=== PATIENT | female | born 1940 | race Caucasian/White ===

== ENCOUNTER → 2016-11-04 | Outpatient (CLI) | payer MEDICARE ==
[~2016-11-04] MED LIST: AMLO10TA2 PO; ASPI-557 PO; ATEN100T PO; CALC-699 PO; HYOS0.3739 PO; LOSA100T44 PO; MULT-833 PO; PRIM50TA30 PO; TOLT2CAP8 PO
== END ==
LOC: WC.BC 13:11
DX: Z12.31 Encounter for screening mammogram for malignant neoplasm of breast (principal); N64.59 Other signs and symptoms in breast; N64.89 Other specified disorders of breast
CPT/HCPCS: 77063; G0202

== ENCOUNTER 2016-12-17 03:17 | Emergency (ER) | payer MEDICARE ==
[~2016-12-17] VITALS: Ht 162.6 cm; Wt 75.0 kg
--- NOTE | 2016-12-17 03:17 | NUR ---
ED ARRIVAL BED #1 Addendum: 12/17/16 at 0520 by EJASONR ARRIVED BY EMS
--- OUTSIDE RECORDS SUMMARY | 2016-12-17 03:21 | XMS REPORT | Continuity of Care Document ---
Author Author [facility] Organization [facility] Address Unknown Phone Unavailable Support Name Relationship Address Phone COURTNEY VALLE MD Caregiver [address] [place] [address] HEATHER CAMPO MD Caregiver [address] [place] [phone] BC SLAUGHTER MD Caregiver [address] [place] [address] MARIELLE AMAYA Next Of Kin [address] [place] [address] Insurance Providers Payer Name Policy Number Subscriber Name Relationship Medicareadvantra Ppo [id number] Karthik Amaya 20 Self Advance Directives Directive Response Recorded Date/Time Advanced Directives Type None 09/02/14 5:08am Ordered Resuscitation Status Full Code 09/02/14 3:28am Resuscitation Documents on File No 09/02/14 5:46am Problems Medical Problems Problem Onset Date Status Open fracture ankle, bimalleolar Unknown Active Open fracture ankle, bimalleolar Unknown Active History of CVA (cerebrovascular accident) Unknown Active Hypertension Unknown Active Open fracture ankle, bimalleolar Unknown Active Bimalleolar ankle fracture Unknown Active Medications Medication Dose Route Sig Days/Qty Instructions Order Date Discontinued Date Status Atenolol 50 Mg PO DAILY 08/22/09 Active Calcium Carbonate/Vitamin D3 TWICE A DAY 08/22/09 Active Multivitamins W-Minerals DAILY 08/22/09 Active Atenolol TWICE A DAY 09/02/14 Active Losartan/Hydrochlorothiazide 1 Tab PO DAILY 09/02/14 Active Amlodipine Besylate 10 Mg PO DAILY 09/02/14 Active Clopidogrel Bisulfate DA 09/02/14 09/03/14 Discontinued Primidone 2 Tab PO THREE TIMES A DAY 09/02/14 Active Hyoscyamine Sulfate 1 Tab PO DAILY 09/02/14 Active Hydrocodone/Acetaminophen 1-2 Tab PO Q4H PRN PAIN 60 Qty 09/03/14 Active Docusate Sodium 1 Cap PO TWICE A DAY 30 Qty 09/03/14 Active Aspirin 325 Mg PO TWICE A DAY 0 Qty 09/03/14 Active Social History Social History Problem Response Recorded Date/Time Chewing Tobacco Status No 09/02/2014 2:29am Hx Substance Use No 09/02/2014 2:29am Hx Alcohol Use Y 3-4 A DAY 09/02/2014 2:29am Has the pt used tobacco in the last 12 months No 09/02/2014 5:48am Tobacco Usage none 09/02/2014 9:52am Query Response Start Date Stop Date Smoking Status Former smoker Hospital Discharge Instructions No hospital discharge instructions. Plan of Care No plan of care. Functional Status Query Response Date Recorded Physical Hygiene Self September 03, 2014 2:03pm Disabilities Visual September 03, 2014 2:03pm Devices Used Glasses Cane September 03, 2014 2:03pm Dressing Self September 03, 2014 2:03pm Ambulation Self September 03, 2014 2:03pm Diet Self September 03, 2014 2:03pm Mental Status Alert September 03, 2014 2:03pm Disabilities Visual September 03, 2014 2:03pm Devices Used Glasses Cane September 03, 2014 2:03pm Physical Hygiene Self September 03, 2014 2:03pm Dressing Self September 03, 2014 2:03pm Ambulation Self September 03, 2014 2:03pm Diet Self September 03, 2014 2:03pm Allergies, Adverse Reactions, Alerts Allergen Type Severity Reaction Status Last Updated Lisinopril Allergy Severe uncontrolled coughing Active 09/02/14 Immunizations Name Given Type Hx Influenza Vaccination Y 2013 Historical Hx Pneumococcal Vaccination Y 2008 Historical Hx Influenza Vaccination Y 2013 Historical Hx Tetanus Toxoid Vaccination Y unknown Historical Vital Signs Acute Vital Signs Vital Response Date/Time Temperature (Fahrenheit) 99.0 deg F (96.8 - 99.1) Temperature (Calculated Celsius) 37.62243 degrees C (36.0 - 37.3) Temperature Source Oral Pulse Rate (adult) 74 bpm (60 - 100) Respiratory Rate 16 breaths/min (10 - 20) O2 Sat by Pulse Oximetry 94 % (90 - 100) Oxygen Delivery Method Room Air Blood Pressure 139/64 mm Hg Blood Pressure Source Automatic Cuff Height 5 ft 4 in Weight 172 lb Body Mass Index 29.0 kg/m^2 Results Test Source Date Result Interp. Ref. Range Comments Urine Culture Indicated September 02, 2014 4:30am Cult reflexed &setup - Has specimen been collected/obtained? Y Urine Bacteria September 02, 2014 4:30am None seen - Has specimen been collected/obtained? Y Urine Squamous Epithelial Cells September 02, 2014 4:30am None seen - Has specimen been collected/obtained? Y Urine RBC September 02, 2014 4:30am None seen /HPF - Has specimen been collected/obtained? Y Urine WBC September 02, 2014 4:30am 10-20 /HPF H - MICROSCOPIC DONE UNSPUN. <2ML Urine Blood September 02, 2014 4:30am Trace-intact H - Has specimen been collected/obtained? Y Urine Bilirubin September 02, 2014 4:30am Negative - Has specimen been collected/obtained? Y Urine Urobilinogen September 02, 2014 4:30am 0.2 EU/DL - Has specimen been collected/obtained? Y Urine Ketones September 02, 2014 4:30am Negative - Has specimen been collected/obtained? Y Urine Glucose (UA) September 02, 2014 4:30am Negative - Has specimen been collected/obtained? Y Urine Protein September 02, 2014 4:30am Negative - Has specimen been collected/obtained? Y Urine Nitrite September 02, 2014 4:30am Positive H - Has specimen been collected/obtained? Y Urine Leukocyte Esterase September 02, 2014 4:30am 3+ H - Has specimen been collected/obtained? Y Urine pH September 02, 2014 4:30am 7.0 - Has specimen been collected/ obtained? Y Urine Specific [place] September 02, 2014 4:30am 1.015 - Has specimen been collected/obtained? Y Urine Turbidity September 02, 2014 4:30am Clear - Has specimen been collected/obtained? Y Urine Color September 02, 2014 4:30am Yellow - Has specimen been collected/obtained? Y Urine Collection Type September 02, 2014 4:30am Cleancatch-midstream - Has specimen been collected/obtained? Y Alanine Aminotransferase (ALT/SGPT) September 02, 2014 2:38am 30 U/L N 9- 52 Albumin September 02, 2014 2:38am 4.6 G/DL N 3.5-5.0 Albumin/Globulin Ratio September 02, 2014 2:38am 1.4 RATIO N 1.1-2.2 Alcohol, Quantitative September 02, 2014 2:38am 138 MG/DL - Alkaline Phosphatase September 02, 2014 2:38am 94 U/L N 38-126 Anion Gap September 02, 2014 2:38am 16 MEQ/L H 5-15 Aspartate Amino Transf (AST/SGOT) September 02, 2014 2:38am 36 U/L N 14- 36 BUN/Creatinine Ratio September 02, 2014 2:38am 17 RATIO N 6-26 Basophils # (Auto) September 02, 2014 2:38am 0.0 T/MM3 N 0-0.2 Basophils (%) (Auto) September 02, 2014 2:38am 0.5 % N 0-2 Blood Urea Nitrogen September 02, 2014 2:38am 12.0 MG/DL N 7-17 Calcium Level September 02, 2014 2:38am 9.4 MG/DL N 8.4-10.2 Calculated Osmolality September 02, 2014 2:38am 270 MOSM/KG N 261-280 Carbon Dioxide Level September 02, 2014 2:38am 24 MEQ/L N 22-30 Chemistry Specimen Hemolysis September 02, 2014 2:38am < 15 0-25 0-25: No Hemolysis.26-70: Slight Hemolysis - can falsely elevate K and Urine Protein. 71-285: Moderate Hemolysis - can falsely elevate K, Troponin I, CA 19-9, PTH, CSF GLucose, and Urine Protein, and can falsely decrease Phenytoin. 286-999: Gross Hemolysis - can falsely elevate K, Troponin I, CA 19-9, PTH, CSF Glucose, and Urine Protine, and can falsely decrease Phenytoin. Recommend specimen recollection. Chloride Level September 02, 2014 2:38am 100 MEQ/L N 98-107 Creatinine September 02, 2014 2:38am 0.7 MG/DL N 0.7-1.2 EKG August 22, 2009 10:15pm Complete - Eosinophils # (Auto) September 02, 2014 2:38am 0.1 T/MM3 N 0-0.5 Eosinophils (%) (Auto) September 02, 2014 2:38am 1.5 % N 0-4 Globulin September 02, 2014 2:38am 3.3 G/DL N 2.4-3.6 Glomerular Filtration Rate Calc September 02, 2014 2:38am 82 - Glucose Level September 02, 2014 2:38am 124 MG/DL H 65-110 Hematocrit September 02, 2014 2:38am 40.5 % N 36-46 Hemoglobin September 02, 2014 2:38am 13.5 GM/DL N 12-16 Icterus Index September 02, 2014 2:38am < 2 0-7 Immature Granulocyte # (Auto) September 02, 2014 2:38am 0.02 T/MM3 N 0.00- 0.03 Immature Granulocyte % (Auto) September 02, 2014 2:38am 0.3 % N 0.0-0.5 Lymphocytes # (Auto) September 02, 2014 2:38am 1.2 T/MM3 N 1-4.8 Lymphocytes (%) (Auto) September 02, 2014 2:38am 20.2 % L 23-45 Mean Corpuscular Hemoglobin September 02, 2014 2:38am 32.2 UUG N 26-34 Mean Corpuscular Hemoglobin Concent September 02, 2014 2:38am 33.3 GM/DL N 31-37 Mean Corpuscular Volume September 02, 2014 2:38am 96.7 UM3 N 80-100 Mean Platelet Volume September 02, 2014 2:38am 9.2 UM3 L 9.4-12.4 Monocytes # (Auto) September 02, 2014 2:38am 0.4 T/MM3 N 0-0.8 Monocytes (%) (Auto) September 02, 2014 2:38am 6.2 % N 0-9.0 Neutrophils # (Auto) September 02, 2014 2:38am 4.4 T/MM3 N 1.8-7.7 Neutrophils (%) (Auto) September 02, 2014 2:38am 71.3 % H 33-66 Platelet Count September 02, 2014 2:38am 231 T/MM3 N 130-400 Potassium Level September 02, 2014 2:38am 3.7 MEQ/L N 3.6-5 RDW Standard Deviation September 02, 2014 2:38am 42.1 FL N 36.9-50.2 Red Blood Count September 02, 2014 2:38am 4.19 M/MM3 N 4.00-5.20 Sodium Level September 02, 2014 2:38am 140 MEQ/L N 134-144 Total Bilirubin September 02, 2014 2:38am 0.30 MG/DL N 0.20-1.30 Total Protein September 02, 2014 2:38am 7.9 G/DL N 6.3-8.2 Turbidity September 02, 2014 2:38am < 20 0-20 White Blood Count September 02, 2014 2:38am 6.2 T/MM3 N 4.5-11.0 Urine Culture Urine, Clean Catch-Midstream September 02, 2014 4:50am Mixed [place] Prob. Contaminants Name: KARTHIK AMAYA Unit #: [id number] : 1940 Sex: F Loc / Svc: SRG DOS: 09/02/14 Signed Report #: [id number] DIAGNOSTIC IMAGING REPORT TYPE OF EXAM: RF FLUOROSCOPY CHARGE </=1 HR Dictated By: KINZA BOX MD INDICATION: ITS.REASON: CLOSED REDUCTION RF ANKLE RIGHT 2 VIEW: Comparison: Ankle radiographs dated September 02, 2014 Findings: Two fluoroscopic spot images show closed reduction of the bimalleolar ankle fracture with improved alignment of the fracture fragments and splinting. Impression: Fluoroscopy as above. . Procedures Procedure Status Date Provider(s) Closed reduction of dislocation completed 09/02/14 BC SLAUGHTER MD
--- OUTSIDE RECORDS SUMMARY | 2016-12-17 03:21 | XMS REPORT | Continuity of Care Document ---
Author Author [facility] Organization [facility] Address Unknown Phone Unavailable Support Name Relationship Address Phone COURTNEY VALLE MD Caregiver [address] [place] [address] HEATHER CAMPO MD Caregiver [address] [phone] BC BETTS MD Caregiver [address] [place] [address] MARIELLE AMAYA Next Of Kin [address] [place] [address] Insurance Providers Payer Name Policy Number Subscriber Name Relationship Medicareadvantra Ppo [id number] Karthik Amaya 20 Self Advance Directives Directive Response Recorded Date/Time Advanced Directives Type None 09/02/14 5:08am Ordered Resuscitation Status Full Code 09/02/14 3:28am Resuscitation Documents on File No 09/02/14 5:46am Chief Complaint and Reason for Visit Chief Complaint BIMALLEOLAR FX R ANKLE Reason for Visit Open fracture ankle, bimalleolar Open fracture ankle, bimalleolar History of CVA (cerebrovascular accident) Hypertension Open fracture ankle, bimalleolar Bimalleolar ankle fracture Problems Medical Problems Problem Onset Date Status [...] Smoking Status Former smoker Hospital Discharge Instructions Instructions: Care Instructions: Reason for Hospitalization: right ankle bimalleolar ankle fracture I was in the hospital because (patient own words): "BECAUSE I FELL AND BROKE MY ANKLE" Discharge Diet: regluar Discharge Activity: non weight bearing right leg Follow Up Appointments: [address] Betts. call [phone] to arrange. FOLLOW UP APPOINTMENT IS ON Monday09-08-14 AT 10:15 AM, NEEDS TO CHECK IN AT THE OFFICE AT 9:45 AM. Wound/Incision Care: keep splint and dressing dry. Durable Medical Equipment: walker is already ordered Notify Physician If: fever greater than 101, chest pain, shortness of breath, calf pain Condition at time of discharge: Fair Bilirubin Level: 7.2 Congenital Heart Disease Screening Result: Pass Plan of Care Discharge Date 09/03/14 4:10pm Disposition 01 DISCHARGED HOME, SELF-CARE Instructions/Education Provided [facility] Ortho Fracture Instruction Fracture Reduction -- Closed Prescriptions See Medications Section Functional Status Query Response Date Recorded Physical [...] F (96.8 - 99.1) Temperature (Calculated Celsius) 37.42358 degrees C (36.0 - 37.3) Temperature Source [...] specimen been collected/ obtained? Y Urine Specific [place] September 02, 2014 4:30am 1.015 - Has [...] 2014 4:50am Mixed [place] Prob. Contaminants Name: KRATHIK AMAYA Unit #: [id number] : 1940 Sex: F [facility] [place] DOS: 09/02/14 Signed Report #: [id number] DIAGNOSTIC IMAGING REPORT TYPE OF EXAM: RF [...] Closed reduction of dislocation completed 09/02/14 BC BETTS MD Encounters Encounter Location Date/Time Admitted Inpatient [facility] 09/02/14 3:23am Recent Diagnosis Open fracture ankle, bimalleolar Open fracture ankle, bimalleolar History of CVA (cerebrovascular accident) Hypertension Open fracture ankle, bimalleolar Bimalleolar ankle fracture
--- OUTSIDE RECORDS SUMMARY | 2016-12-17 03:21 | XMS REPORT | Referral Summary ---
Author Author [facility] Organization [facility] Address Unknown Phone Unavailable Care Team Providers Care Credit Director Name Role Phone Gino Neri Primary Care Physician [phone] Encounter VC Date(s): 02/16/16 - 02/16/16 [facility], [address] [place] [address] Discharge Diagnosis: Hyperpigmented skin lesion. Discharge Disposition: 01-Home or Self Care Attending Physician: Mari Neri DO Admitting Physician: Mari Neri DO Vital Signs Most recent to 1 oldest [Reference Range]: Peripheral Pulse 68 bpm Rate [60-100 bpm] (02/16/16 2:32 PM) Respiratory Rate 18 br/min [14-20 br/min] (02/16/16 2:32 PM) Blood Pressure 122/76 mmHg [90-140/60-90 mmHg] (02/16/16 2:32 PM) SpO2 96 % (02/16/16 2:32 PM) Problem List Condition Effective Dates Status Health Status Informant Arthritis(Confirmed) Active Benign essential Active hypertension(Confirm ed) Chicken pox as Active child(Confirmed) Micro Embolus to Active Foot(Confirmed) Hypertension(Confirm Resolved ed) Irritable bowel Active syndrome(Confirmed) Osteoarthritis(Confi Active rmed) Osteopenia(Confirmed Active ) Overweight(Confirmed Active ) Peripheral vascular Active disease(Confirmed) Pneumonia(Confirmed) 1982 Active Pure Active hypercholesterolemia (Confirmed) Senile Active osteoporosis(Confirm ed) Skin Active condition(Confirmed) Stroke(Confirmed) Active TIA(Confirmed) Active Allergies, Adverse Reactions, Alerts Substance Reaction Severity Status lisinopril Active Medications amLODIPine 10 mg oral tablet 10 mg 1 tabs, Oral, Daily, # 90 tabs, 1 Refill(s), Pharmacy: [facility] [id number], 1 tabs Oral Daily Start Date: 09/18/15 Status: Ordered aspirin 81 mg, Oral, Daily, 0 Refill(s) Start Date: 07/27/15 Status: Ordered atenolol 50 mg oral tablet See Instructions, TAKE 1 TABLET BY MOUTH DAILY ALONG WITH 100MG TABLET TO TOTAL 250MG DAILY, # 30 tabs, 3 Refill(s), eRx: [facility] [id number], TAKE 1 TABLET BY MOUTH DAILY ALONG WITH 100MG TABLET TO TOTAL 250MG DAILY Start Date: 01/26/16 Status: Ordered Calcium 600+D 600 mg-200 intl units oral tablet tabs, Oral, BID, 0 Refill(s) Start Date: 04/30/14 Status: Ordered Detrol LA 2 mg oral capsule, extended release 2 mg 1 caps, Oral, Daily, # 30 caps, 2 Refill(s), Pharmacy: [facility] [id number], 1 caps Oral Daily Start Date: 12/22/15 Status: Ordered hyoscyamine 0.375 mg oral tablet, extended release See Instructions, 1 TABS ORAL Q12HR,INSTR, # 60 tabs, 5 Refill(s), Pharmacy: [facility] [id number], 1 TABS ORAL Q12HR,INSTR Start Date: 07/27/15 Status: Ordered losartan 100 mg oral tablet 100 mg 1 tabs, Oral, Daily, # 30 tabs, 5 Refill(s), Pharmacy: [facility] [id number], 1 tabs Oral Daily Start Date: 07/15/15 Status: Ordered Multivitamins oral tablet 1 tabs, Oral, Daily Start Date: 04/30/14 Status: Ordered naproxen 500 mg oral tablet See Instructions, 1 TABS ORAL BID, # 60 tabs, eRx: [facility] [id number], 1 TABS ORAL BID Start Date: 09/18/15 Status: Ordered primidone 50 mg oral tablet 2 tabs, Oral, TID Start Date: 04/30/14 Status: Ordered rOPINIRole 0.5 mg oral tablet 0.5 mg 1 tabs, Oral, BID, 0 Refill(s) Start Date: 02/16/16 Status: Ordered Results No data available for this section Immunizations Vaccine Date Refusal Reason tetanus/diphth/pertuss (Tdap) adult/adol1 09/02/14 tetanus/diphth/pertuss (Tdap) adult/adol 12/17/12 hepatitis B pediatric vaccine 11/26/07 hepatitis B pediatric vaccine 07/05/07 hepatitis B pediatric vaccine 05/25/07 influenza virus vaccine, inactivated 05/29/15 influenza virus vaccine, live 04/23/13 influenza virus vaccine, live 05/25/12 pneumococcal 13-valent conjugate vaccine 12/08/14 pneumococcal 23-polyvalent vaccine 05/25/07 tetanus-diphth toxoids (Td) adult/adol 05/08/02 zoster vaccine live 04/06/09 1Location History: given at [facility] Procedures Procedure Date Related Diagnosis Body Site Colonoscopic polypectomy1 11/23/15 Hysterectomy 1986 Adenoidectomy Carpal tunnel release - B/L Cataract extraction Dilation and curettage Tonsillectomy 1April 2015 colonoscopy tubular adenoma 1, sigmoid diverticulosis, repeat in 5 years Social History Social History Type Response Smoking Status Former smoker; Type: Cigarettes1 1Quit in 1990 Assessment and Plan Extracted from: Title: ACUTE skin lesion Author: Mari Neri DO Date: 02/16/16 Assessment/Plan Hyperpigmented skin lesion. Due to the atypical appearance of this lesion I would recommend the patient return to clinicat her convenience to have a completely excised. Ordered: Office Visit Level 3 Est [address]88
--- OUTSIDE RECORDS SUMMARY | 2016-12-17 03:21 | XMS REPORT | Referral Summary ---
Author Author [facility] Organization [facility] Address Unknown Phone Unavailable Care Team Providers [facility] Name Role Phone Gino Neri Primary Care Physician [phone] Encounter VC Date(s): 05/29/15 - 05/29/15 [facility] [address] [place] [address] Discharge Disposition: 01-Home or Self Care Attending Physician: Mari Neri DO Admitting Physician: Mari Neri DO Vital Signs No data available for this section Problem List Condition Effective Dates Status Health [...] Active Medications amLODIPine 10 mg oral tablet See Instructions, TAKE 1 TABLET BY MOUTH EVERY DAY., # 90 unknown unit, 2 Refill (s), eRx: [facility] [id number], TAKE 1 TABLET BY MOUTH EVERY DAY. Start Date: 07/07/14 Status: Ordered atenolol 100 mg oral tablet See Instructions, 1 TABS ORAL DAILY,INSTR:*LAST REFILL UNTIL SEEN*; YOU WILL NEED TO SET UP APPOINTMENT WITH A NEW DOC. OR DR. NERI, # 30 tabs, eRx: [facility] [id number], 1 TABS ORAL DAILY,INSTR:*LAST REFILL UNTIL SEEN*; YOU WILL NEED TO SET UP... Start Date: 05/21/15 Status: Ordered Calcium 600+D 600 mg-200 intl units oral tablet tabs, Oral, BID, 0 Refill(s) Start Date: 04/30/14 Status: Ordered clopidogrel 75 mg oral tablet See Instructions, TAKE 1 TABLET BY MOUTH EVERY DAY EXCEPT SUNDAYS NEEDED, # 30 tabs, 0 Refill(s), [place], [facility] [id number], * last refill utnil seen*; you will need to set up appointment with Dr. Neri, TAKE 1 TABLET BY MOUTH EVERY... Start Date: 05/06/15 Status: Ordered Colace 100 mg oral capsule 1 caps, Oral, BID, 0 Refill(s) Start Date: 09/05/14 Status: Ordered hyoscyamine 0.375 mg oral tablet, extended release 0.375 mg 1 tabs, Oral, q12hr, *last script until seen* you will need to make appointment with new doc. or Dr. Neri, # 60 tabs, 0 Refill(s), Pharmacy: [facility] [id number], 1 tabs Oral q12hr,Instr:*last script until seen*; you will need to make... Start Date: 04/03/15 Status: Ordered losartan 100 mg oral tablet 100 mg 1 tabs, Oral, Daily, *last refill until seen* you will need to set up appointment with a new doc. or Dr. Neri, # 60 tabs, 0 Refill(s), Pharmacy: [facility] [id number], 1 tabs Oral Daily,Instr:*last refill until seen*; you will need to set... Start Date: 04/15/15 Status: Ordered Multivitamins oral tablet 1 tabs, Oral, Daily Start Date: 04/30/14 Status: Ordered primidone 50 mg oral tablet 2 tabs, Oral, TID Start Date: 04/30/14 Status: Ordered Results No data available for [...] vaccine live 04/06/09 1Location History: given at [facility] Procedures Procedure Date Related Diagnosis Body Site Hysterectomy 1986 Adenoidectomy Carpal tunnel release - B/L Cataract extraction Dilation and curettage Tonsillectomy Social History Social History Type Response Smoking Status Former smoker; Type: Cigarettes1 1Quit in 1990 Assessment and Plan No data available for this section
--- OUTSIDE RECORDS SUMMARY | 2016-12-17 03:21 | XMS REPORT | Referral Summary ---
Author Author [facility] Organization [facility] Address Unknown Phone Unavailable Care Team Providers Care Helper/Driver Name Role Phone Gino Neri Primary Care Physician [phone] Encounter VC Date(s): 06/23/15 - 06/23/15 [facility] [address] [place] [id number] Discharge Diagnosis: Cerumen impaction Discharge Diagnosis: Hypertension Discharge Diagnosis: Irritable bowel syndrome Discharge Disposition: 01-Home or Self Care Attending Physician: Mari Neri DO Admitting Physician: Mari Neri DO Vital Signs Most recent to 1 oldest [Reference Range]: Peripheral Pulse 70 bpm Rate [60-100 bpm] (06/23/15 2:33 PM) Blood Pressure 142/80 mmHg [90-140/60-90 mmHg] *HI* (06/23/15 2:33 PM) SpO2 94 % (06/23/15 2:33 PM) Problem List Condition Effective Dates Status [...] MOUTH EVERY DAY., # 90 unknown unit, eRx: [facility] [id number], TAKE 1 TABLET BY MOUTH EVERY DAY. Start Date: 06/18/15 Status: Ordered atenolol 100 mg oral tablet See Instructions, 1 TABS ORAL BID,INSTR:PATIENT TAKES 250MG DAILY, # 60 tabs, eRx: [facility] [id number], 1 TABS ORAL BID,INSTR:PATIENT TAKES 250MG DAILY Start Date: 06/18/15 Status: Ordered atenolol 50 mg oral tablet 50 mg 1 tabs, Oral, Daily, # 30 tabs, 0 Refill(s) Start Date: 06/23/15 Status: Ordered Calcium 600+D 600 mg-200 intl units oral tablet tabs, Oral, BID, 0 Refill(s) Start Date: 04/30/14 Status: Ordered clopidogrel 75 mg oral tablet See Instructions, TAKE 1 TABLET BY MOUTH EVERY DAY EXCEPT SUNDAYS NEEDED, # 30 tabs, BROOKE, eRx: [facility] [id number], TAKE 1 TABLET BY MOUTH EVERY DAY EXCEPT SUNDAYS NEEDED Start Date: 06/18/15 Status: Ordered hyoscyamine 0.375 mg oral tablet, extended release See Instructions, 1 TABS ORAL Q12HR,INSTR:*LAST SCRIPT UNTIL SEEN*; YOU WILL NEED TO MAKE APPOINTMENT WITH NEW DOC. OR DR. NERI, # 60 tabs, eRx: [facility] [id number], 1 TABS ORAL Q12HR,INSTR:*LAST SCRIPT UNTIL SEEN*; YOU WILL NEED TO MAKE APPOIN... Start Date: 06/02/15 Status: Ordered losartan 100 mg oral tablet 100 mg 1 tabs, Oral, Daily, NEEDS TO SET UP APPOINTMENT, # 30 tabs, 0 Refill(s) , Pharmacy: [facility] [id number], 1 tabs Oral Daily,Instr:NEEDS TO SET UP APPOINTMENT Start Date: 06/15/15 Status: Ordered Multivitamins oral tablet 1 tabs, [...] pediatric vaccine 05/25/07 influenza virus vaccine, inactivated 10/23/15 influenza virus vaccine, live 04/23/13 influenza virus vaccine, live 05/25/12 pneumococcal 13-valent conjugate vaccine 12/08/14 pneumococcal 23-polyvalent vaccine 05/25/07 tetanus-diphth toxoids (Td) adult/adol 05/08/02 zoster vaccine live 04/06/09 1Location History: given [place] [facility] [place] Procedures Procedure Date Related Diagnosis Body Site Hysterectomy 1986 Adenoidectomy Carpal tunnel release - B/L Cataract extraction Dilation and curettage Tonsillectomy Social History Social History Type Response Smoking Status Former smoker; Type: Cigarettes1 1Quit in 1990 Assessment and Plan Extracted from: Title: Office Visit Note Author: Mari Neri DO Date: 06/23/15 Assessment/Plan Cerumen impaction Ear lavage today. Ordered: Office Visit Level 4 Est 82927 Hypertension Stable, labs as below. Return to clinic 6 months. Ordered: Comprehensive Metabolic Panel Office Visit Level 4 Est 79628 Irritable bowel syndrome Continue hyoscyamine, return to clinic 6 months. Patient is due for colonoscopy and this was recommended and form provided today. Ordered: Office Visit Level 4 Est 97283 Orders: Lipid Panel
--- OUTSIDE RECORDS SUMMARY | 2016-12-17 03:21 | XMS REPORT | Continuity of Care Document ---
Author Author [facility] Organization [facility] Address Unknown Phone Unavailable Allergies Medications Problems Procedures Results Encounters ACCT No. Visit Date/Time Discharge Status Pt. Type Provider Facility Loc./Unit Complaint [id number] 10/28/2013 13:01:00 10/28/2013 23 :59:59 CLS Outpatient
--- OUTSIDE RECORDS SUMMARY | 2016-12-17 03:21 | XMS REPORT | Referral Summary ---
Author Author [facility] Organization [facility] Address Unknown Phone Unavailable Care Team Providers Care Cold Rolling Machine Setter Name Role Phone Gino Neri Primary Care Physician [phone] Encounter VC Date(s): 12/22/15 - 12/22/15 [facility] [address] [place] [address] Discharge Diagnosis: OAB (overactive bladder) Discharge Diagnosis: Benign essential hypertension Discharge Diagnosis: Irritable bowel syndrome Discharge Disposition: 01-Home or Self Care Attending Physician: Mari Neri DO Admitting Physician: Mari Neri DO Vital Signs Most recent to 1 oldest [Reference Range]: Temperature Tympanic 37.0 degC [36.6-38.1 degC] (12/22/15 2:26 PM) Peripheral Pulse 78 bpm Rate [60-100 bpm] (12/22/15 2:26 PM) Respiratory Rate 17 br/min [14-20 br/min] (12/22/15 2:26 PM) Blood Pressure 148/80 mmHg [90-140/60-90 mmHg] *HI* (12/22/15 2:26 PM) SpO2 97 % (12/22/15 2:26 PM) Problem List Condition Effective Dates Status [...] Daily, # 90 tabs, 1 Refill(s), Pharmacy: [id number], 1 tabs Oral Daily Start Date: 09/18/15 Status: Ordered aspirin 81 mg, Oral, Daily, 0 Refill(s) Start Date: 07/27/15 Status: Ordered atenolol 100 mg oral tablet See Instructions, TAKE 1 TABLET BY MOUTH TWICE DAILY ALONG WITH 50MG TABLET TO TOTAL 250MG DAILY, # 60 tabs, 2 Refill(s), eRx: [facility] [id number], TAKE 1 TABLET BY MOUTH TWICE DAILY ALONG WITH 50MG TABLET TO TOTAL 250MG DAILY Start Date: 12/22/15 Status: Ordered atenolol 50 mg oral tablet See Instructions, TAKE 1 TABLET BY MOUTH DAILY ALONG WITH 100MG TABLET TO TOTAL 250MG DAILY, # 30 tabs, eRx: [facility] [id number], TAKE 1 TABLET BY MOUTH DAILY ALONG WITH 100MG TABLET TO TOTAL 250MG DAILY Start Date: 12/22/15 Status: Ordered Calcium 600+D 600 mg-200 intl units oral tablet tabs, Oral, BID, 0 Refill(s) Start Date: 04/30/14 Status: Ordered Detrol LA 2 mg oral capsule, extended release 2 mg 1 caps, Oral, Daily, # 30 caps, 2 Refill(s), Pharmacy: [facility] [id number], 1 caps Oral Daily Start Date: 12/22/15 Status: Ordered hyoscyamine 0.375 mg oral tablet, extended release See Instructions, 1 TABS ORAL Q12HR,INSTR, # 60 tabs, 5 Refill(s), Pharmacy: [facility] [id number], 1 TABS ORAL Q12HR,INSTR Start Date: 07/27/15 Status: Ordered losartan 100 mg oral tablet 100 mg 1 tabs, Oral, Daily, # 30 tabs, 5 Refill(s), Pharmacy: [facility] [id number], 1 tabs Oral Daily Start Date: 07/15/15 Status: Ordered Multivitamins oral tablet 1 tabs, Oral, Daily Start Date: 04/30/14 Status: Ordered naproxen 500 mg oral tablet See Instructions, 1 TABS ORAL BID, # 60 tabs, eRx: [facility] [id number], 1 TABS ORAL BID Start Date: 09/18/15 [...] vaccine live 04/06/09 1Location History: given at [facility] [place] [place] Procedures Procedure Date Related Diagnosis Body Site [...] Visit Note Author: Mari Neri DO Date: 12/22/15 Assessment/Plan Benign essential hypertension Continue current medication regimen. Return to clinic in 6 months. Recheck blood pressure today was 138/82. Ordered: Office Visit Level 4 Est 06954 Irritable bowel syndrome Continue hyoscyamine. Return to clinic 6 months. Ordered: Office Visit Level 4 Est 23642 OAB (overactive bladder) We will try Detrol again. We discussed multiple options and this is the one she would like to take. We also discussed Keagle exercises to see if this will help. If she is doing well on the Detrol she should return to clinic in 6 months. If she is not she should return to clinic sooner. Ordered: Office Visit Level 4 Est 27452 Orders: atenolol, See Instructions, TAKE 1 TABLET BY MOUTH DAILY ALONG WITH 100MG TABLET TO TOTAL 250MG DAILY, # 30 tabs, eRx: [facility] [id number], TAKE 1 TABLET BY MOUTH DAILY ALONG WITH 100MG TABLET TO TOTAL 250MG DAILY atenolol, See Instructions, TAKE 1 TABLET BY MOUTH TWICE DAILY ALONG WITH 50MG TABLET TO TOTAL 250MG DAILY, # 60 tabs, 2 Refill(s), eRx: [facility] [id number], TAKE 1 TABLET BY MOUTH TWICE DAILY ALONG WITH 50MG TABLET TO TOTAL 250MG DAILY tolterodine, 2 mg 1 caps, Oral, Daily, # 30 caps, 2 Refill(s), Pharmacy: [facility] [id number], 1 caps Oral Daily
--- OUTSIDE RECORDS SUMMARY | 2016-12-17 03:21 | XMS REPORT | Referral Summary ---
Author Author [facility] Organization [facility] Address Unknown Phone Unavailable Care Team Providers Care Therapeutic Consultant Name Role Phone Gino Neri Primary Care Physician [phone] Encounter VC Date(s): 09/07/16 - 09/07/16 [facility] [address] [place] [address] Discharge Diagnosis: Non-traumatic compression fracture of L2 lumbar vertebra Discharge Diagnosis: Benign essential hypertension Discharge Diagnosis: Osteopenia Discharge Disposition: 01-Home or Self Care Attending Physician: Mari Neri DO Admitting Physician: Mari Neri DO Vital Signs Most recent to 1 oldest [Reference Range]: Temperature Tympanic 36.6 degC [36.6-38.1 degC] (09/07/16 3:45 PM) Peripheral Pulse 79 bpm Rate [60-100 bpm] (09/07/16 3:45 PM) Blood Pressure 160/102 mmHg [90-140/60-90 mmHg] *HI* (09/07/16 3:45 PM) Problem List Condition Effective Dates Status Health Status Informant Arthritis(Confirmed) Active Benign essential Active hypertension(Confirm ed) Chicken pox as Active child(Confirmed) Non-traumatic Active compression fracture of L2 lumbar vertebra(Confirmed) Micro Embolus to Active Foot(Confirmed) Benign essential Active tremor(Confirmed) OAB (overactive Active bladder)(Confirmed) Hypertension(Confirm Resolved ed) Irritable bowel Active syndrome(Confirmed) Osteoarthritis(Confi Active rmed) Osteopenia(Confirmed Active ) Overweight(Confirmed Active ) Peripheral vascular Active disease(Confirmed) Pneumonia(Confirmed) 1982 Active Pure Active hypercholesterolemia (Confirmed) Senile Active osteoporosis(Confirm ed) Skin Active condition(Confirmed) Stroke(Confirmed) Active TIA(Confirmed) Active Allergies, Adverse Reactions, Alerts Substance Reaction Severity Status lisinopril Active Medications amLODIPine 10 mg oral tablet See Instructions, TAKE 1 TABLET BY MOUTH DAILY, # 90 tabs, [facility], TAKE 1 TABLET BY MOUTH DAILY Start Date: 06/14/16 Status: Ordered aspirin 81 mg, Oral, Daily, 0 Refill(s) Start Date: 07/27/15 Status: Ordered atenolol 50 mg oral tablet See Instructions, TAKE 1 TABLET BY MOUTH DAILY ALONG WITH 100MG TABLET TO TOTAL 250MG DAILY, # 90 tabs, [id number] Start Date: 08/31/16 Status: Ordered Calcium 600+D 600 mg-200 intl units oral tablet tabs, Oral, BID, 0 Refill(s) Start Date: 04/30/14 Status: Ordered cloNIDine 0.1 mg oral tablet 0.1 mg 1 tabs, Oral, BID, # 60 tabs, 0 Refill(s), Pharmacy: [facility], 1 tabs Oral BID Start Date: 09/07/16 Status: Ordered hydrALAZINE 10 mg oral tablet See Instructions, TAKE 1 TABLET BY MOUTH THREE TIMES DAILY, # 180 tabs, [id number] Start Date: 07/25/16 Status: Ordered hyoscyamine 0.375 mg oral tablet, extended release See Instructions, 1 TABS ORAL Q12HR,INSTR, # 60 tabs, 1 Refill(s), [facility], 1 TABS ORAL Q12HR,INSTR Start Date: 08/03/16 Status: Ordered losartan 100 mg oral tablet See Instructions, TAKE 1 TABLET BY MOUTH EVERY DAY, # 90 tabs, [id number] Start Date: 08/02/16 Status: Ordered Multivitamins oral tablet 1 tabs, Oral, Daily Start Date: 04/30/14 Status: Ordered naproxen 500 mg oral tablet See Instructions, 1 TABS ORAL BID, # 60 tabs, eRx: [facility] [id number], 1 TABS ORAL BID Start Date: 09/18/15 Status: Ordered primidone 50 mg oral tablet 2 tabs, Oral, TID Start Date: 04/30/14 Status: Ordered tolterodine 2 mg oral capsule, extended release See Instructions, TAKE 1 CAPSULE BY MOUTH DAILY, # 90 caps, 3 Refill(s), eRx: [facility] [id number], TAKE 1 CAPSULE BY MOUTH DAILY Start Date: 06/29/16 Status: Ordered tolterodine 2 mg oral capsule, extended release See Instructions, TAKE 1 CAPSULE BY MOUTH DAILY, # 30 caps, 3 Refill(s), Pharmacy: [facility] [id number], TAKE 1 CAPSULE BY MOUTH DAILY Start Date: 08/03/16 Status: Ordered Results No data available for this section Immunizations Given and Recorded Vaccine Date Status Refusal Reason tetanus/diphth/pertuss (Tdap) adult/adol1 09/02/14 Recorded tetanus/diphth/pertuss (Tdap) adult/adol 12/17/12 Recorded hepatitis B pediatric vaccine 11/26/07 Given hepatitis B pediatric vaccine 07/05/07 Given hepatitis B pediatric vaccine 05/25/07 Given influenza virus vaccine, inactivated 05/24/16 Given influenza virus vaccine, inactivated 05/29/15 Given influenza virus vaccine, live 04/23/13 Given influenza virus vaccine, live 05/25/12 Given pneumococcal 13-valent conjugate vaccine 12/08/14 Given pneumococcal 23-polyvalent vaccine 05/25/07 Recorded tetanus-diphth toxoids (Td) adult/adol 05/08/02 Given zoster vaccine live 04/06/09 Given 1Location History: [place] [facility] [place] Procedures Procedure Date Related Diagnosis Body Site Colonoscopic polypectomy1 11/23/15 Hysterectomy 1986 Adenoidectomy Carpal tunnel release - B/L Cataract extraction Dilation and curettage Tonsillectomy 1April 2015 colonoscopy tubular adenoma 1, sigmoid diverticulosis, repeat in 5 years Social History Social History Type Response Smoking Status Former smoker; Type: Cigarettes1 1Quit in 1990 Assessment and Plan Extracted from: Title: Ambulatory Patient Education Author: Mari Neri DO Date: 09/07/16 Preventive Medicine Managing Your High Blood Pressure Blood pressure is a measurement of how forceful your blood is pressing against the arias of the arteries. Arteries are muscular tubes within the circulatory system. Blood pressure does not stay the same. Blood pressure rises when you are active, excited, or nervous; and it lowers during sleep and relaxation. If the numbers measuring your blood pressure stay above normal most of the time, you are at risk for health problems. High blood pressure (hypertension) is a long-term (chronic) condition in which blood pressure is elevated. A blood pressure reading is recorded as two numbers, such as 120 over 80 (or 120 /80). The first, higher number is called the systolic pressure. It is a measure of the pressure in your arteries as the heart beats. The second, lower number is called the diastolic pressure. It is a measure of the pressure in your arteries as the heart relaxes between beats. Keeping your blood pressure in a normal range is important to your overall health and prevention of health problems, such as heart disease and stroke. When your blood pressure is uncontrolled, your heart has to work harder than normal. High blood pressure is a very common condition in adults because blood pressure tends to rise with age. Men and women are equally likely to have hypertension but at different times in life. Before age 45, men are more likely to have hypertension. After 65 years of age, women are more likely to have it. Hypertension is especially common in Americans. This condition often has no signs or symptoms. The cause of the condition is usually not known. Your caregiver can help you come up with a plan to keep your blood pressure in a normal, healthy range. BLOOD PRESSURE STAGES Blood pressure is classified into four stages: normal, prehypertension, stage 1 , and stage 2. Your blood pressure reading will be used to determine what type of treatment, if any, is necessary. Appropriate treatment options are tied to these four stages: Normal Systolic pressure (mm Hg): below 120. Diastolic pressure (mm Hg): below 80. Prehypertension Systolic pressure (mm Hg): 120 to 139. Diastolic pressure (mm Hg): 80 to 89. Stage1 Systolic pressure (mm Hg): 140 to 159. Diastolic pressure (mm Hg): 90 to 99. Stage2 Systolic pressure (mm Hg): 160 or above. Diastolic pressure (mm Hg): 100 or above. RISKS RELATED TO HIGH BLOOD PRESSURE Managing your blood pressure is an important responsibility. Uncontrolled high blood pressure can lead to: A heart attack. A stroke. A weakened blood vessel (aneurysm). Heart failure. Kidney damage. Eye damage. Metabolic syndrome. Memory and concentration problems. HOW TO MANAGE YOUR BLOOD PRESSURE Blood pressure can be managed effectively with lifestyle changes and medicines ( if needed). Your caregiver will help you come up with a plan to bring your blood pressure within a normal range. Your plan should include the following: Education Read all information provided by your caregivers about how to control blood pressure. Educate yourself on the latest guidelines and treatment recommendations. New research is always being done to further define the risks and treatments for high blood pressure. Lifestylechanges Control your weight. Avoid smoking. Stay physically active. Reduce the amount of salt in your diet. Reduce stress. Control any chronic conditions, such as high cholesterol or diabetes. Reduce your alcohol intake. Medicines Several medicines (antihypertensive medicines) are available, if needed, to bring blood pressure within a normal range. Communication Review all the medicines you take with your caregiver because there may be side effects or interactions. Talk with your caregiver about your diet, exercise habits, and other lifestyle factors that may be contributing to high blood pressure. See your caregiver regularly. Your caregiver can help you create and adjust your plan for managing high blood pressure. RECOMMENDATIONS FOR TREATMENT AND FOLLOW-UP The following recommendations are based on current guidelines for managing high blood pressure in non adults. Use these recommendations to identify the proper follow-up period or treatment option based on your blood pressure reading. You can discuss these options with your caregiver. Systolic pressure of 120 to 139 or diastolic pressure of 80 to 89: Follow up with your caregiver as directed. Systolic pressure of 140 to 160 or diastolic pressure of 90 to 100: Follow up with your caregiver within 2 months. Systolic pressure above 160 or diastolic pressure above 100: Follow up with your caregiver within 1 month. Systolic pressure above 180 or diastolic pressure above 110: Consider antihypertensive therapy; follow up with your caregiver within 1 week. Systolic pressure above 200 or diastolic pressure above 120: Begin antihypertensive therapy; follow up with your caregiver within 1 week. This information is not intended to replace advice given to you by your health care provider. Make sure you discuss any questions you have with your health care provider. Document Released: 04/17/2013 Document Reviewed: 04/17/2013 [employer] Patient Education 2016 [employer] No follow up information was provided. Extracted from: Title: Office Visit Note Author: Mari Neri DO Date: 09/07/16 Assessment/Plan Benign essential hypertension We will add clonidine and have patient return to clinic in 4 weeks. He is to continue blood pressure log. Ordered: Office Visit Level 4 Est 23607 Non-traumatic compression fracture of L2 lumbar vertebra Pain is improved with Motrin and chiropractic, we'll discontinue the hydrocodone. Ordered: Office Visit Level 4 Est 67359 Osteopenia Given patient's nontraumatic compression fractureand the fact that she is failed oral medicationI will recommend Prolia at this time. Ordered: Office Visit Level 4 Est 45985
--- OUTSIDE RECORDS SUMMARY | 2016-12-17 03:21 | XMS REPORT | Referral Summary ---
Author Author [facility] Organization [facility] Address Unknown Phone Unavailable Care Team Providers Care Asset Liability Analyst Name Role Phone Gino Neri Primary Care Physician [phone] Encounter VC Date(s): 03/03/16 - 03/03/16 [facility], Family [address] [place] [address]- Discharge Diagnosis: Benign essential hypertension Discharge Diagnosis: Arm skin lesion, left Discharge Disposition: 01-Home or Self Care Attending Physician: Mari Neri DO Vital Signs Most recent to 1 oldest [Reference Range]: Peripheral Pulse 68 bpm Rate [60-100 bpm] (03/03/16 3:24 PM) Blood Pressure 180/92 mmHg [90-140/60-90 mmHg] *HI* (03/03/16 3:24 PM) Problem List Condition Effective Dates Status [...] Daily, # 90 tabs, 1 Refill(s), Pharmacy: [id number], 1 tabs Oral Daily Start Date: 09/18/15 Status: Ordered aspirin 81 mg, Oral, Daily, 0 Refill(s) Start Date: 07/27/15 Status: Ordered atenolol 50 mg oral tablet See Instructions, TAKE 1 TABLET BY MOUTH DAILY ALONG WITH 100MG TABLET TO TOTAL 250MG DAILY, # 30 tabs, 3 Refill(s), [facility]: [id number], TAKE 1 TABLET BY MOUTH DAILY ALONG WITH 100MG TABLET TO TOTAL 250MG DAILY Start Date: 01/26/16 Status: Ordered Calcium 600+D 600 mg-200 intl units oral tablet tabs, Oral, BID, 0 Refill(s) Start Date: 04/30/14 Status: Ordered Detrol LA 2 mg oral capsule, extended release 2 mg 1 caps, Oral, Daily, # 30 caps, 2 Refill(s), Pharmacy: [facility] [id number], 1 caps Oral Daily Start Date: 12/22/15 Status: Ordered hyoscyamine 0.375 mg oral tablet, extended release See Instructions, 1 TABS ORAL Q12HR,INSTR, # 60 tabs, 5 Refill(s), Pharmacy: [facility] [id number], 1 TABS ORAL Q12HR,INSTR Start Date: 07/27/15 Status: Ordered losartan 100 mg oral tablet 100 mg 1 tabs, Oral, Daily, # 30 tabs, 5 Refill(s), [facility] [address], 1 tabs Oral Daily Start Date: 07/15/15 Status: Ordered Multivitamins oral tablet 1 tabs, Oral, Daily Start Date: 04/30/14 Status: Ordered naproxen 500 mg oral tablet See Instructions, 1 TABS ORAL BID, # 60 tabs, [id number], 1 TABS ORAL BID Start Date: 09/18/15 [...] vaccine live 04/06/09 1Location History: given at [facility] [place] Procedures Procedure Date Related Diagnosis Body Site Colonoscopic polypectomy1 11/23/15 Hysterectomy 1986 Adenoidectomy Carpal tunnel release - B/L Cataract extraction Dilation and curettage Tonsillectomy 1April 2015 colonoscopy tubular adenoma 1, sigmoid diverticulosis, repeat in 5 years Social History Social History Type Response Smoking Status Former smoker; Type: Cigarettes1 1Quit in 1990 Assessment and Plan Extracted from: Title: NO CHARGE visit Author: Mari Neri DO Date: 03/03/16 Assessment/Plan Arm skin lesion, left Resolved at this time so we will no charge this visit as no procedure is needed. Ordered: Office Visit No Charge Benign essential hypertension will have pt recheck BP at home and if still elevated will take an extra amlodipine. she will keep track of her bp for the next few days and call us if still elevated.
--- OUTSIDE RECORDS SUMMARY | 2016-12-17 03:21 | XMS REPORT | Referral Summary ---
Author Author [facility], [facility] Medicine Organization [facility] Address Unknown Phone Unavailable Care Team Providers Care Pbx Mechanic Name Role Phone Gino Neri Primary Care Physician [phone] Encounter [facility] Date(s): 07/27/15 - 07/27/15 [facility] [address] [place] [address] Discharge Diagnosis: Acute pain of left hip Discharge Diagnosis: Elevated serum GGT level Discharge Disposition: 01-Home or Self Care Attending Physician: Mari Neri DO Admitting Physician: Mari Neri DO Vital Signs Most recent to 1 oldest [Reference Range]: Temperature Tympanic 36.7 degC [36.6-38.1 degC] (07/27/15 10:19 AM) Peripheral Pulse 61 bpm Rate [60-100 bpm] (07/27/15 10:19 AM) Respiratory Rate 17 br/min [14-20 br/min] (07/27/15 10:19 AM) Blood Pressure 128/78 mmHg [90-140/60-90 mmHg] (07/27/15 10:19 AM) Problem List Condition Effective Dates Status Health [...] EVERY DAY., # 90 unknown unit, eRx: [facility] [id number], TAKE 1 TABLET BY MOUTH EVERY DAY. Start Date: 06/18/15 Status: Ordered aspirin 81 mg, Oral, Daily, 0 Refill(s) Start Date: 07/27/15 Status: Ordered atenolol 100 mg oral tablet See Instructions, 1 TABS ORAL BID,INSTR:PATIENT TAKES 250MG DAILY, # 60 tabs, 2 Refill(s), eRx: [facility] [id number], 1 TABS ORAL BID,INSTR:PATIENT TAKES 250MG DAILY Start Date: 07/15/15 Status: Ordered atenolol 50 mg oral tablet See Instructions, 1 TABS ORAL DAILY, # 30 tabs, eRx: [facility] [id number] , 1 TABS ORAL DAILY Start Date: 07/15/15 Status: Ordered Calcium 600+D 600 mg-200 intl units oral tablet tabs, Oral, BID, 0 Refill(s) Start Date: 04/30/14 Status: Ordered hyoscyamine 0.375 mg oral tablet, extended release See Instructions, 1 TABS ORAL Q12HR,INSTR, # 60 tabs, 5 Refill(s), Pharmacy: [facility] [id number], 1 TABS ORAL Q12HR,INSTR Start Date: 07/27/15 Status: Ordered losartan 100 mg oral tablet 100 mg 1 tabs, Oral, Daily, # 30 tabs, 5 Refill(s), Pharmacy: [facility] [id number], 1 tabs Oral Daily Start Date: 07/15/15 Status: Ordered Multivitamins oral tablet 1 tabs, Oral, Daily Start Date: 04/30/14 Status: Ordered naproxen 500 mg oral tablet 500 mg 1 tabs, Oral, BID, # 60 tabs, 0 Refill(s), Pharmacy: [facility] [id number], 1 tabs Oral BID Start Date: 07/27/15 Status: Ordered primidone 50 mg oral tablet [...] vaccine live 04/06/09 1Location History: given at [facility] Procedures Procedure Date Related Diagnosis Body Site Hysterectomy 1986 Adenoidectomy Carpal tunnel release - B/L Cataract extraction Dilation and curettage Tonsillectomy Social History Social History Type Response Smoking Status Former smoker; Type: Cigarettes1 1Quit in 1990 Assessment and Plan Extracted from: Title: Office Visit Note Author: Mari Neri DO Date: 07/27/15 Assessment/Plan Acute pain of left hip We'll give her naproxen but advised patient she can only take this for 2 weeks and then she must stop according to her heart history. We did discuss tramadol as needed she would call us for a prescription for this. Ordered: Office Visit Level 4 Est 18376 Elevated serum GGT level After thoroughly going over the differential diagnosis, patient elected to have ultrasound today instead of waiting for repeat lab work in 3 months. If ultrasound is normal we'll proceed with repeat lab work in 3 months. Ordered: Office Visit Level 4 Est 47355 US Abdomen Complete Orders: hyoscyamine, See Instructions, 1 TABS ORAL Q12HR,INSTR, # 60 tabs, 5 Refill(s), Pharmacy: [facility] [id number], 1 TABS ORAL Q12HR,INSTR naproxen, 500 mg 1 tabs, Oral, BID, # 60 tabs, 0 Refill(s), Pharmacy: [facility] [id number], 1 tabs Oral BID
--- OUTSIDE RECORDS SUMMARY | 2016-12-17 03:22 | XMS REPORT | Referral Summary ---
Author Author [facility] Organization [facility] Address Unknown Phone Unavailable Care Team Providers Care Communication Clerk Name Role Phone Gino Neri Primary Care Physician [phone] Encounter [facility] Date(s): 12/08/14 - 12/08/14 [facility] [address] [place] [address] Discharge Diagnosis: Need for vaccination with 13-polyvalent pneumococcal conjugate vaccine Discharge Diagnosis: Irritable bowel syndrome Discharge Diagnosis: Arthritis Discharge Diagnosis: Benign essential hypertension Discharge Disposition: 01-Home or Self Care Attending Physician: Dorothea Johnson MD Admitting Physician: Dorothea Johnson MD Vital Signs Most recent to 1 oldest [Reference Range]: Temperature Tympanic 36.9 degC [36.6-38.1 degC] (12/08/14 10:45 AM) Peripheral Pulse 60 bpm Rate [60-100 bpm] (12/08/14 10:45 AM) Respiratory Rate 16 br/min [14-20 br/min] (12/08/14 10:45 AM) Systolic Blood 152 mmHg Pressure [90-140 *HI* mmHg] (12/08/14 10:45 AM) Problem List Condition Effective Dates Status [...] 90 unknown unit, 2 Refill (s), eRx: [facility] [id number], TAKE 1 TABLET BY MOUTH EVERY DAY. Start Date: 07/07/14 Status: Ordered atenolol 100 mg oral tablet See Instructions, 1 TABS ORAL DAILY,INSTR:*LAST REFILL UNTIL SEEN*; YOU WILL NEED TO SET UP APPOINTMENT WITH A NEW DOC. OR DR. NERI, # 30 tabs, eRx: [facility] [id number], 1 TABS ORAL DAILY,INSTR:*LAST REFILL UNTIL SEEN*; YOU WILL NEED TO SET UP... Start Date: 05/21/15 Status: Ordered Calcium 600+D 600 mg-200 intl units oral tablet tabs, Oral, BID, 0 Refill(s) Start Date: 04/30/14 Status: Ordered clopidogrel 75 mg oral tablet See Instructions, TAKE 1 TABLET BY MOUTH EVERY DAY EXCEPT SUNDAYS NEEDED, # 30 tabs, 0 Refill(s), [place], Pharmacy: [facility], * last refill utnil seen*; you will [...] OR DR. NERI, # 60 tabs, eRx: [facility] [id number], 1 TABS ORAL Q12HR,INSTR:*LAST SCRIPT UNTIL SEEN*; YOU WILL NEED TO MAKE APPOIN... Start Date: 06/02/15 Status: Ordered losartan 100 mg oral tablet 100 mg 1 tabs, Oral, Daily, *last refill until seen* you will need to set up appointment with a new doc. or Dr. Neri, # 60 tabs, 0 Refill(s), Pharmacy: [facility] [id number], 1 tabs Oral Daily,Instr:*last refill until seen*; [...] vaccine live 04/06/09 1Location History: given at [facility] Procedures Procedure Date Related Diagnosis Body Site Hysterectomy 1986 Adenoidectomy Carpal tunnel release - B/L Cataract extraction Dilation and curettage Tonsillectomy Social History Social History Type Response Smoking Status Former smoker; Type: Cigarettes1 1Quit in 1990 Assessment and Plan Extracted from: Title: Ambulatory Patient Education Author: Dorothea Johnson MD Date: 12/09/14 Family Medicine Arthritis, Nonspecific Arthritis is inflammation of a joint. This usually means pain, redness, warmth or swelling are present. One or more joints may be involved. There are a number of types of arthritis. Your caregiver may not be able to tell what type of arthritis you have right away. CAUSES The most common cause of arthritis is the wear and tear on the joint ( osteoarthritis ). This causes damage to the cartilage, which can break down over time. The knees, hips, back and neck are most often affected by this type of arthritis. Other types of arthritis and common causes of joint pain include: Sprains and other injuries near the joint. Sometimes minor sprains and injuries cause pain and swelling that develop hours later. Rheumatoid arthritis. This affects hands, feet and knees. It usually affects both sides of your body at the same time. It is often associated with chronic ailments, fever, weight loss and general weakness. Crystal arthritis. Gout and pseudo gout can cause occasional acute severe pain, redness and swelling in the foot, ankle, or knee. Infectious arthritis. Bacteria can get into a joint through a break in overlying skin. This can cause infection of the joint. Bacteria and viruses can also spread through the blood and affect your joints. Drug, infectious and allergy reactions. Sometimes joints can become mildly painful and slightly swollen with these types of illnesses. SYMPTOMS Pain is the main symptom. Your joint or joints can also be red, swollen and warm or hot to the touch. You may have a fever with certain types of arthritis, or even feel overall ill. The joint with arthritis will hurt with movement. Stiffness is present with some types of arthritis. DIAGNOSIS Your caregiver will suspect arthritis based on your description of your symptoms and on your exam. Testing may be needed to find the type of arthritis: Blood and sometimes urine tests. X-ray tests and sometimes CT or MRI scans. Removal of fluid from the joint (arthrocentesis ) is done to check for bacteria, crystals or other causes. Your caregiver (or a specialist) will numb the area over the joint with a local anesthetic, and use a needle to remove joint fluid for examination. This procedure is only minimally uncomfortable. Even with these tests, your caregiver may not be able to tell what kind of arthritis you have. Consultation with a specialist (bottle line worker ) may be helpful. TREATMENT Your caregiver will discuss with you treatment specific to your type of arthritis. If the specific type cannot be determined, then the following general recommendations may apply. Treatment of severe joint pain includes: Rest. Elevation. Anti-inflammatory medication (for example, ibuprofen) may be prescribed. Avoiding activities that cause increased pain. Only take bjzu-itb-ttsosnu or prescription medicines for pain and discomfort as recommended by your caregiver. Cold packs over an inflamed joint may be used for 10 to 15 minutes every hour. Hot packs sometimes feel better, but do not use overnight. Do not use hot packs if you are diabetic without your caregiver's permission. A cortisone shot into arthritic joints may help reduce pain and swelling. Any acute arthritis that gets worse over the next 1 to 2 days needs to be looked at to be sure there is no joint infection. Long-term arthritis treatment involves modifying activities and lifestyle to reduce joint stress jarring. This can include weight loss. Also, exercise is needed to nourish the joint cartilage and remove waste. This helps keep the muscles around the joint strong. HOME CARE INSTRUCTIONS Do not take aspirin to relieve pain if gout is suspected. This elevates uric acid levels. Only take qzmp-nir-aarhjff or prescription medicines for pain, discomfort or fever as directed by your caregiver. Rest the joint as much as possible. If your joint is swollen, keep it elevated. Use crutches if the painful joint is in your leg. Drinking plenty of fluids may help for certain types of arthritis. Follow your caregiver's dietary instructions. Try low-impact exercise such as: Swimming. Water aerobics. Biking. Walking. Morning stiffness is often relieved by a warm shower. Put your joints through regular oyzgo-zh-penaay. SEEK MEDICAL CARE IF: You do not feel better in 24 hours or are getting worse. You have side effects to medications, or are not getting better with treatment. SEEK IMMEDIATE MEDICAL CARE IF: You have a fever. You develop severe joint pain, swelling or redness. Many joints are involved and become painful and swollen. There is severe back pain and/or leg weakness. You have loss of bowel or bladder control. Document Released: 08/31/2005 Document Revised: 10/15/2012 Document Reviewed: [facility] Patient Information 2014 [employer]. No follow up information was provided. Extracted from: Title: Office Visit Note Author: Dorothea Johnson MD Date: 12/09/14 Assessment/Plan Arthritis Benign essential hypertension Irritable bowel syndrome Need for vaccination with 13-polyvalent pneumococcal conjugate vaccine
--- OUTSIDE RECORDS SUMMARY | 2016-12-17 03:22 | XMS REPORT | Referral Summary ---
Author Author [facility] Organization [facility] Address Unknown Phone Unavailable Care Team Providers Care Hansard Reporter Name Role Phone Gino Neri Primary Care Physician [phone] Encounter [facility] Date(s): 05/29/15 - 05/29/15 [facility], [address] [place] [address] Discharge Disposition: 01-Home or Self Care Attending [...] Daily, # 90 tabs, 1 Refill(s), Pharmacy: [facility] [id number], 1 tabs Oral Daily Start Date: 09/18/15 Status: Ordered aspirin 81 mg, Oral, Daily, 0 Refill(s) Start Date: 07/27/15 Status: Ordered atenolol 100 mg oral tablet See Instructions, 1 TABS ORAL BID,INSTR:PATIENT TAKES 250MG DAILY, # 60 tabs, 1 Refill(s), eRx: [facility] [id number], 1 TABS ORAL BID,INSTR:PATIENT TAKES 250MG DAILY Start Date: 10/19/15 Status: Ordered Calcium 600+D 600 mg-200 intl units oral tablet tabs, Oral, BID, 0 Refill(s) Start Date: 04/30/14 Status: Ordered hyoscyamine 0.375 mg oral tablet, extended release See Instructions, 1 TABS ORAL Q12HR,INSTR, # 60 tabs, 5 Refill(s), Pharmacy: [facility] [id number], 1 TABS ORAL Q12HR,INSTR Start Date: 07/27/15 Status: Ordered losartan 100 mg oral tablet 100 mg 1 tabs, Oral, Daily, # 30 tabs, 5 Refill(s), Pharmacy: [facility] [id number], 1 tabs Oral Daily Start Date: 07/15/15 Status: Ordered Multivitamins oral tablet 1 tabs, Oral, Daily Start Date: 04/30/14 Status: Ordered naproxen 500 mg oral tablet See Instructions, 1 TABS ORAL BID, # 60 tabs, eRx: [facility] [address], 1 TABS ORAL BID Start Date: 09/18/15 [...] vaccine live 04/06/09 1Location History: given at [facility] [place] Procedures Procedure Date Related Diagnosis Body Site Colonoscopic polypectomy1 11/23/15 Colonoscopy2 03/24/05 Hysterectomy 1987 Adenoidectomy Carpal tunnel release - B/L Cataract extraction Dilation and curettage Tonsillectomy 1April 2015 colonoscopy tubular adenoma 1, sigmoid diverticulosis, repeat in 5 years 2rectal polyp-hyperplastic polyp- no adenomatous or malignant neoplasm Social History Social History Type Response Smoking Status Former smoker; Type: Cigarettes1 1Quit in 1990 Assessment and Plan No data available for this section
--- OUTSIDE RECORDS SUMMARY | 2016-12-17 03:22 | XMS REPORT | Continuity of Care Document ---
Author Author Dorothea Johnson MD Organization [facility] Address [address] [place] [address] Hallie Hammonds [place] [address] Phone Care Team Providers Care Film Developer Name Role Phone Dorothea Johnson PP Unavailable Payers Payer name Insurance type Covered constitution party ID Authorization(s) Unknown Problems Condition Effective Dates (start - stop) Clinical Status Hypertension, Benign - *Chronic Irritable Colon - *Chronic Abnormal involuntary movements - *Chronic Irritable Colon - *Chronic IBS (irritable bowel syndrome) - *Chronic PURE HYPERCHOLESTEROLEM - 311 - DEPRESSIVE DISORDER NEC - BENIGN HYPERTENSION - CRBL 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 - Generalized muscular abdominal pain - *Acute Unspecified disorder of skin and subcutaneous tiss - *Acute Hypertension, Benign - *Chronic Other and unspecified hyperlipidemia - *Chronic Irritable Colon - *Chronic NEED FOR PROPHYLACTIC VACCINATION WITH COMBINED [id number] ( DTP) (DTAP) VACCINE - Need for unspecified prophylactic measure - *Chronic Depression - *Chronic Influenza Vaccine - Irritable Colon - *Chronic Hypertension, Benign - *Chronic Tremor - *Chronic Hypertension, benign - *Chronic Depression - *Chronic Irritable bowel syndrome - *Chronic Skin lesion - *Acute Depression - *Chronic Family History Family Member Diagnosis Age At Onset Status Father (Unknown) Diabetes Yes Father (Unknown) heart disease Yes Son (Unknown) CVA (Stroke) Yes Father () CVA (Stroke) Yes Social History Social History Element Description Quantity alcohol hard liquor 3 drinks Allergies, Adverse Reactions, Alerts Substance Reaction Severity Status LISINOPRIL Unknown Medications Medication Instructions Dosage Effective Dates (start - stop) Status primidone 50 mg tablet TAKES 1 TAB. 5 X'S QD - Active multivitamin tablet take 1 Tablet by Oral route every day 0 - Active Keppra 500 mg tablet TAKES 1/2 TABLET QD - Active Plavix 75 mg tablet TAKES 1 QD EXCEPT ON Sundays - Active Calcium 600 + D(3) 600 mg calcium-200 unit capsule take 1 by Oral route 2 times every 0 - Active hyoscyamine ER 0.125 mg & 0.25 mg (0.375 mg) tablet,extended release TAKES 1 QD - Active hyoscyamine sulfate 0.125 mg tablet take 1 tablet (0.125MG) by oral route every 4 hours as needed 0.125 MG - No Longer Active Calcio Alberto 500 mg tablet take 1 Tablet by Oral route every day 0 - No Longer Active atenolol 100 mg tablet TAKE ONE TAB BY MOUTH BID - Active amlodipine 10 mg tablet Take 1 tablet by mouth every day. - Active atenolol 50 mg tablet TAKE ONE TABLET MIDDAY BY MOUTH. - Active losartan 100 mg tablet Take 1 tablet by mouth every day. - Active Immunizations Vaccine Date Status Comments Tdap (Boostrix r) completed Fluzone HD 0.5 completed Flu (split) (3 yrs or older) completed Td (adult) completed - Completed reason: source unspecified pneumo (2 yrs or older) (PPV23) completed - Completed reason: source unspecified Zoster completed - Completed reason: source unspecified hep B (ped/adol, 3 dose) completed - Completed reason: source unspecified hep B (ped/adol, 3 dose) completed - Completed reason: source unspecified hep B (ped/adol, 3 dose) completed - Completed reason: source unspecified Results Test Name Date and Time Measure Units Reference Range Abnormal Flag Comments Unknown Vital Signs Date / Time: Height Weight Pulse Rate Blood Pressure Temperature /13:10:00 64.25 in 161.60 lbs 64 /min 128/72 mm[Hg] 98.2 F Procedures Procedure Date Unknown Encounters Encounter Location Date Patient Visit [facility] Patient Visit [facility] Patient Visit [facility] Patient Visit [facility] Patient Visit [facility] Patient Visit [facility] Patient Visit [facility] Patient Visit Conversion Patient Visit [facility] Patient Visit [facility] Patient Visit [facility] Patient Visit [facility] Patient Visit [facility] Patient Visit [facility] Patient Visit [facility] Advance Directives Directive Effective Date Unknown
--- OUTSIDE RECORDS SUMMARY | 2016-12-17 03:22 | XMS REPORT | Referral Summary ---
Author Author [facility] Organization [facility] Address Unknown Phone Unavailable Care Team Providers Care Factory Expert Name Role Phone Gino Neri Primary Care Physician [phone] Encounter Date(s): 05/24/16 - 05/24/16 [facility], Family [address] [place] [id number] Discharge Disposition: 01-Home or Self Care Attending Physician: Damian Winslow MD Admitting Physician: Damian Winslow MD Vital Signs No data available for this [...] Daily, # 90 tabs, 1 Refill(s), Pharmacy: [facility] [id number], 1 tabs Oral Daily Start Date: 09/18/15 Status: Ordered amLODIPine 10 mg oral tablet See Instructions, TAKE 1 TABLET BY MOUTH DAILY, # 90 tabs, eRx: [facility] [id number], TAKE 1 TABLET BY MOUTH DAILY Start Date: 03/14/16 Status: Ordered aspirin 81 mg, Oral, Daily, 0 Refill(s) Start Date: 07/27/15 Status: Ordered atenolol 50 mg oral tablet See Instructions, TAKE 1 TABLET BY MOUTH DAILY ALONG WITH 100MG TABLET TO TOTAL 250MG DAILY, # 30 tabs, eRx: [facility] [id number], TAKE 1 TABLET BY MOUTH DAILY ALONG WITH 100MG TABLET TO TOTAL 250MG DAILY Start Date: 05/24/16 Status: Ordered Calcium 600+D 600 mg-200 intl units oral tablet tabs, Oral, BID, 0 Refill(s) Start Date: 04/30/14 Status: Ordered hyoscyamine 0.375 mg oral tablet, extended release See Instructions, 1 TABS ORAL Q12HR,INSTR, # 60 tabs, 5 Refill(s), Pharmacy: [facility] [id number], 1 TABS ORAL Q12HR,INSTR Start Date: 07/27/15 Status: Ordered losartan 100 mg oral tablet See Instructions, TAKE 1 TABLET BY MOUTH EVERY DAY, # 30 tabs, 3 Refill(s), eRx : [facility] [id number], TAKE 1 TABLET BY MOUTH EVERY DAY Start Date: 04/05/16 Status: Ordered Multivitamins oral tablet 1 tabs, Oral, Daily Start Date: 04/30/14 Status: Ordered naproxen 500 mg oral tablet See Instructions, 1 TABS ORAL BID, # 60 tabs, eRx: [facility] [id number], 1 TABS ORAL BID Start Date: 09/18/15 Status: Ordered primidone 50 mg oral tablet 2 tabs, Oral, TID Start Date: 04/30/14 Status: Ordered rOPINIRole 0.5 mg oral tablet 0.5 mg 1 tabs, Oral, BID, 0 Refill(s) Start Date: 02/16/16 Status: Ordered tolterodine 2 mg oral capsule, extended release See Instructions, TAKE 1 CAPSULE BY MOUTH DAILY, # 30 caps, 3 Refill(s), eRx: [facility] [id number], TAKE 1 CAPSULE BY MOUTH DAILY Start Date: 03/29/16 Status: Ordered Results No data available for this section Immunizations Vaccine Date Refusal Reason tetanus/diphth/pertuss (Tdap) adult/adol1 09/02/14 tetanus/diphth/pertuss (Tdap) adult/adol 12/17/12 hepatitis B pediatric vaccine 11/26/07 hepatitis B pediatric vaccine 07/05/07 hepatitis B pediatric vaccine 05/25/07 influenza virus vaccine, inactivated 05/24/16 influenza virus vaccine, inactivated 05/29/15 influenza virus vaccine, live 04/23/13 influenza virus vaccine, live 05/25/12 pneumococcal 13-valent conjugate vaccine 12/08/14 pneumococcal 23-polyvalent vaccine 05/25/07 tetanus-diphth toxoids (Td) adult/adol 05/08/02 zoster vaccine live 04/06/09 1Location History: given at [facility] [place] Procedures Procedure Date Related Diagnosis Body Site [...]
--- OUTSIDE RECORDS SUMMARY | 2016-12-17 03:22 | XMS REPORT | Referral Summary ---
Author Author [facility] Organization [facility] Address Unknown Phone Unavailable Care Team Providers Care Rubber Stamp Maker Name Role Phone Gino Neri Primary Care Physician [phone] Encounter VC Date(s): 12/08/14 - 12/08/14 [facility] [address] [place] [id number] Discharge Diagnosis: Need for vaccination with [...] 90 unknown unit, 2 Refill (s), eRx: [facility] [id number], TAKE 1 TABLET BY MOUTH EVERY DAY. Start Date: 07/07/14 Status: Ordered amLODIPine 10 mg oral tablet See Instructions, TAKE 1 TABLET BY MOUTH EVERY DAY., # 90 unknown unit, eRx: [facility] [id number], TAKE 1 TABLET BY MOUTH EVERY DAY. Start Date: 06/18/15 Status: Ordered atenolol 100 mg oral tablet See Instructions, 1 TABS ORAL BID,INSTR:PATIENT TAKES 250MG DAILY, # 60 tabs, eRx: [facility] [id number], 1 TABS ORAL BID,INSTR:PATIENT TAKES 250MG DAILY Start Date: 06/18/15 Status: Ordered Calcium 600+D 600 mg-200 intl units oral tablet tabs, Oral, BID, 0 Refill(s) Start Date: 04/30/14 Status: Ordered clopidogrel 75 mg oral tablet See Instructions, TAKE 1 TABLET BY MOUTH EVERY DAY EXCEPT SUNDAYS NEEDED, # 30 tabs, [place], eRx: [facility] [id number], TAKE 1 TABLET BY MOUTH EVERY DAY EXCEPT SUNDAYS NEEDED Start Date: 06/18/15 Status: Ordered Colace 100 mg oral capsule 1 caps, Oral, BID, 0 Refill(s) Start Date: 09/05/14 Status: Ordered hyoscyamine 0.375 mg oral tablet, extended release See Instructions, 1 TABS ORAL Q12HR,INSTR:*LAST SCRIPT UNTIL SEEN*; YOU WILL NEED TO MAKE APPOINTMENT WITH NEW DOC. OR DR. NERI, # 60 tabs, eRx: [facility] [id number], 1 TABS ORAL Q12HR,INSTR:*LAST SCRIPT UNTIL SEEN*; YOU WILL NEED TO MAKE APPOIN... Start Date: 06/02/15 Status: Ordered losartan 100 mg oral tablet 100 mg 1 tabs, Oral, Daily, NEEDS TO SET UP APPOINTMENT, # 30 tabs, 0 Refill(s) , Pharmacy: [facility] [id number], 1 tabs Oral Daily,Instr:NEEDS TO SET UP [...] vaccine live 04/06/09 1Location History: given at [facility] [place] Procedures Procedure Date Related [...] arthritis you have. Consultation with a specialist (synthetic staple extruder ) may be helpful. TREATMENT Your caregiver will discuss with you treatment specific to your type of arthritis. If the specific type cannot be determined, then the following general recommendations may apply. Treatment of severe joint pain includes: Rest. Elevation. Anti-inflammatory medication (for example, ibuprofen) may be prescribed. Avoiding activities that cause increased pain. Only take dfuy-giu-siztphu or prescription medicines for pain and discomfort [...] This elevates uric acid levels. Only take gipk-itt-qcdyxej or prescription medicines for pain, discomfort or [...] warm shower. Put your joints through regular hxstv-jw-uhkdpa. SEEK MEDICAL CARE IF: You do not [...] Released: 08/31/2005 Document Revised: 10/15/2012 Document Reviewed: [facility] Patient Information [address] [employer] [facility]. No follow up information was provided. Extracted from: Title: Office Visit Note Author: Dorothea Johnson MD Date: 12/09/14 Assessment/Plan Arthritis Benign essential hypertension Irritable bowel syndrome Need for vaccination with 13-polyvalent pneumococcal conjugate vaccine
--- OUTSIDE RECORDS SUMMARY | 2016-12-17 03:22 | XMS REPORT | Continuity of Care Document ---
Author Author [facility] Organization [facility] Address Unknown Phone Unavailable Support Name Relationship Address Phone VICKY CANCINO DO Caregiver Unknown Unavailable VENKAT PEREZ MD Caregiver Unknown Unavailable MARIELLE AMAYA Next Of Kin [address] [phone] Insurance Providers Guarantor Karthik Amaya Address [address] [address] Email [email or web address] Payer Medicareadvantra o Policy Number [id number] Subscriber's Name Karthik Amaya Relationship 18 Self Group Number [id number] Advance Directives Directive Response Recorded Date/Time Ordered Resuscitation Status Full Code, unverified 01/18/16 1:27pm Resuscitation Documents on File Yes 01/20/16 12:30pm DPOA for Healthcare Only Yes 01/20/16 12:30pm Problems Active Problems Medical Problem Onset Date Status Ankle pain, right Unknown Acute Ankle pain, right Unknown Acute Bimalleolar ankle fracture Unknown Acute Contusion of face Unknown Acute Fall on same level Unknown Acute History of CVA (cerebrovascular accident) Unknown Chronic Hypertension Unknown Chronic Open fracture ankle, bimalleolar Unknown Acute Open fracture ankle, bimalleolar Unknown Acute Open fracture ankle, bimalleolar Unknown Acute Medications Current Home Medications Medication Dose Units Route Directions Days Qty Instructions Start Date Amlodipine Besylate 10 Mg Tablet 10 Mg Oral Daily 09/02/14 Aspirin (Aspir 81) 81 Mg Tablet. 1 Tab Oral Daily 11/20/15 Atenolol 100 Mg Tablet 100 Mg Oral Twice A Day 09/02/14 Calcium Carbonate/Vitamin D3 (Calcium 600 + D Tablet) 1 Tab Tablet 1 Tab Oral Twice A Day 08/22/09 Hyoscyamine Sulfate 0.375 Mg Tab.er.12h 1 Tab Oral Daily 09/02/14 Losartan Potassium 100 Mg Tablet 100 Mg Oral Daily 09/25/14 Multivitamins W-Minerals (Multiple Vitamin) 1 Tab Tablet 1 Tab Oral Daily 08/22/09 Primidone 50 Mg Tablet 100 Tab Oral Three Times A Day 09/02/14 Tolterodine Tartrate (Tolterodine Tartrate Er) 2 Mg Cap.er.24h 1 Cap Oral Daily 90 01/18/16 Past Home Medications Medication Directions Ordered Status Acetaminophen (Tylenol) 325 Mg Tablet, 650 Mg Oral Every 4 Hours as needed for Pain 09/24/14 Discontinued Aspirin 325 Mg Tablet, 325 Mg Oral Twice A Day 09/03/14 Discontinued Clopidogrel Bisulfate (Plavix) 75 Mg Tablet, Da 09/02/14 Discontinued Hydrocodone/Acetaminophen (Hydrocodon-Acetaminoph 7.5-325) 1 Tab Tablet, 1-2 Tab Oral Every 4 Hours as needed for Pain 09/03/14 Discontinued Social History Social History Problem Response Recorded Date/Time Onset Date Status Chewing Tobacco Status No 01/18/2016 4:04pm Not Applicable Not Applicable Hx Substance Use No 01/18/2016 4:04pm Not Applicable Not Applicable Hx Alcohol Use Y 3-4 A DAY-SCOTCH 01/18/2016 4:04pm Not Applicable Not Applicable Has the pt used tobacco in the last 12 months No 01/18/2016 4:04pm Not Applicable Not Applicable Tobacco Usage none 09/02/2014 9:52am Not Applicable Not Applicable Query Response Start Date Stop Date Smoking Status Former smoker Hospital Discharge Instructions No hospital discharge instructions. Plan of Care Discharge Date 01/20/16 3:15pm Prescriptions See Medication Section Functional Status Query Response Date Recorded Ability to complete ADL's impeded by Change in Behavior January 20, 2016 12:30pm Allergies, Adverse Reactions, Alerts Allergen Type Severity Reaction Status Last Updated Lisinopril Allergy Severe uncontrolled coughing Active 06/29/15 Immunizations Query Response on File Recorded Date/Time Hx Influenza Vaccination Y MAY 2015 01/18/16 4:04pm Hx Pneumococcal Vaccination Y 200801/18/16 4:04pm Hx Influenza Vaccination Y MAY 2015 01/18/16 4:04pm Hx Tetanus Toxoid Vaccination Y unknown 09/02/14 2:23am Vital Signs Acute Vital Signs Vital Response Date/Time Temperature (Fahrenheit) 98.0 deg F (96.8 - 99.1) 01/20/2016 2:30pm Temperature (Calculated Celsius) 36.77806 degrees C (36.0 - 37.3) 01/20/2016 2:30pm Temperature Source Temporal 01/20/2016 2:30pm Pulse Rate (adult) 67 bpm (60 - 100) 01/20/2016 3:00pm Respiratory Rate 16 breaths/min (10 - 20) 01/20/2016 3:00pm O2 Sat by Pulse Oximetry 97 % (90 - 100) 01/20/2016 3:00pm Oxygen Delivery Method Room Air 01/20/2016 3:00pm Blood Pressure 187/79 mm Hg 01/20/2016 3:00pm Blood Pressure Source Automatic Cuff 01/20/2016 3:00pm Height (Feet) 5 feet 01/20/2016 11:40am Height (Inches) 4.00 inches 01/20/2016 11:40am Weight (Kilograms) 73.900 kg 01/20/2016 11:40am Body Mass Index (BMI) 28.0 01/20/2016 11:40am Results No known relevant diagnostic tests, laboratory data and/or discharge summary. Procedures Procedure Status Date Provider(s) COLONOSCOPY AND BIOPSY Completed 11/23/15 MEERA ALLEN MD, FACS, CWS COLONOSCOPY W/LESION REMOVAL Completed 11/23/15 MEERA ALLEN MD, FACS, CWS TISSUE EXAM BY PATHOLOGIST Completed 11/23/15 [id number]"RINGERS LACTATE INFUSION, UP TO 1000 CC" Completed 11/23/15 Cataract extraction, right Completed 01/20/16 VENKAT PEREZ MD Encounters Encounter Location Arrival/Admit Date Discharge/Depart Date Attending Provider Departed [facility] 01/20/16 11:18am 01/20/16 3 :15pm VENKAT PEREZ MD Departed [facility] 11/23/15 6:16am 11/23/15 9: 59am MEERA ALLEN FACS, MD
--- OUTSIDE RECORDS SUMMARY | 2016-12-17 03:22 | XMS REPORT | Referral Summary ---
Author Author [facility] Organization [facility] Address Unknown Phone Unavailable Care Team Providers Care Steel Pourer Name Role Phone Gino Neri Primary Care Physician [phone] Encounter VC Date(s): 12/08/14 - 12/08/14 [facility] [address] [place] [address] Discharge Diagnosis: Need for vaccination with [...] 90 unknown unit, 2 Refill (s), eRx: [facility] [id number], TAKE 1 TABLET BY MOUTH EVERY DAY. Start Date: 07/07/14 Status: Ordered atenolol 100 mg oral tablet See Instructions, 1 TABS ORAL DAILY,INSTR:*LAST REFILL UNTIL SEEN*; YOU WILL NEED TO SET UP APPOINTMENT WITH A NEW DOC. OR DR. NERI, # 30 tabs, eRx: [facility] [id number], 1 TABS ORAL DAILY,INSTR:*LAST REFILL UNTIL SEEN*; YOU WILL NEED TO SET UP... Start Date: 05/21/15 Status: Ordered Calcium 600+D 600 mg-200 intl units oral tablet tabs, Oral, BID, 0 Refill(s) Start Date: 04/30/14 Status: Ordered clopidogrel 75 mg oral tablet See Instructions, TAKE 1 TABLET BY MOUTH EVERY DAY EXCEPT SUNDAYS NEEDED, # 30 tabs, 0 Refill(s), [place], Pharmacy: [facility], * last refill utnil seen*; you will [...] OR DR. NERI, # 60 tabs, eRx: [facility] [id number], 1 TABS ORAL Q12HR,INSTR:*LAST SCRIPT UNTIL SEEN*; YOU WILL NEED TO MAKE APPOIN... Start Date: 06/02/15 Status: Ordered losartan 100 mg oral tablet 100 mg 1 tabs, Oral, Daily, *last refill until seen* you will need to set up appointment with a new doc. or Dr. Neri, # 60 tabs, 0 Refill(s), Pharmacy: [facility] [id number], 1 tabs Oral Daily,Instr:*last refill until seen*; [...] vaccine live 04/06/09 1[place] History[place] [facility] [place] Procedure Date Related Diagnosis Body Site [...] arthritis you have. Consultation with a specialist (die cutter operator ) may be helpful. TREATMENT Your caregiver will discuss with you treatment specific to your type of arthritis. If the specific type cannot be determined, then the following general recommendations may apply. Treatment of severe joint pain includes: Rest. Elevation. Anti-inflammatory medication (for example, ibuprofen) may be prescribed. Avoiding activities that cause increased pain. Only take kkzv-egs-rhpgpuu or prescription medicines for pain and discomfort [...] This elevates uric acid levels. Only take mnut-pmx-vavvxrz or prescription medicines for pain, discomfort or [...] warm shower. Put your joints through regular jxpyj-st-nvtupf. SEEK MEDICAL CARE IF: You do not [...] Released: 08/31/2005 Document Revised: 10/15/2012 Document Reviewed: [facility] Patient Information 2014 [employer]. No follow up information was provided. Extracted from: Title: Office Visit Note Author: Dorothea Johnson MD Date: 12/09/14 Assessment/Plan Arthritis Benign essential hypertension Irritable bowel syndrome Need for vaccination with 13-polyvalent pneumococcal conjugate vaccine
--- OUTSIDE RECORDS SUMMARY | 2016-12-17 03:22 | XMS REPORT | Referral Summary ---
Author Author [facility] Organization [facility] Address Unknown Phone Unavailable Care Team Providers Care Ink Grinder Name Role Phone Gino Neri Primary Care Physician [phone] Encounter VC Date(s): 12/08/14 - 12/08/14 [facility] [address] [place] [email or web address] Discharge Diagnosis: Need for vaccination with 13-polyvalent [...] 90 unknown unit, 2 Refill (s), eRx: [facility] [id number], TAKE 1 TABLET BY MOUTH EVERY DAY. Start Date: 07/07/14 Status: Ordered atenolol 100 mg oral tablet See Instructions, 1 TABS ORAL DAILY,INSTR:*LAST REFILL UNTIL SEEN*; YOU WILL NEED TO SET UP APPOINTMENT WITH A NEW DOC. OR DR. NERI, # 30 tabs, eRx: [facility] [id number], 1 TABS ORAL DAILY,INSTR:*LAST REFILL UNTIL SEEN*; YOU WILL NEED TO SET UP... Start Date: 05/21/15 Status: Ordered Calcium 600+D 600 mg-200 intl units oral tablet tabs, Oral, BID, 0 Refill(s) Start Date: 04/30/14 Status: Ordered clopidogrel 75 mg oral tablet See Instructions, TAKE 1 TABLET BY MOUTH EVERY DAY EXCEPT SUNDAYS NEEDED, # 30 tabs, 0 Refill(s), [place], Pharmacy: [facility], * last refill utnil seen*; you will [...] OR DR. NERI, # 60 tabs, eRx: [facility] [id number], 1 TABS ORAL Q12HR,INSTR:*LAST SCRIPT UNTIL SEEN*; YOU WILL NEED TO MAKE APPOIN... Start Date: 06/02/15 Status: Ordered losartan 100 mg oral tablet 100 mg 1 tabs, Oral, Daily, *last refill until seen* you will need to set up appointment with a new doc. or Dr. Neri, # 60 tabs, 0 Refill(s), Pharmacy: [facility] [id number], 1 tabs Oral Daily,Instr:*last refill until seen*; [...] vaccine live 04/06/09 1[place] [facility] [place] Procedure Date Related [...] arthritis you have. Consultation with a specialist (project scheduler ) may be helpful. TREATMENT Your caregiver will discuss with you treatment specific to your type of arthritis. If the specific type cannot be determined, then the following general recommendations may apply. Treatment of severe joint pain includes: Rest. Elevation. Anti-inflammatory medication (for example, ibuprofen) may be prescribed. Avoiding activities that cause increased pain. Only take xyfp-pbo-uykptsg or prescription medicines for pain and discomfort [...] This elevates uric acid levels. Only take ihtm-snj-olcydsf or prescription medicines for pain, discomfort or [...] warm shower. Put your joints through regular lkhma-sw-fyvljl. SEEK MEDICAL CARE IF: You do not [...] Released: 08/31/2005 Document Revised: 10/15/2012 Document [facility]: [facility] Patient Information 2014 [employer]. No follow up information was provided. Extracted from: Title: Office Visit Note Author: Dorothea Johnson MD Date: 12/09/14 Assessment/Plan Arthritis Benign essential hypertension Irritable bowel syndrome Need for vaccination with 13-polyvalent pneumococcal conjugate vaccine
--- OUTSIDE RECORDS SUMMARY | 2016-12-17 03:22 | XMS REPORT | Continuity of Care Document ---
Author Author [facility] Organization [facility] Address Unknown Phone Unavailable Support Name Relationship Address Phone KANCHANCAITLYN PUENTE Caregiver [facility] [address], [place] [id number] HEATHER CAMPO MD Caregiver [address], [place] [phone] BC BETTS MD Caregiver [address] [place], [place] [phone] MARIELLE AMAYA Next Of Kin [address] [place], [place] [id number] Insurance Providers Payer Name Policy Number Subscriber Name Relationship Medicareadvantra Ppo [id number] Karthik Amaya 20 Self Advance Directives Directive Response Recorded Date/Time Ordered Resuscitation Status Full Code 09/25/14 9:56pm Resuscitation Documents on File No 09/25/14 11:37pm Chief Complaint and Reason for Visit Chief Complaint INABILITY TO CARE FOR SELF AT HOME SECONDARY TO Reason for Visit Bimalleolar ankle fracture Ankle pain, right Ankle pain, right Problems Medical Problems Problem Onset Date Status Open fracture ankle, bimalleolar Unknown Active Open fracture ankle, bimalleolar Unknown Active History of CVA (cerebrovascular accident) Unknown Active Hypertension Unknown Active Open fracture ankle, bimalleolar Unknown Active Bimalleolar ankle fracture Unknown Active Ankle pain, right Unknown Active Ankle pain, right Unknown Active Medications Medication Dose Route Sig Days/Qty Instructions Order Date Discontinued Date Status Atenolol 50 Mg PO DAILY 08/22/09 Active Calcium Carbonate/Vitamin D3 1 Tab PO TWICE A DAY 08/22/09 Active Multivitamins W-Minerals DAILY 08/22/09 Active Atenolol 100 Mg PO TWICE A DAY 09/02/14 Active Amlodipine Besylate 10 Mg PO DAILY 09/02/14 Active Clopidogrel Bisulfate DA 09/02/14 09/03/14 Discontinued Primidone 2 Tab PO THREE TIMES A DAY 09/02/14 Active Hyoscyamine Sulfate 1 Tab PO DAILY 09/02/14 Active Hydrocodone/Acetaminophen 1-2 Tab PO Q4H PRN PAIN 60 Qty 09/03/14 Discontinued Docusate Sodium 1 Cap PO TWICE A DAY 30 Qty 09/03/14 Active Aspirin 325 Mg PO TWICE A DAY 0 Qty 09/03/14 09/25/14 Discontinued Clopidogrel Bisulfate 1 Tab PO six days a week 09/23/14 Active Acetaminophen 650 Mg PO Q4H PRN PAIN 100 Qty 09/24/14 09/26/14 Discontinued Aspirin 1 Tab PO DAILY 42 Qty 09/24/14 Active Losartan Potassium 100 Mg PO DAILY 09/25/14 Active Hydrocodone/Acetaminophen 1-2 Tab PO EVERY 4-6 HOURS PRN PAIN 50 Qty Active Lorazepam 2 Mg PO EVERY 12 HOURS PRN ANXIETY/PAIN/SPASM 15 Qty Active Magnesium Hydroxide 30 Ml PO DAILY PRN CONSTIPATION 30 Days 09/25/14 Active Sennosides/Docusate Sodium 1 Tab PO TWICE A DAY 60 Qty 09/25/14 Active Social History Social History Problem Response Recorded Date/Time Hx Substance Use No 09/25/2014 7:31pm Hx Alcohol Use Y 3-4 A DAY 09/25/2014 7:31pm Has the pt used tobacco in the last 12 months No 09/25/2014 11:39pm Tobacco Usage none 09/02/2014 9:52am Query Response Start Date Stop Date Smoking Status Former smoker Hospital Discharge Instructions Instructions: Care Instructions: Reason for Hospitalization: right foot pain I was in the hospital because (patient own words): "TRIPPED ON SORE FOOT AND I WAS AFRAID THAT I MESSED SOMETHING UP" Discharge Diet: regular Discharge Activity: non weight bearing on right leg. Follow Up Appointments: [address] Betts. Call [phone] to confirm appointment is made or to arrange for the appointment. Monday10-01-14 AT 9:45 AM. Wound/Incision Care: keep the splint on and dry. Notify Physician If: fever over 101, chest pain, shortness of breath, or calf pain. Condition at time of discharge: Good Dismissal Weight: 7 lbs 8 oz Bilirubin Level: 5.8 Congenital Heart Disease Screening Result: Pass Good Plan of Care Discharge Date 09/26/14 2:45pm Disposition 03 TO [facility] NOT [facility] (S[facility]) Instructions/Education Provided [facility] Ortho Fracture Instruction Prescriptions See Medications Section Functional Status Query Response Date Recorded Physical Hygiene Self September 26, 2014 2:15pm Disabilities Visual September 26, 2014 2:15pm Devices Used Glasses Wheelchair September 26, 2014 2:15pm Dressing Assist September 26, 2014 2:15pm Ambulation Assist September 26, 2014 2:15pm Diet Self September 26, 2014 2:15pm Mental Status Alert Oriented September 26, 2014 2:15pm Disabilities Visual September 26, 2014 2:15pm Devices Used Glasses Wheelchair September 26, 2014 2:15pm Physical Hygiene Self September 26, 2014 2:15pm Dressing Assist September 26, 2014 2:15pm Ambulation Assist September 26, 2014 2:15pm Diet Self September 26, 2014 2:15pm Allergies, Adverse Reactions, Alerts Allergen Type Severity Reaction Status Last Updated Lisinopril Allergy Severe uncontrolled coughing Active 09/25/14 Immunizations Name Given Type Hx Influenza Vaccination Y 2013 Historical Hx Pneumococcal Vaccination Y 2008 Historical Hx Influenza Vaccination Y 2013 Historical Hx Tetanus Toxoid Vaccination Y unknown Historical Vital Signs Acute Vital Signs Vital Response Date/Time Temperature (Fahrenheit) 98.7 deg F (96.8 - 99.1) Temperature (Calculated Celsius) 37.97443 degrees C (36.0 - 37.3) Pulse Rate (adult) 78 bpm (60 - 100) Respiratory Rate 16 breaths/min (10 - 20) Height (Feet) 5 feet Height (Inches) 4.00 inches Height 5 ft 4 in Weight 162 lb Body Mass Index 27.0 kg/m^2 Results Test Source Date Result Interp. Ref. Range Comments Alanine Aminotransferase (ALT/SGPT) September 02, 2014 2:38am 30 U/L N 9- 52 Albumin September 02, 2014 2:38am 4.6 G/DL N 3.5-5.0 Albumin/Globulin Ratio September 02, 2014 2:38am 1.4 RATIO N 1.1-2.2 Alcohol, Quantitative September 02, 2014 2:38am 138 MG/DL - Alkaline Phosphatase September 02, 2014 2:38am 94 U/L N 38-126 Anion Gap September 25, 2014 8:59am 8 MEQ/L N 5-15 Aspartate Amino Transf (AST/SGOT) September 02, 2014 2:38am 36 U/L N 14- 36 BUN/Creatinine Ratio September 25, 2014 8:59am 12 RATIO N 6-26 Basophils # (Auto) September 23, 2014 11:19am 0.0 T/MM3 N 0-0.2 Basophils (%) (Auto) September 23, 2014 11:19am 0.4 % N 0-2 Blood Urea Nitrogen September 25, 2014 8:59am 7.0 MG/DL DN 7-17 Calcium Level September 25, 2014 8:59am 9.0 MG/DL N 8.4-10.2 Calculated Osmolality September 25, 2014 8:59am 265 MOSM/KG N 261-280 Carbon Dioxide Level September 25, 2014 8:59am 30 MEQ/L N 22-30 Chemistry Specimen Hemolysis September 25, 2014 8:59am < 15 0-25 0-25 : No Hemolysis.26-70: Slight Hemolysis - can falsely [...] Phenytoin. Recommend specimen recollection. Chloride Level September 25, 2014 8:59am 100 MEQ/L N 98-107 Creatinine September 25, 2014 8:59am 0.6 MG/DL L 0.7-1.2 EKG August 22, 2009 10:15pm Complete - Eosinophils # (Auto) September 23, 2014 11:19am 0.1 T/MM3 N 0-0.5 Eosinophils (%) (Auto) September 23, 2014 11:19am 2.8 % N 0-4 Globulin September 02, 2014 2:38am 3.3 G/DL N 2.4-3.6 Glomerular Filtration Rate Calc September 25, 2014 8:59am 98 - Glucose Level September 25, 2014 8:59am 108 MG/DL N 65-110 Hematocrit September 25, 2014 8:59am 34.8 % L 36-46 Hemoglobin September 25, 2014 8:59am 11.3 GM/DL L 12-16 Icterus Index September 25, 2014 8:59am < 2 0-7 Immature Granulocyte # (Auto) September 23, 2014 11:19am 0.00 T/MM3 N 0.00-0.03 Immature Granulocyte % (Auto) September 23, 2014 11:19am 0.0 % N 0.0-0.5 Lymphocytes # (Auto) September 23, 2014 11:19am 1.3 T/MM3 N 1-4.8 Lymphocytes (%) (Auto) September 23, 2014 11:19am 26.2 % N 23-45 Mean Corpuscular Hemoglobin September 25, 2014 8:59am 31.7 UUG N 26-34 Mean Corpuscular Hemoglobin Concent September 25, 2014 8:59am 32.5 GM/DL N 31-37 Mean Corpuscular Volume September 25, 2014 8:59am 97.8 UM3 N 80-100 Mean Platelet Volume September 25, 2014 8:59am 9.2 UM3 L 9.4-12.4 Monocytes # (Auto) September 23, 2014 11:19am 0.4 T/MM3 N 0-0.8 Monocytes (%) (Auto) September 23, 2014 11:19am 7.8 % N 0-9.0 Neutrophils # (Auto) September 23, 2014 11:19am 3.2 T/MM3 N 1.8-7.7 Neutrophils (%) (Auto) September 23, 2014 11:19am 62.8 % N 33-66 Platelet Count September 25, 2014 8:59am 176 T/MM3 N 130-400 Potassium Level September 25, 2014 8:59am 3.7 MEQ/L N 3.6-5 RDW Standard Deviation September 25, 2014 8:59am 39.8 FL N 36.9-50.2 Red Blood Count September 25, 2014 8:59am 3.56 M/MM3 L 4.00-5.20 Sodium Level September 25, 2014 8:59am 138 MEQ/L N 134-144 Total Bilirubin September 02, 2014 2:38am 0.30 MG/DL N 0.20-1.30 Total Protein September 02, 2014 2:38am 7.9 G/DL N 6.3-8.2 Turbidity September 25, 2014 8:59am < 20 0-20 Urine Bacteria September 02, 2014 4:30am None seen - Has specimen been collected/obtained? Y Urine Bilirubin September 02, 2014 4:30am Negative - Has specimen been collected/obtained? Y Urine Blood September 02, 2014 4:30am Trace-intact H - Has specimen been collected/obtained? Y Urine Collection Type September 02, 2014 4:30am Cleancatch-midstream - Has specimen been collected/obtained? Y Urine Color September 02, 2014 4:30am Yellow - Has specimen been collected/obtained? Y Urine Culture Indicated September 02, 2014 4:30am [...] - Has specimen been collected/obtained? Y Urine Specific [place] September 02, 2014 4:30am 1.015 - Has [...] H - MICROSCOPIC DONE UNSPUN. <2ML Urine pH September 02, 2014 4:30am 7.0 - Has specimen been collected/ obtained? Y White Blood Count September 25, 2014 8:59am 7.4 T/MM3 DN 4.5-11.0 Urine Culture Urine, Clean Catch-Midstream September 02, 2014 4:50am Mixed [place] Prob. Contaminants Name: KARTHIK AMAYA Unit #: [id number] : 1940 Sex: F Loc / Svc: SRG DOS: 09/25/14 Signed Report #: [id number] DIAGNOSTIC IMAGING REPORT TYPE OF EXAM: FOOT RIGHT 3 VIEWS Dictated By: KINZA BOX MD Indication: ITS.REASON: PAIN / SURGERY 09/25/2014 FOOT RIGHT 3 VIEWS Comparison: Ankle radiographs from the same date Findings: Previously internally fixed distal tibial and fibular fractures noted. Overlying casting material obscures fine bony detail. No displaced fracture seen in the foot. Limited evaluation of the toes due to obscuration. Impression: No acute osseous abnormality. . Procedures Procedure Status Date Provider(s) TREATMENT OF ANKLE FRACTURE completed 09/02/14 BC BETTS MD ROUTINE VENIPUNCTURE completed 09/02/14 CT HEAD/BRAIN W/O DYE completed 09/02/14 X-RAY EXAM OF ANKLE completed 09/02/14 X-RAY EXAM OF ANKLE completed 09/02/14 FLUOROSCOPE EXAMINATION completed 09/02/14 COMPREHEN METABOLIC PANEL completed 09/02/14 URINALYSIS AUTO W/SCOPE completed 09/02/14 COMPLETE CBC W/AUTO DIFF WBC completed 09/02/14 URINE CULTURE/COLONY COUNT completed 09/02/14 IMMUNIZATION ADMIN completed 09/02/14 TDAP VACCINE 7 YRS/> IM completed 09/02/14 ELECTROCARDIOGRAM TRACING completed 09/02/14 PT EVALUATION completed 09/02/14 OT EVALUATION completed 09/02/14 GAIT TRAINING THERAPY completed 09/02/14 GAIT TRAINING THERAPY completed 09/02/14 THERAPEUTIC ACTIVITIES completed 09/02/14 THERAPEUTIC ACTIVITIES completed 09/02/14 SELF CARE MNGMENT TRAINING completed 09/02/14 EMERGENCY DEPT VISIT completed 09/02/14 512813"16 SQ. IN. OR LESS, WITHOUT ADHESIVE BORDER, EACH NORA completed [id number] ITEM OR SERVICE completed 09/02/14 [id number]-RXVJCTU ITEM OR SERVICE completed 09/02/14 [id number]-NCNBUBB ITEM OR SERVICE completed 09/02/14 [id number]-OGDCHVK ITEM OR SERVICE completed 09/02/14 [id number]-ARLNZQE ITEM OR SERVICE completed 09/02/14 130104RPK-SOOIAKS ITEM OR SERVICE completed 09/02/14 [id number]-HQCBZML ITEM OR SERVICE completed 09/02/14 [id number]-AMYEFWF ITEM OR SERVICE completed 09/02/14 [id number]-WFKCZPG ITEM OR SERVICE completed 09/02/14 [id number]-WNALCDB ITEM OR SERVICE completed 09/02/14 [id number]-UIINJDJ ITEM OR SERVICE completed 09/02/14 [id number]-JWEJBKJ ITEM OR SERVICE completed 09/02/14 105226SFT-MSORQWF ITEM OR SERVICE completed 09/02/14 [id number]-YAJRHJQ ITEM OR SERVICE completed 09/02/14 144112RDL-CVHVVBC ITEM OR SERVICE completed 09/02/14 [id number]-YHHBQUR ITEM OR SERVICE completed 09/02/14 631003"INJECTION, PANTOPRAZOLE SODIUM, PER VIAL" completed 09/02/14674400"INJECTION, PANTOPRAZOLE SODIUM, PER VIAL" completed 09/02/14490022"HOSPITAL OBSERVATION SERVICE, PER HOUR" completed 09/02/14093464"HOSPITAL OBSERVATION SERVICE, PER HOUR" completed 09/02/14 ALCOHOL, ETHYL completed 09/02/14 PT MOBILITY CURRENT STATUS completed 09/02/14 PT MOBILITY GOAL STATUS completed 09/02/14 PT MOBILITY GOAL STATUS completed 09/02/14 completed 09/02/14 OT SELF CARE CURRENT STATUS completed 09/02/14 OT SELF CARE GOAL STATUS completed 09/02/14898424"INJECTION, CEFAZOLIN SODIUM, 500 MG" completed 09/02/14482099"INJECTION, CEFAZOLIN SODIUM, 500 MG" completed 09/02/14213937"INJECTION, CEFAZOLIN SODIUM, 500 MG" completed 09/02/14740342"INJECTION, CEFAZOLIN SODIUM, 500 MG" completed 09/02/14063482"INJECTION, CEFAZOLIN SODIUM, 500 MG" completed 09/02/14343038"INJECTION, CEFAZOLIN SODIUM, 500 MG" completed 09/02/14377169"INJECTION, HYDROMORPHONE, UP TO 4 MG" completed 09/02/14595340"INJECTION, HYDROMORPHONE, UP TO 4 MG" completed 09/02/14556422"INJECTION, HYDROMORPHONE, UP TO 4 MG" completed 09/02/14"INJECTION, ONDANSETRON HYDROCHLORIDE, PER 1 MG" completed 09/02/14 PROPOFOL INJ 500 MG/50ML completed 09/02/14387229"INJECTION, FENTANYL CITRATE, 0.1 MG" completed 01/27/15 876555"INFUSION, NORMAL SALINE SOLUTION , 1000 CC" completed 09/02/14597961"INFUSION, NORMAL SALINE SOLUTION , 1000 CC" completed 09/02/14862802"INFUSION, NORMAL SALINE SOLUTION , 1000 CC" completed 09/02/14165534"INFUSION, NORMAL SALINE SOLUTION , 1000 CC" completed 09/02/14593487"INFUSION, NORMAL SALINE SOLUTION , 1000 CC" completed 09/02/14007864"INFUSION, NORMAL SALINE SOLUTION , 250 CC" completed 09/02/14904824"INFUSION, NORMAL SALINE SOLUTION , 250 CC" completed 09/02/14493495"INFUSION, NORMAL SALINE SOLUTION , 250 CC" completed 09/02/14939842"INFUSION, NORMAL SALINE SOLUTION , 250 CC" completed 09/02/14509753"INFUSION, NORMAL SALINE SOLUTION , 250 CC" completed 09/02/14836728"INFUSION, NORMAL SALINE SOLUTION , 250 CC" completed 09/02/14 Open reduction and internal fixation (ORIF) of ankle completed 09/23/14 BC BETTS MD Encounters Encounter Location Date/Time Discharged Inpatient [facility] 09/25/14 9:55pm Discharged Inpatient [facility] 09/24/14 3:55pm Recent Diagnosis Bimalleolar ankle fracture Ankle pain, right Ankle pain, right
--- OUTSIDE RECORDS SUMMARY | 2016-12-17 03:22 | XMS REPORT | Referral Summary ---
Author Author [facility], [facility] Organization [facility] Address Unknown Phone Unavailable Care Team Providers Care Garment Manufacturer Name Role Phone Gino Neri Primary Care Physician [phone] Encounter VC Date(s): 07/06/16 - 07/06/16 [facility] [address] [place] [address]- Discharge Diagnosis: Hypertension Discharge Diagnosis: OAB (overactive bladder) Discharge Diagnosis: Pure hypercholesterolemia Discharge Diagnosis: Benign essential tremor Discharge Diagnosis: Irritable bowel syndrome Discharge Diagnosis: Senile osteoporosis Discharge Disposition: 01-Home or Self Care Attending Physician: Mari Neri DO Admitting Physician: Mari Neri DO Vital Signs Most recent to 1 oldest [Reference Range]: Temperature Tympanic 36.0 degC [36.6-38.1 degC] *LOW* (07/06/16 10:31 AM) Peripheral Pulse 67 bpm Rate [60-100 bpm] (07/06/16 10:31 AM) Respiratory Rate 18 br/min [14-20 br/min] (07/06/16 10:31 AM) Blood Pressure 160/80 mmHg [90-140/60-90 mmHg] *HI* (07/06/16 10:31 AM) SpO2 95 % (07/06/16 10:31 AM) Problem List Condition Effective Dates Status Health Status Informant Arthritis(Confirmed) Active Benign essential Active hypertension(Confirm ed) Chicken pox as Active child(Confirmed) Micro Embolus to Active Foot(Confirmed) Benign essential [...] BY MOUTH DAILY, # 90 tabs, eRx: [facility] [id number], TAKE 1 TABLET BY MOUTH DAILY Start Date: 06/14/16 Status: Ordered aspirin 81 mg, Oral, Daily, 0 Refill(s) Start Date: 07/27/15 Status: Ordered atenolol 50 mg oral tablet See Instructions, TAKE 1 TABLET BY MOUTH DAILY ALONG WITH 100MG TABLET TO TOTAL 250MG DAILY, # 30 tabs, eRx: [facility] [id number], TAKE 1 TABLET BY MOUTH DAILY ALONG WITH 100MG TABLET TO TOTAL 250MG DAILY Start Date: 06/29/16 Status: Ordered Calcium 600+D 600 mg-200 intl units oral tablet tabs, Oral, BID, 0 Refill(s) Start Date: 04/30/14 Status: Ordered gabapentin 300 mg oral capsule 300 mg 1 caps, Oral, Take one capsule at bedtime., 0 Refill(s) Start Date: 07/06/16 Status: Ordered hyoscyamine 0.375 mg oral tablet, extended release See Instructions, 1 TABS ORAL Q12HR,INSTR, # 60 tabs, 5 Refill(s), Pharmacy: [facility] [id number], 1 TABS ORAL Q12HR,INSTR Start Date: 07/27/15 Status: Ordered losartan 100 mg oral tablet See Instructions, TAKE 1 TABLET BY MOUTH EVERY DAY, # 30 tabs, 3 Refill(s), eRx : [facility] [id number], TAKE 1 TABLET BY MOUTH EVERY DAY Start Date: 04/05/16 Status: Ordered Multivitamins oral tablet 1 tabs, Oral, Daily Start Date: 04/30/14 Status: Ordered naproxen 500 mg oral tablet See Instructions, 1 TABS ORAL BID, # 60 tabs, eRx: [facility] [id number], 1 TABS ORAL BID Start Date: 09/18/15 Status: Ordered primidone 50 mg oral tablet 2 tabs, Oral, TID Start Date: 04/30/14 Status: Ordered rOPINIRole 0.5 mg oral tablet 0.5 mg 1 tabs, Oral, BID, 0 Refill(s) Start Date: 02/16/16 Status: Ordered tolterodine 2 mg oral capsule, extended release See Instructions, TAKE 1 CAPSULE BY MOUTH DAILY, # 30 caps, eRx: [id number], TAKE 1 CAPSULE BY MOUTH DAILY Start Date: 06/29/16 Status: Ordered tolterodine 2 mg oral capsule, extended release See Instructions, TAKE 1 CAPSULE BY MOUTH DAILY, # 90 caps, 3 Refill(s), eRx: [facility] [id number], TAKE 1 CAPSULE BY MOUTH DAILY Start Date: 06/29/16 Status: Ordered Results No data available for [...] 04/06/09 [place] [facility] [place] Procedure Date Related Diagnosis Body Site [...] Patient Education Author: Mari Neri DO Date: Family Medicine How to Take Your Blood Pressure HOW DO I GET A BLOOD PRESSURE MACHINE? You can buy an electronic home blood pressure machine at your local pharmacy. Insurance will sometimes cover the cost if you have a prescription. Ask your doctor what type of machine is best for you. There are different machines for your arm and your wrist. If you decide to buy a machine to check your blood pressure on your arm, first check the size of your arm so you can buy the right size cuff. To check the size of your arm: Use a measuring tape that shows both inches and centimeters. Wrap the measuring tape around the upper-middle part of your arm. You may need someone to help you measure. Write down your arm measurement in both inches and centimeters. To measure your blood pressure correctly, it is important to have the right size cuff. If your arm is up to 13 inches (up to 34 centimeters), get an adult cuff size. If your arm is 13 to 17 inches (35 to 44 centimeters), get a large adult cuff size. If your arm is 17 to 20 inches (45 to 52 centimeters), get an adult thigh cuff. WHAT DO THE NUMBERS MEAN? There are two numbers that make up your blood pressure. For example: 120/ 80. The first number (120 in our example) is called the "systolic pressure." It is a measure of the pressure in your blood vessels when your heart is pumping blood. The second number (80 in our example) is called the "diastolic pressure. " It is a measure of the pressure in your blood vessels when your heart is resting between beats. Your doctor will tell you what your blood pressure should be. WHAT SHOULD I DO BEFORE I CHECK MY BLOOD PRESSURE? Try to rest or relax for at least 30 minutes before you check your blood pressure. Do not smoke. Do not have any drinks with caffeine, such as: Soda. Coffee. Tea. Check your blood pressure in a quiet room. Sit down and stretch out your arm on a table. Keep your arm at about the level of your heart. Let your arm relax. Make sure that your legs are not crossed. HOW DO I CHECK MY BLOOD PRESSURE? Follow the directions that came with your machine. Make sure you remove any tight-fitting clothing from your arm or wrist. Wrap the cuff around your upper arm or wrist. You should be able to fit a finger between the cuff and your arm. If you cannot fit a finger between the cuff and your arm, it is too tight and should be removed and rewrapped. Some units require you to manually pump up the arm cuff. Automatic units inflate the cuff when you press a button. Cuff deflation is automatic in both models. After the cuff is inflated, the unit measures your blood pressure and pulse. The readings are shown on a monitor. Hold still and breathe normally while the cuff is inflated. Getting a reading takes less than a minute. Some models store readings in a memory. Some provide a printout of readings. If your machine does not store your readings, keep a written record. Take readings with you to your next visit with your doctor. This information is not intended to replace advice given to you by your health care provider. Make sure you discuss any questions you have with your health care provider. Document Released: 07/06/2009 Document Revised: 08/14/2015 Document Reviewed: [employer] Patient Education 2016 [employer] No follow up information was provided. Extracted from: Title: Office Visit Note Author: Mair Neri DO Date: 07/06/16 Assessment/Plan Benign essential tremor Advised patient that she can come off of the gabapentin if she would like to but that she should discuss this with neurology. Advised patient if she wishes to switch neurologists she should just let us now. Ordered: Office Visit Level 4 Est 67577 Hypertension Lab workwhen she is due for her cholesterol panel in July , recheck blood pressure was just is high at 162/80, patient will send in a blood pressure log over the next 2 weeks and then we will decide whether to increase her blood pressure medications or not. She is concerned because she had a [facility] visit and the nurse practitioner indicated that she was on a lot of blood pressure medications. Ordered: Office Visit Level 4 Est 34614 Irritable bowel syndrome Continue hyoscyamine. Ordered: Office Visit Level 4 Est 33116 OAB (overactive bladder) Continue Detrol. Return to clinic in 6 months. Pure hypercholesterolemia Fasting lipid panel and CMP when she is due in the middle of July, return to clinic in 6 months. Ordered: Comprehensive Metabolic Panel Lipid Panel Office Visit Level 4 Est 72292 Senile osteoporosis Bone density scan with further recommendations after results. Ordered: BD Bone Density DEXA Axial Skeleton Office Visit Level 4 Est 67935
--- OUTSIDE RECORDS SUMMARY | 2016-12-17 03:22 | XMS REPORT | Referral Summary ---
Author Author [facility], [facility] Organization [facility] Address Unknown Phone Unavailable Care Team Providers Care Court Stenographer Name Role Phone Gino Neri Primary Care Physician [phone] Encounter VC Date(s): 08/11/16 - 08/11/16 [facility], [address] [place] [address] Discharge Diagnosis: Compression fracture of second lumbar vertebra Discharge Disposition: 01-Home or Self Care Attending Physician: Mari Neri DO Admitting Physician: Mari Neri DO Vital Signs Most recent to 1 oldest [Reference Range]: Temperature Tympanic 36.1 degC [36.6-38.1 degC] *LOW* (08/11/16 2:33 PM) Peripheral Pulse 74 bpm Rate [60-100 bpm] (08/11/16 2:33 PM) Blood Pressure 140/86 mmHg [90-140/60-90 mmHg] (08/11/16 2:33 PM) SpO2 94 % (08/11/16 2:33 PM) Problem List Condition Effective Dates [...] BY MOUTH DAILY, # 90 tabs, eRx: [email or web address] [id number], TAKE 1 TABLET BY MOUTH DAILY Start Date: 06/14/16 Status: Ordered aspirin 81 mg, Oral, Daily, 0 Refill(s) Start Date: 07/27/15 Status: Ordered atenolol 100 mg oral tablet See Instructions, TAKE 1 TABLET BY MOUTH TWICE DAILY ALONG WITH 50MG TABLET DAILY TO TOTAL 250MG DAILY, # 180 tabs, eRx: [email or web address] [id number] Start Date: 07/26/16 Status: Ordered atenolol 50 mg oral tablet See Instructions, TAKE 1 TABLET BY MOUTH DAILY ALONG WITH 100MG TABLET TO TOTAL 250MG DAILY, # 30 tabs, eRx: [email or web address] [id number] Start Date: 07/26/16 Status: Ordered Calcium 600+D 600 mg-200 intl units oral tablet tabs, Oral, BID, 0 Refill(s) Start Date: 04/30/14 Status: Ordered cyclobenzaprine 10 mg oral tablet 10 mg 1 tabs, Oral, TID, as needed for spasm, # 30 tabs, 0 Refill(s), Pharmacy: [email or web address] [id number], 1 tabs Oral TID,PRN:as needed for spasm Start Date: 08/11/16 Stop Date: 08/25/16 Status: Ordered gabapentin 300 mg oral capsule 300 mg 1 caps, Oral, Take one capsule at bedtime., 0 Refill(s) Start Date: 07/06/16 Status: Ordered hydrALAZINE 10 mg oral tablet See Instructions, TAKE 1 TABLET BY MOUTH THREE TIMES DAILY, # 180 tabs, eRx: [email or web address] [id number] Start Date: 07/25/16 Status: Ordered hyoscyamine 0.375 mg oral tablet, extended release See Instructions, 1 TABS ORAL Q12HR,INSTR, # 60 tabs, 1 Refill(s), Pharmacy: [email or web address] [id number], 1 TABS ORAL Q12HR,INSTR Start Date: 08/03/16 Status: Ordered losartan 100 mg oral tablet See Instructions, TAKE 1 TABLET BY MOUTH EVERY DAY, # 90 tabs, eRx: [email or web address] [id number] Start Date: 08/02/16 Status: Ordered Multivitamins oral tablet 1 tabs, Oral, Daily Start Date: 04/30/14 Status: Ordered naproxen 500 mg oral tablet See Instructions, 1 TABS ORAL BID, # 60 tabs, eRx: [email or web address] [id number], 1 TABS ORAL BID Start Date: 09/18/15 Status: Ordered Benedict 5 mg-325 mg oral tablet 1 tabs, Oral, q6hr, as needed for pain, # 45 tabs, 0 Refill(s) Start Date: 08/11/16 Status: Ordered primidone 50 mg oral tablet 2 tabs, Oral, TID Start Date: 04/30/14 Status: Ordered rOPINIRole 0.5 mg oral tablet 0.5 mg 1 tabs, Oral, BID, 0 Refill(s) Start Date: 02/16/16 Status: Ordered tolterodine 2 mg oral capsule, extended release See Instructions, TAKE 1 CAPSULE BY MOUTH DAILY, # 90 caps, 3 Refill(s), eRx: [email or web address] [id number], TAKE 1 CAPSULE BY MOUTH DAILY Start Date: 06/29/16 Status: Ordered tolterodine 2 mg oral capsule, extended release See Instructions, TAKE 1 CAPSULE BY MOUTH DAILY, # 30 caps, 3 Refill(s), Pharmacy: [email or web address] [id number], TAKE 1 CAPSULE BY MOUTH DAILY Start [...] live 04/06/09 Given 1Location History: given at [facility] [place] Procedures Procedure Date Related Diagnosis Body Site Colonoscopic polypectomy1 11/23/15 Hysterectomy 1987 Adenoidectomy Carpal tunnel release - B/L Cataract extraction Dilation and curettage Tonsillectomy 1April 2015 colonoscopy tubular adenoma 1, sigmoid diverticulosis, repeat in 5 years Social History Social History Type Response Smoking Status Former smoker; Type: Cigarettes1 1Quit in 1990 Assessment and Plan Extracted from: Title: ACUTE back pain Author: Mari Neri DO Date: 08/11/16 Assessment/Plan Compression fracture of second lumbar vertebra X-ray shows that this is an old fracture. I discussed with patient that this most likely happened sometime [id number] in the last several months. Since it is not acute it is less likely that this is the cause of patient's pain. Ordered: Office Visit Level 3 Est 69669 Pain in lower back Patient was unable to finish dressing after her x-ray due to pain. I was called down to the area. Patient was given 60 mg of Toradol IM and aftera short period of time the pain was alleviated enough to move. We will go ahead and prescribe the patient some hydrocodone to use along with ibuprofen over-the- counter. We'll also prescribe the patient some cyclobenzaprine. I have discussed with patient the risks of this medication and her age group including but not limited to sedation. Patient voiced understanding and at this time we' ll do anything to get some relief. She is okay to continue chiropractic if she is getting relief but should stop it if it's not helpful. If she is not improvingin a week to 2 she should call us back and we will prescribe some physical therapy or reevaluate the situation. Ordered: Office Visit Level 3 Est 43167
--- OUTSIDE RECORDS SUMMARY | 2016-12-17 03:23 | XMS REPORT | Continuity of Care Document ---
Author Author [facility] Organization [facility] Address Unknown Phone Unavailable Support Name Relationship Address Phone KANCHAN CAITLYN MELENDEZ Caregiver [facility] [address], [place] [id number] HEATHER CAPMO MD Caregiver [address], [place] [phone] MARIELLE HOFF Next Of Kin [address] [place], [place] [id number] Insurance Providers Payer Name Policy Number Subscriber Name Relationship Medicareadvantra Ppo [id number] Karthik Hoff 20 Self Problems Medical Problems Problem Onset Date Status [...] PO Q4H PRN PAIN 100 Qty 09/24/14 Active Aspirin 1 Tab PO DAILY 42 Qty [...] tobacco in the last 12 months No 09/23/2014 11:55am Tobacco Usage none 09/02/2014 9:52am Query Response Start Date Stop Date Smoking Status Never smoker Hospital Discharge Instructions Instructions: Care Instructions: Reason for Hospitalization: Right ankle fracture I was in the hospital because (patient own words): Right ankle fracture Discharge Diet: Regular Discharge Activity: Remain NON- weight bearing on the operative ankle. Elevate the leg to prevent swelling. Keep the splint clean and dry at all times. Do not remove the splint. Follow Up Appointments: Follow up with DR BETTS on 10-01-14 @ 9:45 AM. If you need to change the appt please call [phone]. Patient Instructions: Must remain non weight bearing on the operative leg. Wound/Incision Care: Keep it clean and dry. Call Dr Betts's office for any drainage or uncontrolled pain. Durable Medical Equipment: Use a walker or wheel chair to keep weight off the operative ankle. Notify Physician If: Fever > 102. Drainage or uncontrolled pain. General Information: Do not take Ativan or pain medications with alcohol. Condition at time of discharge: Good Plan of Care Discharge Date 09/25/14 2:30pm Instructions/Education Provided [facility] Ortho Fracture Instruction Prescriptions See Medications Section Functional Status Query Response Date Recorded Physical Hygiene Self September 25, 2014 7:31pm Disabilities Visual September 25, 2014 7:31pm Devices Used Glasses Wheelchair September 25, 2014 7:31pm Dressing Self September 25, 2014 7:31pm Ambulation Self September 25, 2014 7:31pm Diet Self September 25, 2014 7:31pm Mental Status Alert Oriented September 25, 2014 7:31pm Disabilities Visual September 25, 2014 7:31pm Devices Used Glasses Wheelchair September 25, 2014 7:31pm Physical Hygiene Self September 25, 2014 7:31pm Dressing Self September 25, 2014 7:31pm Ambulation Self September 25, 2014 7:31pm Diet Self September 25, 2014 7:31pm Allergies, Adverse Reactions, Alerts Allergen Type Severity Reaction Status Last Updated Lisinopril Allergy Severe uncontrolled coughing Active 09/25/14 Immunizations Name Given Type Hx Influenza Vaccination Y 2013 Historical Hx Pneumococcal Vaccination Y 2008 Historical Hx Influenza Vaccination Y 2013 Historical Hx Tetanus Toxoid Vaccination Y unknown Historical Vital Signs Acute Vital Signs Vital Response Date/Time Temperature (Fahrenheit) 98.2 deg F (96.8 - 99.1) Temperature (Calculated Celsius) 36.49477 degrees C (36.0 - 37.3) Pulse Rate (adult) 64 bpm (60 - 100) Respiratory Rate 16 breaths/min (10 - 20) O2 Sat by Pulse Oximetry 95 % (90 - 100) Oxygen Delivery Method Room Air Blood Pressure 141/69 mm Hg Blood Pressure Source Automatic Cuff Results Test Source Date Result Interp. Ref. [...] Has specimen been collected/obtained? Y Urine Specific [place] September 02, 2014 4:30am 1.015 - Has [...] 4:50am Mixed [place] Prob. Contaminants Name: KARTHIK HOFF Unit #: [id number] : 1940 Sex: F Loc / Svc: SRG DOS: 09/23/14 Signed Report #: [id number] DIAGNOSTIC IMAGING REPORT TYPE OF EXAM: RF FLUOROSCOPY CHARGE </=1 HR Dictated By: KINZA BOX MD Indication: ITS.REASON: ORIF RIGHT ANKLE RF ANKLE RIGHT 3 VIEW: Comparison: Ankle fluoroscopy dated September 02, 2014 Findings: Five fluoroscopic spot images demonstrate open reduction and internal fixation of the bimalleolar ankle fracture with a lateral fibular plate and multiple screws and two threaded cannulated screws across the medial malleolus. There is improved alignment of the fracture fragments. Impression: Intraoperative fluoroscopy as above. . Procedures Procedure Status Date Provider(s) TREATMENT [...] completed 09/02/14 EMERGENCY DEPT VISIT completed 09/02/14 867455"16 SQ. IN. OR LESS, WITHOUT ADHESIVE BORDER, EACH NORA completed [id number] ITEM OR SERVICE completed 09/02/14 [id number] ITEM OR SERVICE completed 09/02/14 [id number] ITEM OR SERVICE completed 09/02/14 [id number] ITEM OR SERVICE completed 09/02/14 [id number] ITEM OR SERVICE completed 09/02/14 [id number] ITEM OR SERVICE completed 09/02/14 [id number] ITEM OR SERVICE completed 09/02/14 [id number] ITEM OR SERVICE completed 09/02/14 [id number] ITEM OR SERVICE completed 09/02/14 [id number] ITEM OR SERVICE completed 09/02/14 [id number] ITEM OR SERVICE completed 09/02/14 [id number] ITEM OR SERVICE completed 09/02/14 [id number] ITEM OR SERVICE completed 09/02/14 [id number] ITEM OR SERVICE completed 09/02/14 [id number] ITEM OR SERVICE completed 09/02/14 [id number] ITEM OR SERVICE completed 09/02/14679187"INJECTION, PANTOPRAZOLE SODIUM, PER VIAL" completed 09/02/14862065"INJECTION, PANTOPRAZOLE SODIUM, PER VIAL" completed 09/02/14986354"HOSPITAL OBSERVATION SERVICE, PER HOUR" completed 09/02/14678683"HOSPITAL OBSERVATION SERVICE, PER HOUR" completed 09/02/14 ALCOHOL, ETHYL completed 09/02/14 PT MOBILITY CURRENT STATUS completed 09/02/14 PT MOBILITY GOAL STATUS completed 09/02/14 PT MOBILITY GOAL STATUS completed 09/02/14 completed 09/02/14 OT SELF CARE CURRENT STATUS completed 09/02/14 OT SELF CARE GOAL STATUS completed 09/02/14318600"INJECTION, CEFAZOLIN SODIUM, 500 MG" completed 09/02/14629512"INJECTION, CEFAZOLIN SODIUM, 500 MG" completed 09/02/14165164"INJECTION, CEFAZOLIN SODIUM, 500 MG" completed 09/02/14981310"INJECTION, CEFAZOLIN SODIUM, 500 MG" completed 09/02/14448495"INJECTION, CEFAZOLIN SODIUM, 500 MG" completed 09/02/14332089"INJECTION, CEFAZOLIN SODIUM, 500 MG" completed 09/02/14957429"INJECTION, HYDROMORPHONE, UP TO 4 MG" completed 09/02/14328787"INJECTION, HYDROMORPHONE, UP TO 4 MG" completed 09/02/14413023"INJECTION, HYDROMORPHONE, UP TO 4 MG" completed 09/02/14"INJECTION, ONDANSETRON HYDROCHLORIDE, PER 1 MG" completed 09/02/14 PROPOFOL INJ 500 MG/50ML completed 09/02/14883214"INJECTION, FENTANYL CITRATE, 0.1 MG" completed 09/02/14253303"INFUSION, NORMAL SALINE SOLUTION , 1000 CC" completed 09/02/14295167"INFUSION, NORMAL SALINE SOLUTION , 1000 CC" completed 09/02/14095505"INFUSION, NORMAL SALINE SOLUTION , 1000 CC" completed 09/02/14890818"INFUSION, NORMAL SALINE SOLUTION , 1000 CC" completed 09/02/14904586"INFUSION, NORMAL SALINE SOLUTION , 1000 CC" completed 09/02/14"INFUSION, NORMAL SALINE SOLUTION , 250 CC" completed 09/02/14"INFUSION, NORMAL SALINE SOLUTION , 250 CC" completed 09/02/14"INFUSION, NORMAL SALINE SOLUTION , 250 CC" completed 09/02/14"INFUSION, NORMAL SALINE SOLUTION , 250 CC" completed 09/02/14"INFUSION, NORMAL SALINE SOLUTION , 250 CC" completed 09/02/14"INFUSION, NORMAL SALINE SOLUTION , 250 CC" completed 09/02/14 Open reduction and internal fixation (ORIF) of ankle completed 09/23/14 BC BETTS MD Encounters Encounter Location Date/Time Registered Emergency Room [facility] 09/25/14 7:23pm Discharged Inpatient [facility] 09/24/14 3:55pm
--- OUTSIDE RECORDS SUMMARY | 2016-12-17 03:23 | XMS REPORT | Continuity of Care Document ---
Author Author [facility] Organization [facility] Address Unknown Phone Unavailable Support Name Relationship Address Phone VICKY CANCINO DO Caregiver Unknown Unavailable VENKAT PEREZ MD Caregiver Unknown Unavailable MARIELLE AMAYA Next Of Kin [address] [phone] Insurance Providers Guarantor Karthik Amaya Address [address] [address] Email [email or web address] Payer Medicareadvantra Ppo Policy Number [id number] Subscriber's Name Karthik Amaya Relationship 18 Self Group Number [id number] Advance Directives Directive Response Recorded Date/Time Ordered Resuscitation Status Full Code, unverified 02/22/16 3:10pm Resuscitation Documents on File Yes 02/24/16 12:45pm DPOA for Healthcare Only Yes 02/24/16 12:45pm Problems Active Problems Medical Problem Onset Date [...] Onset Date Status Chewing Tobacco Status No 02/24/2016 12:46pm Not Applicable Not Applicable Hx Substance Use No 02/24/2016 12:46pm Not Applicable Not Applicable Hx Alcohol Use Y 3-4 A DAY-SCOTCH 02/24/2016 12:46pm Not Applicable Not Applicable Has the pt used tobacco in the last 12 months No 02/24/2016 12:46pm Not Applicable Not Applicable Tobacco Usage none 09/02/2014 9:52am Not Applicable Not Applicable Query Response Start Date Stop Date Smoking Status Former smoker Hospital Discharge Instructions No hospital discharge instructions. Plan of Care Discharge Date 02/24/16 3:23pm Prescriptions See Medication Section Functional Status Query Response Date Recorded Ability to complete ADL's impeded by No change February 24, 2016 12:45pm Allergies, Adverse Reactions, Alerts Allergen Type Severity Reaction Status Last Updated Lisinopril Allergy Severe uncontrolled coughing Active 06/29/15 Immunizations Query Response on File Recorded Date/Time Hx Influenza Vaccination Y MAY 2015 02/24/16 12:46pm Hx Pneumococcal Vaccination Y 200802/24/16 12:46pm Hx Influenza Vaccination Y MAY 2015 02/24/16 12:46pm Hx Tetanus Toxoid Vaccination Y unknown 09/02/14 2:23am Vital Signs Acute Vital Signs Vital Response Date/Time Temperature (Fahrenheit) 97.7 deg F (96.8 - 99.1) 02/24/2016 2:50pm Temperature (Calculated Celsius) 36.58824 degrees C (36.0 - 37.3) 02/24/2016 2:50pm Temperature Source Temporal 02/24/2016 2:50pm Pulse Rate (adult) 64 bpm (60 - 100) 02/24/2016 3:20pm Respiratory Rate 16 breaths/min (10 - 20) 02/24/2016 3:20pm O2 Sat by Pulse Oximetry 97 % (90 - 100) 02/24/2016 3:20pm Oxygen Delivery Method Room Air 02/24/2016 3:20pm Blood Pressure 171/76 mm Hg 02/24/2016 3:20pm Blood Pressure Source Automatic Cuff 02/24/2016 3:20pm Height (Feet) 5 feet 02/24/2016 12:08pm Height (Inches) 4.00 inches 02/24/2016 12:08pm Weight (Kilograms) 74.600 kg 02/24/2016 12:08pm Body Mass Index (BMI) 28.2 02/24/2016 12:08pm Results No known relevant diagnostic tests, laboratory data and/or discharge summary. Procedures Procedure Status Date Provider(s) CATARACT SURG W/IOL 1 STAGE Completed 01/20/16 VENKAT PEREZ MD [id number] ITEM OR SERVICE Completed 01/20/16 [id number] ITEM OR SERVICE Completed 01/20/16 [id number]"LENS, INTRAOCULAR (NEW TECHNOLOGY)" Completed 01/20/16 475331"INJECTION, MIDAZOLAM HYDROCHLORIDE, PER 1 MG" Completed 01/20/16 730457"INJECTION, VANCOMYCIN HCL, 500 MG" Completed 01/20/16 Cataract extraction, left Completed 02/24/16 VENKAT PEREZ MD Encounters Encounter Location Arrival/Admit Date Discharge/Depart Date Attending Provider Departed Surgical [facility] 02/24/16 11:56am 02/24/16 3 :23pm VENKAT PEREZ MD Departed Surgical [facility] 01/20/16 11:18am 01/20/16 3 :15pm VENKAT PEREZ MD
--- NOTE | 2016-12-17 03:28 | ERPDOC ---
Departure Disposition Decision Date: December 17, 2016 Disposition Decision Time: 05:45 Disposition: 01 DISCHARGED HOME, SELF-CARE Impression Impression Impression: Primary Impression: Hypertension Hypertension type: essential hypertension Qualified Codes: I10 - Essential ( primary) hypertension Severity: Moderate Condition: Improved Seen By: Physician only Referrals: VICKY CANCINO DO (Family) 1 Day Patient Instructions: Hypertension (ED) Problems/Meds/Labs Reviewed?: Yes Medications reviewed and manag: Yes Follow up care ordered?: Yes Mental Status: Alert, Oriented HPI - General Medical General Chief Complaint: Hypertension Stated Complaint: FALL Time Seen by Provider: 03:21 Source: patient, EMS Exam Limitations: no limitations HPI - General Medical Initial Comments 76-year-old female presents to the emergency department for evaluation of elevated blood pressure. Patient originally summoned EMS to a residence in order to help her get up off the floor after she felt like she could possibly fall and lowered herself to the floor. Patient denies trauma or injury. Patient does admit to have take "a couple" of alcoholic drinks the evening before. Patient denies any pain or discomfort. Patient was noted to have elevated blood pressure (240 systolic) upon arrival of EMS. Patient denies any recent changes or missed dosages of her medications. She is asymptomatic. She does not note any exacerbating or remitting symptoms. No other complaints or associated symptoms. Occurred At: home Onset: Gradual Allergies: Coded Allergies: lisinopril (Verified Allergy, Severe, uncontrolled coughing, 06/29/15) Past History Past Medical History Metabolic: hypertension Neurological: CVA Surgical History General: tonsils Reproductive/: hysterectomy Family History Family PMH: FOUND: CVA, cancer Vaccines Hx Influenza Vaccination: Yes (MAY 2015) Hx Pneumococcal Vaccination: Yes (2008) Social History Smoking Status: Never smoker Does patient use chewing tobac: No Substance Use Type: does not use Alcohol Intake: daily Review of Systems Constitutional Constitutional: DENIES: chills, fever Eyes General: DENIES: erythema, exudate Lids/Accessories: DENIES: erythema, swelling Vision: DENIES: acuity, blurring ENMT Ears: DENIES: drainage, erythema Hearing: DENIES: hearing loss Balance: DENIES: ataxia, falling to one side Sinuses: DENIES: congestion, pain Nose: DENIES: nosebleeds, pain Mouth/Throat: DENIES: painful swallowing, sore throat Teeth: DENIES: pain Jaw: DENIES: pain Cardiovascular Cardiac: DENIES: chest pain, dyspnea on exertion, orthopnea Rhythm/Rate: DENIES: irregular beat, palpitations Vascular: DENIES: pedal edema, unilateral swelling Pulmonary Respiratory: DENIES: cough, dyspnea, pleuritic chest pain, sputum GI Upper Abdomen: DENIES: nausea, pain, vomiting Lower Abdomen: DENIES: diarrhea, pain General: DENIES: dysuria, frequency, urgency Musculoskeletal General: DENIES: joint pain, tenderness Integumentary Skin: DENIES: itching, rash Neurological General: DENIES: change in strength, headache, numbness, weakness Psychiatric Psychiatric: DENIES: emotional instability, suicidal ideation/attempt Endocrine Endocrine: DENIES: polydipsia, polyphagia Hematologic/Lymphatic Hematologic/Lymphatic: DENIES: frequent nosebleeds, lymphadenopathy Allergic/Immunological Allergic/Immunoligical: DENIES: allergic reactions, hives Physical Exam General General Nourishment: well nourished, well developed, appears stated age, no acute distress, adult General Body Habitus: well groomed Vitals and Pain First Documented Vital Signs Date Time Temp Pulse Resp B/P Pulse Ox O2 Delivery O2 Flow Rate FiO2 12/17/16 03:33 67 18 208/100 96 Room Air 12/17/16 04:28 98.3 Weight: Kilograms: Height (feet): 5 Height (inches): 4.00 Triage Pain Scale: RN VS reviewed by Provider: Yes Normal Exams: Head: Normocephalic w/o trauma Eyes: Pupils are PERRLA w/ EOMI, No scleral icterus, irritation, or foreign bodies noted ENMT: No facial trauma, nasal exudates, pharyngeal erythema, or exudates are noted Dental: No fractured, loose, or missing teeth noted Neck: without adenopathy, JVD, bruits or thyromegaly Chest/Resp: Clear all watkins, with good airflow, and symmetry bilaterally CV: Regular rate and rhythm, without murmur or gallop, Pulses 2+ all extremities, capillary refill, <2 seconds all ext., no pedal edema noted Abdomen: Bowel sounds positive, soft, non-tender, non-distended, no hepatosplenomegaly, masses or bruits noted Lymphatic: No lymphadenopathy, or lymphedema noted Musculoskeletal: No tenderness, or deformity noted, good range of motion, all extremities Integumentary: No rashes, hives, or bruising noted, hair and nails, without abnormality Neurologic: Patient is alert, and oriented, cranial nerves, motor/sensory/ cerebellar, exams w/o gross deficits, to observation Psychiatric: Patient exhibits, appropriate attention, emotion and affect Neck (brief) Neck: FOUND: trachea midline, NOT FOUND: tenderness Comments No midline tenderness or deformity of the cervical spine. Musculoskeletal (brief) Comments Pelvis is nontender to compression. Stable. Full range of motion of the lower extremities. No midline tenderness to palpation of the thoracic/lumbar spine. Differential Diagnoses Considering: Medication Effect, Metabolic, UTI, Other (HTN / ) Progress Results/Orders Orders Procedure Category Date Status Time Cbc W/Auto LAB 12/17/16 Complete Diff-Reflex Manual Cmp - Comprehensive LAB 12/17/16 Complete Metabolic Troponin I W LAB 12/17/16 Complete Hemolysis Index EKG EKG 12/17/16 Taken Chest 1 View RAD 12/17/16 Taken 03:27 Iv Lock (Ed Only) EDM 12/17/16 Transmitted 03:27 Ct Head W/O Contrast CT 12/17/16 Taken 03:41 Ct Cervical Spine W/O CT 12/17/16 Taken Contrast 03:41 Ua, Dip Wreflex LAB 12/17/16 Complete Microsc & Pyrotechnist 04:11 Lab Results Laboratory Tests Test 12/17/16 03:00 12/17/16 04:11 White Blood Count 7.7T/MM3 Red Blood Count 4.60M/MM3 Hemoglobin 14.6GM/DL Hematocrit 42.6% Mean Corpuscular Volume 92.6UM3 Mean Corpuscular Hemoglobin 31.7UUG Mean Corpuscular Hemoglobin Concent 34.3GM/DL RDW Standard Deviation 40.6FL Platelet Count 170T/MM3 Mean Platelet Volume 9.6UM3 Immature Granulocyte % (Auto) 0.1% Neutrophils (%) (Auto) 68.0% Lymphocytes (%) (Auto) 22.8% Monocytes (%) (Auto) 7.6% Eosinophils (%) (Auto) 1.0% Basophils (%) (Auto) 0.5% Absolute Immature Granulocyte (auto 0.01T/MM3 Absolute Neutrophils (auto) 5.2T/MM3 Absolute Lymphocytes (auto) 1.8T/MM3 Absolute Monocytes (auto) 0.6T/MM3 Absolute Eosinophils (auto) 0.1T/MM3 Absolute Basophils (auto) 0.0T/MM3 Turbidity < 20 Sodium Level 141MEQ/L Potassium Level 4.0MEQ/L Chloride Level 100MEQ/L Carbon Dioxide Level 22MEQ/L Anion Gap 19MEQ/L Blood Urea Nitrogen 15.0MG/DL Creatinine 0.7MG/DL Glomerular Filtration Rate Calc 82 BUN/Creatinine Ratio 21RATIO Glucose Level 122MG/DL Calculated Osmolality 273MOSM/KG Calcium Level 9.1MG/DL Total Bilirubin 0.40MG/DL Icterus Index < 2 Aspartate Amino Transf (AST/SGOT) 26U/L Alanine Aminotransferase (ALT/SGPT) 32U/L Alkaline Phosphatase 66U/L Troponin I < 0.012ng/ml Total Protein 7.9G/DL Albumin 4.8G/DL Globulin 3.1G/DL Albumin/Globulin Ratio 1.5RATIO Chemistry Specimen Hemolysis 32 Urine Collection Type Cleancatch-midstream Urine Color Yellow Urine Turbidity Clear Urine pH 6.0 Urine Specific [place] <=1.005 Urine Protein Negative Urine Glucose (UA) Negative Urine Ketones Negative Urine Blood Trace-lysed Urine Nitrite Negative Urine Bilirubin Negative Urine Urobilinogen 0.2EU/DL Urine Leukocyte Esterase Negative Urinalysis Comment Microscopic not ind. Progress Progress Labs / imaging were discussed in detail with the patient and questions are answered. Patient was not given further anti-hypertensive treatment in the emergency department as she has reduced her blood pressure by approximately 25% from EMS's initial reading on her own. Patient was recommended to undergo admission to the hospital which she declines.The plan of care was to admit the patient to the hospital for further lowering of her blood pressure in a safe controlled manner not to injure her cerebral perfusion pressure. She was recommended to undergo admission to the hospital for further evaluation and treatment of her uncontrolled hypertension which the patient declined. Risks versus benefits of leaving the emergency department without admission to the hospital are discussed in detail with the patient and questions are answered. She verbalizes agreement and understanding but does not change her mind. 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 Patient is discharged home in accordance with her wishes. She is to follow up as instructed. She is to follow her home antihypertensive medication regimen. She is to return to the emergency room if her condition worsens or changes in any manner. She is to follow up as soon as possible with her PCP. Patient is clinically sober at the time of discharge. She is alert and oriented x 4. Speech is normal. She is not ataxic. She is clinically capable of medical decision making at this time. She remained asymptomatic in the ED with her elevated blood pressure. I did offer further treatment of the blood pressure which the patient declined once she made the decision to return home. EKG EKG : Rate: 60-100 Rhythm: sinus [place]: normal QRS: normal Intervals: normal ST/T: normal Interpreted by: signing physician EKG Comments EKG is unchanged from 09/02/14. Xray Xray : Xray: CXR Portable Interpretation: Normal, Faxed Report CT CT : CT: Head no contrast Interpretation: Normal (CT Cervical Spine: Negative. ), Faxed Report PHYLLIS HORNER DO December 17, 2016 03:28
[2016-12-17 03:47] LABS: BASOPHILS % (AUTO) 0.5 % (0-2); EOSINOPHILS # (AUTO) 0.1 T/MM3 (0-0.5); HCT - HEMATOCRIT 42.6 % (36-46); HGB - HEMOGLOBIN 14.6 GM/DL (12-16); IMMATURE GRANULOCYTE # (AUTO) 0.01 T/MM3 (0.00-0.03); IMMATURE GRANULOCYTE % (AUTO) 0.1 % (0.0-0.5); LYMPHOCYTES # (AUTO) 1.8 T/MM3 (1-4.8); LYMPHOCYTES % (AUTO) 22.8 % (23-45); MEAN CORPUSCULAR HGB 31.7 UUG (26-34); MEAN CORPUSCULAR HGB CONC(MCHC 34.3 GM/DL (31-37); MEAN CORPUSCULAR VOLUME 92.6 UM3 (80-100); MEAN PLATELET VOLUME 9.6 UM3 (9.4-12.4); MONOCYTES # (AUTO) 0.6 T/MM3 (0-0.8); MONOCYTES % (AUTO) 7.6 % (0-9.0); NEUTROPHILS #(AUTO)-ABSOLUTE 5.2 T/MM3 (1.8-7.7); WBC - WHITE BLOOD COUNT 7.7 T/MM3 (4.5-11.0)
[2016-12-17 03:57] LABS: ALBUMIN 4.8 G/DL (3.5-5.0); ALBUMIN/GLOBULIN RATIO 1.5 RATIO (1.1-2.2); ALKALINE PHOSPHATASE 66 U/L (38-126); ALT (SGPT) 32 U/L (9-52); ANION GAP 19 MEQ/L (5-15); AST (SGOT) 26 U/L (14-36); BUN/CREATININE RATIO 21 RATIO (6-26); CALCIUM 9.1 MG/DL (8.4-10.2); CHLORIDE 100 MEQ/L (98-107); CO2 - CARBON DIOXIDE 22 MEQ/L (22-30); CREATININE 0.7 MG/DL (0.7-1.2); GLOMERULAR FILTRATION RATE 82; GLUCOSE 122 MG/DL (65-110); SODIUM 141 MEQ/L (134-144); TOTAL PROTEIN 7.9 G/DL (6.3-8.2)
--- NOTE | 2016-12-17 04:23 | NUR ---
PT RETURNED FROM RADIOLOGY
[2016-12-17] MEDS ORDERED: ATEN50TA PO (04:30)
[2016-12-17 04:41] LABS: BLOOD, URINE TRACE-LYSED (NEGATIVE); COLOR,URINE YELLOW (YELLOW); LEUKOCYTE ESTERASE ,URINE NEGATIVE (NEGATIVE); NITRITE,URINE NEGATIVE (NEGATIVE); UROBILINOGEN,URINE 0.2 EU/DL (NORMAL)
--- OUTSIDE RECORDS SUMMARY | 2016-12-17 04:56 | XMS REPORT | Continuity of Care Document ---
Author Author [facility] Organization [facility] Address Unknown Phone Unavailable Support Name Relationship Address Phone COURTNEY VALLE MD Caregiver [address] [place] [address] HEATHER CAMPO MD Caregiver [address] [place] [phone] BC SLAUGHTER MD Caregiver [address] [place] [address] MARIELLE AMAYA Next Of Kin [address] [place] [address] Insurance Providers Payer Name Policy Number Subscriber Name Relationship Medicareadvantra Ppo [id number] Karthik Amaya 20 Self Advance Directives Directive [...] F (96.8 - 99.1) Temperature (Calculated Celsius) 37.01749 degrees C (36.0 - 37.3) Temperature Source [...] specimen been collected/ obtained? Y Urine Specific [place] September 02, 2014 4:30am 1.015 - Has [...] Prob. Contaminants Name: KARTHIK AMAYA Unit #: [id number] : 1940 Sex: F Loc / Svc: SRG DOS: 09/02/14 Signed Report #: [id number] DIAGNOSTIC IMAGING REPORT TYPE OF EXAM: RF [...]
--- OUTSIDE RECORDS SUMMARY | 2016-12-17 04:56 | XMS REPORT | Continuity of Care Document ---
Author Author [facility] Organization [facility] Address Unknown Phone Unavailable Support Name Relationship Address Phone COURTNEY VALLE MD Caregiver [address] [place] [address] HEATHER CAMPO MD Caregiver [address] [place] [phone] BC BETTS MD Caregiver [address] [place] [address] MARIELLE AMAYA Next Of Kin [address] [place] [address] Insurance Providers Payer Name Policy Number Subscriber Name Relationship Medicareadvantra Ppo [id number] Karthik Amaya 20 Self Advance Directives Directive [...] Appointments: [address] Betts. call [phone] to arrange. FOLLOW UP APPOINTMENT IS ON [...] Disposition 01 DISCHARGED HOME, SELF-CARE Instructions/Education Provided [facility] Ortho Fracture Instruction Fracture Reduction -- Closed [...] F (96.8 - 99.1) Temperature (Calculated Celsius) 37.31799 degrees C (36.0 - 37.3) Temperature Source [...] specimen been collected/ obtained? Y Urine Specific [place] September 02, 2014 4:30am 1.015 - Has [...] Prob. Contaminants Name: KARTHIK AMAYA Unit #: [id number] : 1940 Sex: F [facility]: SRG DOS: 09/02/14 Signed Report #: [id number] DIAGNOSTIC IMAGING REPORT TYPE OF EXAM: RF [...] MD Encounters Encounter Location Date/Time Admitted Inpatient [facility] 09/02/14 3:23am Recent Diagnosis Open fracture ankle, bimalleolar Open fracture ankle, bimalleolar History of CVA (cerebrovascular accident) Hypertension Open fracture ankle, bimalleolar Bimalleolar ankle fracture
--- OUTSIDE RECORDS SUMMARY | 2016-12-17 04:57 | XMS REPORT | Continuity of Care Document ---
Author Author [facility] Organization [facility] Address Unknown Phone Unavailable Allergies Medications Problems Procedures Results Encounters ACCT No. Visit Date/Time Discharge Status Pt. Type Provider Facility Loc./Unit Complaint [id number] 10/28/2013 13:01:00 10/28/2013 23 :59:59 CLS Outpatient
--- OUTSIDE RECORDS SUMMARY | 2016-12-17 04:57 | XMS REPORT | Continuity of Care Document ---
Author Author [facility] Organization [facility] Address Unknown Phone Unavailable Support Name Relationship Address Phone KANCHANCAITLYN PUENTE Caregiver [facility] [address] [place], [place] [phone] HEATHER CAMPO MD Caregiver [address] [place], [place] [phone] BC BETTS MD Caregiver [address] [place], [place] [phone] MARIELLE AMAYA Next Of Kin [address] [place], [place] [id number] Insurance Providers Payer Name Policy Number Subscriber Name Relationship Medicareadvantra Ppo [id number] Karthik Amaya 20 Self Advance Directives Directive [...] Appointments: [address] Betts. Call [phone] to confirm appointment is made or to [...] F (96.8 - 99.1) Temperature (Calculated Celsius) 37.41298 degrees C (36.0 - 37.3) Pulse Rate [...] Has specimen been collected/obtained? Y Urine Specific [place] September 02, 2014 4:30am 1.015 - Has [...] Prob. Contaminants Name: KARTHIK AMAYA Unit #: [id number] : 1940 Sex: F Loc / Svc: SRG DOS: 09/25/14 Signed Report #: [id number] DIAGNOSTIC IMAGING REPORT TYPE OF EXAM: FOOT [...] completed 09/02/14 EMERGENCY DEPT VISIT completed 09/02/14 957728"16 SQ. IN. OR LESS, WITHOUT ADHESIVE BORDER, EACH NORA completed [id number] ITEM OR SERVICE completed 09/02/14 [id number]-WKKLRRN ITEM OR SERVICE completed 09/02/14 043755PON-MXUPUVN ITEM OR SERVICE completed 09/02/14 874072HHM-DYAJLGT ITEM OR SERVICE completed 09/02/14 853250MNN-UGKOEDB ITEM OR SERVICE completed 09/02/14 341745QPP-YDKRHAJ ITEM OR SERVICE completed 09/02/14 279751YLN-YFIFETC ITEM OR SERVICE completed 09/02/14 441371FFF-WSZWTUW ITEM OR SERVICE completed 09/02/14 150356XCV-VJOYJMR ITEM OR SERVICE completed 09/02/14 869218GCC-NHAFGLE ITEM OR SERVICE completed 09/02/14 280201YYL-FETUMWI ITEM OR SERVICE completed 09/02/14 882858QHW-UUDWROP ITEM OR SERVICE completed 09/02/14 161426IQS-GNRHZNT ITEM OR SERVICE completed 09/02/14 350834FLU-WMWDSFO ITEM OR SERVICE completed 09/02/14 266753FPK-UZMUYMU ITEM OR SERVICE completed 09/02/14 146749AGM-IYYCQRE ITEM OR SERVICE completed 09/02/14 849656"INJECTION, PANTOPRAZOLE SODIUM, PER VIAL" completed 09/02/14863524"INJECTION, PANTOPRAZOLE SODIUM, PER VIAL" completed 09/02/14125098"HOSPITAL OBSERVATION SERVICE, PER HOUR" completed 09/02/14998022"HOSPITAL OBSERVATION SERVICE, PER HOUR" completed 09/02/14 ALCOHOL, ETHYL completed 09/02/14 PT MOBILITY CURRENT STATUS completed 09/02/14 PT MOBILITY GOAL STATUS completed 09/02/14 PT MOBILITY GOAL STATUS completed 09/02/14 completed 09/02/14 OT SELF CARE CURRENT STATUS completed 09/02/14 OT SELF CARE GOAL STATUS completed 09/02/14887016"INJECTION, CEFAZOLIN SODIUM, 500 MG" completed 09/02/14495009"INJECTION, CEFAZOLIN SODIUM, 500 MG" completed 09/02/14972463"INJECTION, CEFAZOLIN SODIUM, 500 MG" completed 09/02/14214510"INJECTION, CEFAZOLIN SODIUM, 500 MG" completed 09/02/14891830"INJECTION, CEFAZOLIN SODIUM, 500 MG" completed 09/02/14571386"INJECTION, CEFAZOLIN SODIUM, 500 MG" completed 09/02/14473050"INJECTION, HYDROMORPHONE, UP TO 4 MG" completed 09/02/14577241"INJECTION, HYDROMORPHONE, UP TO 4 MG" completed 09/02/14876505"INJECTION, HYDROMORPHONE, UP TO 4 MG" completed 09/02/14"INJECTION, ONDANSETRON HYDROCHLORIDE, PER 1 MG" completed 09/02/14 PROPOFOL INJ 500 MG/50ML completed 09/02/14834513"INJECTION, FENTANYL CITRATE, 0.1 MG" completed 01/27/15 318804"INFUSION, NORMAL SALINE SOLUTION , 1000 CC" completed 09/02/14887752"INFUSION, NORMAL SALINE SOLUTION , 1000 CC" completed 09/02/14359002"INFUSION, NORMAL SALINE SOLUTION , 1000 CC" completed 09/02/14372371"INFUSION, NORMAL SALINE SOLUTION , 1000 CC" completed 09/02/14671306"INFUSION, NORMAL SALINE SOLUTION , 1000 CC" completed 09/02/14582447"INFUSION, NORMAL SALINE SOLUTION , 250 CC" completed 09/02/14934365"INFUSION, NORMAL SALINE SOLUTION , 250 CC" completed 09/02/14744881"INFUSION, NORMAL SALINE SOLUTION , 250 CC" completed 09/02/14580524"INFUSION, NORMAL SALINE SOLUTION , 250 CC" completed 09/02/14164341"INFUSION, NORMAL SALINE SOLUTION , 250 CC" completed 09/02/14342897"INFUSION, NORMAL SALINE SOLUTION , 250 CC" completed 09/02/14 Open reduction and internal fixation (ORIF) of ankle completed 09/23/14 BC BETTS MD Encounters Encounter Location Date/Time Discharged Inpatient [facility] 09/25/14 9:55pm Discharged Inpatient [facility] 09/24/14 3:55pm Recent Diagnosis Bimalleolar ankle fracture Ankle pain, right Ankle pain, right
--- OUTSIDE RECORDS SUMMARY | 2016-12-17 04:58 | XMS REPORT | Continuity of Care Document ---
Author Author [facility] Organization [facility] Address Unknown Phone Unavailable Support Name Relationship Address Phone KANCHAN CAITLYN MELENDEZ Caregiver [facility] [address] [place], [place] [phone] HEATHER CAMPO MD Caregiver [address] [place], [place] [phone] MARIELLE HOFF Next Of Kin [address] [place], [place] [phone] Insurance Providers Payer Name Policy Number Subscriber Name Relationship Medicareadvantra Ppo [id number] Karthik Hoff 20 Self Problems Medical Problems [...] need to change the appt please call [phone]. Patient Instructions: Must remain non weight bearing [...] F (96.8 - 99.1) Temperature (Calculated Celsius) 36.24332 degrees C (36.0 - 37.3) Pulse Rate [...] Has specimen been collected/obtained? Y Urine Specific [place] September 02, 2014 4:30am 1.015 - Has [...] Clean Catch-Midstream September 02, 2014 4:50am Mixed [place] Prob. Contaminants Name: KARTHIK HOFF Unit #: [id number] : 1940 Sex: F Loc / Svc: SRG DOS: 09/23/14 Signed Report #: [id number] DIAGNOSTIC IMAGING REPORT TYPE OF EXAM: RF [...] completed 09/02/14 EMERGENCY DEPT VISIT completed 09/02/14 416517"16 SQ. IN. OR LESS, WITHOUT ADHESIVE BORDER, EACH NORA completed [id number] ITEM OR SERVICE completed 09/02/14 [id number]-DLKHWLF ITEM OR SERVICE completed 09/02/14 [id number]-FQIOTWZ ITEM OR SERVICE completed 09/02/14 [id number]-DPAYZVZ ITEM OR SERVICE completed 09/02/14 [id number]-ZYHULCT ITEM OR SERVICE completed 09/02/14 [id number]-QOKDXLN ITEM OR SERVICE completed 09/02/14 [id number] ITEM OR SERVICE completed 09/02/14 [id number]-MUMSJRU ITEM OR SERVICE completed 09/02/14 [id number]-YSFEUCM ITEM OR SERVICE completed 09/02/14 [id number]-SCTADST ITEM OR SERVICE completed 09/02/14 814847DIM-KZRGENZ ITEM OR SERVICE completed 09/02/14 [id number]-AXCDQOT ITEM OR SERVICE completed 09/02/14 254532AVP-OPDYGAP ITEM OR SERVICE completed 09/02/14 512903WBR-XDITLUI ITEM OR SERVICE completed 09/02/14 [id number]-DJIXQSF ITEM OR SERVICE completed 09/02/14 [id number]-GFTMVGI ITEM OR SERVICE completed 09/02/14449555"INJECTION, PANTOPRAZOLE SODIUM, PER VIAL" completed 09/02/14367542"INJECTION, PANTOPRAZOLE SODIUM, PER VIAL" completed 09/02/14878360"HOSPITAL OBSERVATION SERVICE, PER HOUR" completed 09/02/14803403"HOSPITAL OBSERVATION SERVICE, PER HOUR" completed 09/02/14 ALCOHOL, ETHYL completed 09/02/14 PT MOBILITY CURRENT STATUS completed 09/02/14 PT MOBILITY GOAL STATUS completed 09/02/14 PT MOBILITY GOAL STATUS completed 09/02/14 completed 09/02/14 OT SELF CARE CURRENT STATUS completed 09/02/14 OT SELF CARE GOAL STATUS completed 09/02/14592583"INJECTION, CEFAZOLIN SODIUM, 500 MG" completed 09/02/14917629"INJECTION, CEFAZOLIN SODIUM, 500 MG" completed 09/02/14855250"INJECTION, CEFAZOLIN SODIUM, 500 MG" completed 09/02/14103603"INJECTION, CEFAZOLIN SODIUM, 500 MG" completed 09/02/14032373"INJECTION, CEFAZOLIN SODIUM, 500 MG" completed 09/02/14404634"INJECTION, CEFAZOLIN SODIUM, 500 MG" completed 09/02/14133742"INJECTION, HYDROMORPHONE, UP TO 4 MG" completed 09/02/14198453"INJECTION, HYDROMORPHONE, UP TO 4 MG" completed 09/02/14806488"INJECTION, HYDROMORPHONE, UP TO 4 MG" completed 09/02/14"INJECTION, ONDANSETRON HYDROCHLORIDE, PER 1 MG" completed 09/02/14 PROPOFOL INJ 500 MG/50ML completed 09/02/14229329"INJECTION, FENTANYL CITRATE, 0.1 MG" completed 09/02/14756601"INFUSION, NORMAL SALINE SOLUTION , 1000 CC" completed 09/02/14199063"INFUSION, NORMAL SALINE SOLUTION , 1000 CC" completed 09/02/14395828"INFUSION, NORMAL SALINE SOLUTION , 1000 CC" completed 09/02/14683672"INFUSION, NORMAL SALINE SOLUTION , 1000 CC" completed 09/02/14327087"INFUSION, NORMAL SALINE SOLUTION , 1000 CC" completed [...] Encounters Encounter Location Date/Time Registered Emergency Room [facility] 09/25/14 7:23pm Discharged Inpatient [facility] 09/24/14 3:55pm
[2016-12-17 06:00] VITALS: BP 201/86; PULSE 74; RESP 56; TEMP 98.3; O2SAT 95
--- NOTE | 2016-12-17 06:00 | NUR ---
DISCHARGE PT REQUESTING TO RETURN HOME TO HER . DISCHARGE ORDERS RECEIVED, AND DISMISSAL INSTRUCTIONS GIVEN. QUESTIONS WERE ANSWERED TO HER SATISFACTION. PT ASSISTED TO LOBBY VIA WHEELCHAIR TO WAIT FOR HER RIDE.
--- NOTE | 2016-12-18 10:24 | DI ---
Indication: ITS.REASON: fall PROCEDURE: CT HEAD W/O CONTRAST: Encounter: Initial Comparison: June 29, 2015 Technique: Axial CT images through the head were performed without contrast. Iterative Reconstruction dose reducing technique was utilized. FINDINGS: Mild to moderate generalized atrophy. The ventricles are of normal size, shape, and configuration for the patient's age. There is no evidence of acute intracranial hemorrhage, midline displacement, or mass effect. There are scattered areas of low attenuation in the white matter which most likely represent changes of chronic microvascular ischemia. The CT attenuation of the brain parenchyma is otherwise normal within the cerebellum, brain stem, and cerebral hemispheres. The tympanic cavities and mastoid air cells are free of appreciable disease. There are no definite fractures of the skull base, calvarium, or visualized portion of the midface. IMPRESSION: No CT evidence of acute traumatic intracranial injury. There is a preliminary report by [facility]. .
--- NOTE | 2016-12-18 10:25 | DI ---
Indication: ITS.REASON: fall, pain PROCEDURE: CT CERVICAL SPINE W/O CONTRAST: Encounter: Initial Comparison: June 29, 2015 Technique: Axial CT images through the cervical spine were performed without contrast. Coronal and sagittal reformatted images were also obtained. Automated Exposure Control and Iterative Reconstruction dose reducing techniques were utilized. FINDINGS: The alignment of the cervical spine is normal. Moderate to severe degenerative changes are present. There is no evidence of acute fracture or subluxation of the cervical spine. The atlantoaxial articulation, dens, and upper cervical spine demonstrate no subluxation. The paraspinal soft tissues and spinal canal appear unremarkable. IMPRESSION: No acute traumatic abnormality of the cervical spine. There is a preliminary report by [facility]. .
--- NOTE | 2016-12-18 10:26 | DI ---
Indication: ITS.REASON: htn PROCEDURE: CHEST 1 VIEW: Encounter: Initial Comparison: August 22, 2009 Findings: The lungs are stable in appearance without new focal airspace consolidation. There is no pleural effusion or pneumothorax. The heart size, pulmonary vascularity and mediastinal contours are unchanged. IMPRESSION: Stable appearance of the chest without acute cardiopulmonary disease. There is a preliminary report by [facility]. .
== END 2016-12-17 06:00 | disposition home or self-care (01) ==
LOC: ED 03:17
DX: I10 Essential (primary) hypertension (principal)
CPT/HCPCS: 80053; 81003; 84484; 85025; 93005

== ENCOUNTER 2017-01-16 21:23 | Observation (INO) ==
--- NOTE | 2017-01-16 21:56 | Emergency Department Report ---
General Adult HPI - General Chief complaint: Fall Stated complaint: Fall Time Seen by Provider: 01/16/17 21:48 Source: patient, EMS Mode of arrival: EMS Limitations: no limitations - History of Present Illness HPI narrative: 76-year-old female presents to the emergency department with a chief complaint of a fall prior to arrival. Patient is unsure exactly why she fell but believes it is secondary to her medication was makes her lightheaded. Patient denies any pain or discomfort other than in the right hip. Pain is moderate. No radiation. Pain increases with ambulation and improves with rest. Pain is dull. Pain is been persistent in nature since onset. The fall was immediately prior to arrival to the emergency department today. Patient does note that she has been drinking earlier this evening with a " a couple drinks of Scotch." No other complaints or associated symptoms. - Related Data Home Medications Medication Instructions Recorded Confirmed Multivitamins W-Minerals (Multiple 1 tab PO DAILY #0 08/22/09 01/17/17 Vitamin) Amlodipine Besylate 10 mg PO DAILY #0 tab 09/02/14 01/17/17 Atenolol 100 mg PO BID #0 09/02/14 01/17/17 Hyoscyamine Sulfate [Hyoscyamine 1 tab PO DAILY #0 tab 09/02/14 01/17/17 Sulfate ER] Primidone 100 mg PO TID #0 tab 09/02/14 01/17/17 Losartan Potassium 100 mg PO DAILY #0 tab 09/25/14 01/17/17 Aspirin [Aspir 81] 1 tab PO DAILY #0 tab 11/20/15 01/17/17 Calcium Citrate 600 mg PO BID 01/17/17 01/17/17 CloNIDine [Catapres] 1 tab PO TID 01/17/17 01/17/17 Hydralazine [Apresoline] 10 mg PO BID 01/17/17 01/17/17 Allergies Allergy/AdvReac Type Severity Reaction Status Date / Time lisinopril Allergy Severe uncontrolled Verified 01/16/17 21:37 coughing Review of Systems Constitutional: Denies: fever, chills Eyes: Denies: eye pain, vision change ENT: Denies: ear pain, throat pain Cardiovascular: Denies: chest pain, dyspnea on exertion Respiratory: Denies: cough, dyspnea Gastrointestinal: Denies: abdominal pain, nausea, vomiting, diarrhea Genitourinary: Denies: urgency, dysuria Musculoskeletal: Reports: arthralgia. Denies: back pain Integumentary: Denies: erythema, rash Neurological: Denies: headache, numbness Psychiatric: Denies: anxiety, depression, suicidal thoughts, homicidal thoughts Endocrine: Denies: fatigue, heat or cold intolerance Hematological/Lymphatic: Denies: easy bleeding, easy bruising PFSH Patient Stated Medical History Cerebrovascular Accident Yes: unknown date or whether it was a TIA Hypertension Yes Other GI Yes: IBS Surgical History: Negative Family History: Negative - Social History Smoking status: Never smoker Substance use type: does not use Alcohol intake frequency: 0-2 drinks per day Physical Exam - Limitations Limitations: no limitations - General General appearance: alert, in no apparent distress - Normal Exams: Head:: Normocephalic without trauma Eyes:: Pupils are PERRLA w/ EOMI, No scleral icterus, irritation, or foreign bodies noted ENMT:: No facial trauma, nasal exudates, pharyngeal erythema, or exudates are noted Dental: No fractured, loose, or missing teeth noted Neck:: Full range of motion, without adenopathy, JVD, bruits or thyromegaly Chest/Respirations:: Clear all watkins, with good airflow, and symmetry bilaterally Cardiovascular:: Regular rate and rhythm, without murmur or gallop, Pulses 2+ all extremities, capillary refill, <2 seconds all extremities Abdomen:: Bowel sounds positive, soft, non-tender, non-distended, no hepatosplenomegaly, masses or bruits noted Lymphatic:: No lymphadenopathy, or lymphedema noted Musculoskeletal:: No tenderness, or deformity noted, good range of motion, all extremities (right hip - full range of motion. Diffusely tender to palpation. Pulses intact. Sensation intact. Capillary refill less than 2. No other tenderness in the right lower extremity. Skin is intact. No erythema or edema. Patient is unable to ambulate without marked assistance.) Integumentary:: No rashes, hives, or bruising noted, hair and nails, without abnormality Neurological:: Patient is alert, and oriented, cranial nerves, motor/sensory/ cerebellar, exams w/o gross deficits, to observation Psychiatric:: Patient exhibits, appropriate attention, emotion and affect Course Vital Signs Temperature 98.1 F 01/16/17 21:26 Pulse Rate 60 01/16/17 21:26 Respiratory Rate 16 01/16/17 21:26 Blood Pressure 146/70 H 01/16/17 21:26 Pulse Oximetry 92 01/16/17 21:26 Temperature 97.9 F 01/17/17 15:30 Pulse Rate 60 01/17/17 16:00 Respiratory Rate 18 01/17/17 15:30 Blood Pressure 161/77 H 01/17/17 15:30 Pulse Oximetry 93 01/17/17 15:30 Medical Decision Making - [facility] Narrative Medical decision making narrative: Labs/imaging were discussed in detail with the patient and questions are answered. Patient refused offered initial analgesic pain medication upon her arrival to the emergency department. Initial analgesic pain medication was offered less than 1 hour after arrival to the emergency department. Patient does eventually agree to accept analgesic pain medication which was provided later during her ED stay. Patient is given thiamin 100 mg times one. Patient is unable to ambulate with a normal pelvic x-ray. CT scan of the pelvis is obtained and is unremarkable for fracture. Patient is still unable to ambulate so patient is admitted to the service of Dr. Correa after discussion with Dr. Quinonez who is in agreement with the current plan of management. Orthopedics will be consulted in the morning. Patient is in agreement with the current plan of management. She'll be admitted to the hospital in improved condition. No further orders. - Differential Diagnosis fall, fracture, sprain, strain - Lab Data Result diagrams: 01/17/17 20:08 01/17/17 20:08 Lab Results 01/16/17 01/16/17 01/16/17 Range/Units 23:32 23:32 23:32 WBC 5.9 (4.5-11.0) T/MM3 RBC 4.11 (4.00-5.20) M/MM3 Hgb 13.1 (12-16) GM/DL Hct 39.8 (36-46) % MCV 96.8 (80-100) UM3 MCH 31.9 (26-34) UUG MCHC 32.9 (31-37) GM/DL RDW Std Deviation 42.6 (36.9-50.2) FL Plt Count 191 (130-400) T/MM3 MPV 9.9 (9.4-12.4) UM3 Immature Gran % (Auto) 0.5 (0.0-0.5) % Neut % (Auto) 51.4 (33-66) % Lymph % (Auto) 36.4 (23-45) % [place] % (Auto) 8.3 (0-9.0) % Eos % (Auto) 2.9 (0-4) % Baso % (Auto) 0.5 (0-2) % Neut # 3.1 (1.8-7.7) T/MM3 Lymph # 2.2 (1-4.8) T/MM3 [place] # 0.5 (0-0.8) T/MM3 Eos # 0.2 (0-0.5) T/MM3 Baso # 0.0 (0-0.2) T/MM3 Abs Immat Gran (auto) 0.03 (0.00-0.03) T/MM3 Turbidity < 20 (0-20) Sodium 145 H (134-144) MEQ/L Potassium 3.9 (3.6-5) MEQ/L Chloride 106 (98-107) MEQ/L Carbon Dioxide 24 (22-30) MEQ/L Anion Gap 15 (5-15) MEQ/L BUN 19.0 H (7-17) MG/DL Creatinine 0.6 L (0.7-1.2) MG/DL GFR Calculation 98 BUN/Creatinine Ratio 32 H (6-26) RATIO Glucose 96 (65-110) MG/DL Calculated Osmolality 281 H (261-280) MOSM/KG Calcium 9.7 (8.4-10.2) MG/DL Total Bilirubin 0.30 (0.20-1.30) MG/DL Icterus Index < 2 (0-7) AST 29 (14-36) U/L ALT 37 (9-52) U/L Alkaline Phosphatase 62 (38-126) U/L Troponin I < 0.012 (0-0.12) ng/ml Total Protein 7.4 (6.3-8.2) G/DL Albumin 4.6 (3.5-5.0) G/DL Globulin 2.8 (2.4-3.6) G/DL Albumin/Globulin Ratio 1.6 (1.1-2.2) RATIO Specimen Hemolysis < 15 (0-25) Ur Collection Type Urine, clean catch Urine Color Yellow (YELLOW) Urine Clarity Clear Urine pH 6.0 (5.0-8.0) Ur Specific [place] <=1.005 L (1.015-1.025) Urine Protein Negative (NEGATIVE) Urine Glucose (UA) Negative (NEGATIVE) Urine Ketones Negative (NEGATIVE) Urine Occult Blood Negative (NEGATIVE) Urine Nitrate Negative (NEGATIVE) Urine Bilirubin Negative (NEGATIVE) Urine Urobilinogen 0.2 (NORMAL) EU/DL Ur Leukocyte Esterase Negative (NEGATIVE) Urinalysis Comment Microscopic not ind. - Radiology Data CT HEAD / C-spine - Negative. CT Pelvis: Cortical bone loss of the sacrum. No acute fracture. CXR: Negative. - EKG Data EKG #1 EKG results narrative: Sinus rhythm. 61 bpm. No STEMI. Interpretation: no acute changes Disposition Clinical Impression: FALL Disposition: 02 To [facility] Condition: Stable Time of Disposition: 01:00 (Admit. Dr. Correa. ) - Seen By: physician
[2017-01-17] MEDS ORDERED: FentaNYL 100 MCG/2 ML INJECTION IVP ONE (02:18)
[2017-01-17] MEDS ORDERED: D5-1/2NS 1,000 ML IV SCH (02:42)
[2017-01-17] MEDS ORDERED: IBUPROFEN 600 MG TABLET PO PRN (02:42)
[2017-01-17] MEDS ORDERED: ONDANSETRON 4 MG/2 ML INJECTION IVP PRN (02:42)
--- NOTE | 2017-01-17 03:36 | History & Physical Report ---
<Mikal Quinonez Galen - Last Filed: 01/17/17 03:32> History of Present Illness Date: 01/17/17 Chief complaint: right hip pain HPI: This is a very nice 76 year old female who lives independently at home with her disabled . 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 The patient was getting out of bed this evening and fell. Non syncopal. increased pain right hip. Patient unable to put weight on right hip. In the ED the patient's metabolic workup is unremarkable. The patient had a plain x ray that was unremarkable. The patient had a CT that did not demonstrate a new fx but old fx. The patient continues to be unable to bear weight Radiology suggested MrI in am if pain persisted. AT this time the patient will be an observation admission to further assess for occult right hip fx. Note that the patient drinks every evening 2 to 3 2 finger scotch. Review of Systems Review of systems: patient denies headache, no change in vision, no neck pain. no chest pain, no increased shortness of breath, no heart palpitations, no abdomen pain, no nausea or vomiting, no change in BM, no urine difficulty, pain to right hip is appreciated with any activity pain is worsening, no focal neuro complaints. patient with mild edema to her legs that has recently improved with the addition of a diuretic 10 point ROS otherwise neg except for described above. PFSH HTN, IBS, Benign tremor Surgical History: T and A. bilateral carpal tunnel. TAHBSO - Social History Smoking status: Former smoker Substance use type: does not use Alcohol intake: current Alcohol intake frequency: 3 or more drinks per day Last drink: hours (ago) Housing: house Household members: spouse service: No Current occupational status: retired Current occupational exposures/hazards: No Does patient use chewing tobacco?: No Current residence: Apartment/Private Home Medications Home Medications Medication Instructions Recorded Confirmed Type Multivitamins W-Minerals (Multiple 1 tab PO DAILY #0 08/22/09 01/17/17 History Vitamin) Amlodipine Besylate 10 mg PO DAILY #0 tab 09/02/14 01/17/17 History Atenolol 100 mg PO BID #0 09/02/14 01/17/17 History Hyoscyamine Sulfate [Hyoscyamine 1 tab PO DAILY #0 tab 09/02/14 01/17/17 History Sulfate ER] Primidone 100 mg PO TID #0 tab 09/02/14 01/17/17 History Losartan Potassium 100 mg PO DAILY #0 tab 09/25/14 01/17/17 History Aspirin [Aspir 81] 1 tab PO DAILY #0 tab 11/20/15 01/17/17 History Calcium Citrate 600 mg PO BID 01/17/17 01/17/17 History CloNIDine [Catapres] 1 tab PO TID 01/17/17 01/17/17 History Hydralazine [Apresoline] 10 mg PO BID 01/17/17 01/17/17 History Allergies Allergy/AdvReac Type Severity Reaction Status Date / Time lisinopril Allergy Severe uncontrolled Verified 01/16/17 21:37 coughing Exam Vital Signs: Temp Pulse Resp BP Pulse Ox 98.0 F 63 20 184/80 H 92 01/17/17 02:52 01/17/17 02:52 01/17/17 02:52 01/17/17 02:52 01/17/17 02:52 Telemetry Rhythm: Sinus Rhythm Height: 1.57 m Weight: 72.9 kg Body Mass Index: 29.4 - Constitutional Present: mild distress, well nourished, well developed, average body habitus, cooperative - Routine HEENT Exam Head: Present: normocephalic, atraumatic Eye: Present: EOMI, PERRL ENT: Present: mucous membranes dry - Routine Neck Exam Present: supple, full ROM. Absent: tenderness, swelling, trauma - Routine Respiratory Exam Present: CTA bilaterally, distant breath sounds. Absent: prolonged expiratory phase, rales, respiratory distress, rhonchi, wheezes - Routine Cardiovascular Exam Present: RRR, no murmur - Routine Abdominal Exam Present: soft, normoactive bowel sounds, non distended. Absent: tenderness - Routine Extremities Exam Present: edema, full ROM (patient with pain when rotating right hip), tenderness Comments: 1 to 2 mm pitting edema - Routine Skin Exam Present: intact, warm. Absent: rash - Routine Neurological Exam Present: alert, oriented X3, CN II-XII intact. Absent: motor deficit, altered mental status - Routine Psychiatric Exam Present: normal affect, normal thought process Results - Labs CBC & Chem 7: 01/16/17 23:32 01/16/17 23:32 - Imaging and Cardiology CT scan - pelvis Additional comments: no acute fracture identified CT scan - head Additional comments: no acute process CT scan neck Additional comments: no acute process Assessment and Plan (1) Contusion of right hip Current visit: Yes Status: Acute 01/17/17 03:44 patient's exam would suggest an occult right hip fx. plain xray neg. ct neg. radiology r/c MR if pain continues. reassess in am. PT and OT conslted. have not yet contacted ortho in the middle of the night (2) Fall from ground level Current visit: Yes Status: Acute 01/17/17 03:44 patient lost her balance. no evidence of syncope. probable to a degree related to alcohol ingestion. no neuro workup indicated. CT head and neck negative. EKG non ischemic. Troponin negative. (3) Chronic alcohol abuse Current visit: Yes Status: Acute 01/17/17 03:45 At this time no withdrawl issues. will not cover with CIWA. obviously if in hospital greater than 24 hours will need to consider adding (4) Hypertension Current visit: Yes Status: Acute 01/17/17 03:46 on mulitiple agents. continue and adjust as indicated DVT Prophylaxis: SCD's Resuscitation Status: Full Code Sepsis Assessment - Focused Exam Vital Signs Temp Pulse Resp BP Pulse Ox 01/17/17 02:52 98.0 F 63 20 184/80 H 92 Hospital Course Summary Disclaimer: The visit summary below is not to be considered part of the above Progress Note. <Jo Ann Sotomayor - Last Filed: 01/17/17 10:33> History of Present Illness Date: 01/17/17 [facility] Patient Stated Medical History Cerebrovascular Accident Yes: unknown date or whether it was a TIA Cataracts Yes: 2016 Hypertension Yes Other GI Yes: IBS Substance Use Disorder Yes Exam Vital Signs: Temp Pulse Resp BP Pulse Ox 97.3 F 65 18 181/78 H 95 01/17/17 08:00 01/17/17 08:00 01/17/17 08:00 01/17/17 08:00 01/17/17 08:00 Height: 1.57 m Weight: 72.9 kg Results - Labs CBC & Chem 7: 01/16/17 23:32 01/16/17 23:32 Assessment and Plan (1) Contusion of right hip Current visit: Yes Status: Acute (2) Fall from ground level Current visit: Yes Status: Acute (3) Chronic alcohol abuse Current visit: Yes Status: Acute (4) Hypertension Current visit: Yes Status: Acute Assessment and Plan: 01/17/2017-Dr. Sotomayor I reviewed the H&P above dictated by Dr. Quinonez. I did independently seen and examined the patient. Please see my additions to the H&P below. Patient is a very pleasant 76-year-old female who fell last night when she got up to go to the bathroom. She states she occasionally feels orthostatic if she stands up too quickly and she thinks she just got up too quickly. She fell and has had pain in the left medial upper thigh/pelvic area since her fall. She is not able to walk. Plain x-ray and CT were obtained and did not show any acute fracture. The patient states otherwise she feels well. She was feeling fine during the day prior to her fall. She denied any fevers, chills or sweats. She denies any acute infections. She is not hurting anywhere else after her fall. She denied any head pain or loss of consciousness. She does drink 2-3 large glasses of scotch every night. She states sometimes she does go a day or 2 without drinking and does not have symptoms of withdrawal. She states she is uncertain if she took her medications last night. Comprehensive review of systems is significant for chronic tremors. She feels very tired today because she did not sleep last night. Otherwise comprehensive review of systems is negative other than the above in history of present illness. Past medical history is significant for hypertension, irritable bowel syndrome, and benign tremor for which she sees Dr. Tapia. Past surgical history includes tonsillectomy and adenoidectomy, bilateral carpal tunnel surgery, LUPIS, and right ankle fracture repair. Social history includes patient being a former smoker. She drinks 3 alcoholic drinks per day. 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 Family history is significant for her father having diabetes and heart rhythm abnormalities. She had a grandmother and brother with tremors. Physical exam Patient is alert and oriented 3 and in no acute distress. She has minimal tremors. HEENT reveals sclerae to be anicteric and pupils are equal round and reactive. Extraocular movements are intact. Or fax is moist. Neck is supple. Chest is clear to auscultation. Cardiovascular reveals a regular rate and rhythm without murmur S3 or S4. Abdomen is soft and nontender. Extremities reveal no edema. Skin is warm and dry and without rashes. Lab shows essentially normal CBC. Comprehensive metabolic is normal other than mildly elevated sodium of 145, BUN 19, creatinine 0.6, calculated osmolality 281. Troponin is less than 0.012. Urinalysis is negative. Radiology is reviewed and I agree with assessment above. Impression Fall, likely secondary to orthostasis. Right hip pain with inability to walk without assist. She is only able to take 1 step and pivoted to the bedside commode. Excessive alcohol use Chronic tremors Hypertension-currently with elevated blood pressure Plan Dr. Betts was consulted regarding hip pain. DC IV fluids Restart patient's usual home medications especially blood pressure medications for elevated blood pressure. We'll recheck blood pressure after medications have been given. Recommend alcohol cessation. I think this likely contributed to her fall. Monitor for alcohol withdrawal. Continue thiamine and folate. Add telemetry Sepsis Assessment - Focused Exam Vital Signs Temp Pulse Resp BP Pulse Ox 01/17/17 08:00 97.3 F 65 18 181/78 H 95 01/17/17 02:52 98.0 F 63 20 184/80 H 92 Hospital Course Summary Disclaimer: The visit summary below is not to be considered part of the above Progress Note.
[2017-01-17] MEDS ORDERED: Pharmacy Consult for Fall Risk MC PRN (03:45)
[2017-01-17] MEDS: HYDROMORPHONE 2 MG/ML INJECTION IVP PRN (03:54)
--- NOTE | 2017-01-17 08:05 | CT Scan Report ---
Indication: pain, inability to ambulate PROCEDURE: CT pelvis wo con: Encounter: Initial Comparison: Pelvis radiograph dated June 29, 2015 Technique: Axial noncontrast CT imaging through the pelvis with coronal and sagittal two-dimensional reformats. Automated Exposure Control and Iterative Reconstruction dose reducing techniques were utilized. Findings: Chronic appearing deformity of the left superior and inferior pubic rami at the pubic symphysis. Age indeterminate right inferior pubic ramus deformity. Soft tissues of the pelvis show no acute findings. Impression: No acute fracture. The preliminary report mentions a possible osseous erosion in the sacrum which is difficult to appreciate. Further evaluation with pelvic MRI could be performed if there is ongoing pain. There is a preliminary report by [facility]. .
--- NOTE | 2017-01-17 08:24 | CT Scan Report ---
Indication: fall PROCEDURE: CT head/brain wo con: Encounter: Initial Comparison: September 02, 2014 Technique: Axial CT images through the head were performed without contrast. Iterative Reconstruction dose reducing technique was utilized. FINDINGS: Mild to moderate atrophy. The ventricles are of normal size, shape, and configuration for the patient's age. There is no evidence of acute intracranial hemorrhage, midline displacement, or mass effect. There are numerous areas of low attenuation in the white matter which most likely represent changes of chronic microvascular ischemia. The CT attenuation of the brain parenchyma is otherwise normal within the cerebellum, brain stem, and cerebral hemispheres. The tympanic cavities and mastoid air cells are free of appreciable disease. There are no definite fractures of the skull base, calvarium, or visualized portion of the midface. IMPRESSION: No CT evidence of acute traumatic intracranial injury. There is a preliminary report by [facility]. .
--- NOTE | 2017-01-17 08:25 | XRay Report ---
Indication: fall, right hip pain PROCEDURE: XR pelvis w/ 2 view RT hip: Encounter: Initial Comparison: CT pelvis from the same date Findings: There is no acute fracture, dislocation or malalignment identified. Old deformity of the left pubic symphysis. Degenerative change in the lower lumbar spine. Bony demineralization. Impression: No acute osseous abnormality. .
--- NOTE | 2017-01-17 08:25 | CT Scan Report ---
Indication: fall with neck pain PROCEDURE: CT cervical spine wo con: Encounter: Initial Comparison: June 29, 2015 Technique: Axial CT images through the cervical spine were performed without contrast. Coronal and sagittal reformatted images were also obtained. Automated Exposure Control and Iterative Reconstruction dose reducing techniques were utilized. FINDINGS: The alignment of the cervical spine is normal. Multilevel degenerative changes are present. There is no evidence of acute fracture or subluxation of the cervical spine. The atlantoaxial articulation, dens, and upper cervical spine demonstrate no subluxation. The paraspinal soft tissues and spinal canal appear unremarkable. IMPRESSION: No acute traumatic abnormality of the cervical spine. There is a preliminary report by [facility]. .
[2017-01-17] MEDS ORDERED: PRIMIDONE 50 MG TABLET PO SCH (09:00)
[2017-01-17] MEDS: LOSARTAN 100 MG TABLET PO SCH (09:12)
[2017-01-17] MEDS: HYDRALAZINE 10 MG TABLET PO SCH (09:12)
[2017-01-17] MEDS: HYOSCYAMINE 0.375 MG PO SCH (09:13)
[2017-01-17] MEDS: ATENOLOL 100 MG TABLET PO SCH ×2 (09:13→21:05)
[2017-01-17] MEDS: PRIMIDONE 50 MG TABLET PO SCH ×3 (09:13→21:04)
[2017-01-17] MEDS: AMLODIPINE 10 MG TABLET PO SCH (09:13)
[2017-01-17] MEDS: ASPIRIN *EC* 81 MG TABLET PO SCH (09:14)
--- NOTE | 2017-01-17 13:49 | Magnetic Resonance Report ---
Indication: Fall last night with right hip/pelvic pain PROCEDURE: MR pelvis wo con: Encounter: Initial Comparison: CT pelvis from earlier today Technique: Multiplanar multisequence MR imaging of the pelvis was performed without contrast Findings: There is focal T1 hypointensity and T2 hyperintensity in the right superior pubic ramus near the acetabulum. There is also some mild edema at the right inferior pubic ramus at the site of subtle cortical angulation. This is consistent with acute fractures. There is also edema within the right adductor musculature consistent with strain and partial tearing. No evidence of a femoral head or neck fracture identified. 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 Hamstring origins are intact. Soft tissues of the pelvis are otherwise grossly unremarkable. No obvious sacral abnormality to correspond with the CT finding of sacral erosion. Fatty infiltration of the sacrum and lumbar vertebrae. Impression: Acute nondisplaced fractures of the right superior and inferior pubic rami with associated muscular tearing. .
--- NOTE | 2017-01-17 14:12 | Orthopedic Consult Note ---
Orthopedic Consultation HPI - Consultation Info Consult Date: 01/17/17 Attending Physician: Jo Ann Sotomayor MD Consult Reason: fracture (right groin pain after a fall) - History of Present Illness Mrs. Amaya is a kind 76-year-old female who is well-known to me from previous foot fracture. She fell last evening onto her right side and had severe right groin pain. She is brought to the emergency room by 911 and plain x-rays were negative for injury CT scan was obtained which also did not have any obvious fractures the possible osseous erosion of the sacrum. She was admitted under the hospitalist service. She states the pain is anterior in the groin but does not feel like a groin pull. She has severe pain when she bears weight. She denies any numbness or tingling in her feet. She denies any low back pain or pain that radiates down her legs. Review of Systems - Constitutional Constitutional: Absent: chills, fever(s), night sweats - Cardiovascular Cardiovascular: Absent: chest pain, palpitations - Respiratory Respiratory: Absent: cough, dyspnea - Gastrointestinal Gastrointestinal: Absent: abdominal pain, nausea, vomiting PFSH Patient Stated Medical History Cerebrovascular Accident Yes: unknown date or whether it was a TIA Cataracts Yes: 2016 Hypertension Yes Other GI Yes: IBS Substance Use Disorder Yes Surgical History: T and A. bilateral carpal tunnel. TAHBSO - Social History Smoking status: Former smoker Does patient use chewing tobacco?: No Current residence: Apartment/Private Home Medications Home Medications Medication Instructions Recorded Confirmed Type Multivitamins W-Minerals (Multiple 1 tab PO DAILY #0 08/22/09 01/17/17 History Vitamin) Amlodipine Besylate 10 mg PO DAILY #0 tab 09/02/14 01/17/17 History Atenolol 100 mg PO BID #0 09/02/14 01/17/17 History Hyoscyamine Sulfate [Hyoscyamine 1 tab PO DAILY #0 tab 09/02/14 01/17/17 History Sulfate ER] Primidone 100 mg PO TID #0 tab 09/02/14 01/17/17 History Losartan Potassium 100 mg PO DAILY #0 tab 09/25/14 01/17/17 History Aspirin [Aspir 81] 1 tab PO DAILY #0 tab 11/20/15 01/17/17 History Calcium Citrate 600 mg PO BID 01/17/17 01/17/17 History CloNIDine [Catapres] 1 tab PO TID 01/17/17 01/17/17 History Hydralazine [Apresoline] 10 mg PO BID 01/17/17 01/17/17 History Allergies Allergy/AdvReac Type Severity Reaction Status Date / Time lisinopril Allergy Severe uncontrolled Verified 01/16/17 21:37 coughing Orthopedic Exam Vital signs: Temp Pulse Resp BP Pulse Ox 97.3 F 64 18 181/78 H 95 01/17/17 08:00 01/17/17 10:53 01/17/17 08:00 01/17/17 08:00 01/17/17 08:00 - Constitutional General Appearance: Present: no acute distress, well developed, well nourished - Respiratory Exam Present: non-labored - Cardiovascular Exam Present: pedal pulses intact - Abdominal Exam Present: soft - Hip Exam right Hip Exam: Present: alignment normal, ROM-normal. Absent: unequal leg length, tender over trochanter - Integumentary Exam Present: pink, warm, dry - Neurological Exam Present: intact to light touch, no deficits - Labs Result Diagrams: 01/16/17 23:32 01/16/17 23:32 - Diagnostic results Hip x-ray: report reviewed, image reviewed Hip MRI: report reviewed Hip CT: report reviewed, image reviewed Impression and Recommendation (1) Pubic ramus fracture Current visit: Yes Qualifiers: Encounter type: initial encounter Fracture type: closed Laterality: right Qualified Code(s): S32.591A - Other specified fracture of right pubis, initial encounter for closed fracture Status: Acute Recommend weightbearing as tolerated with follow-up inlet and outlet films after weightbearing 50 feet. Follow-up as an outpatient in 2-4 weeks. Hospital Course Summary Disclaimer: The visit summary below is not to be considered part of the above Progress Note.
[2017-01-17] MEDS: HYDROCODONE/APAP 5mg/325mg TABLET PO PRN ×2 (15:03→21:05)
[2017-01-17] MEDS ORDERED: OXAZEPAM 10 MG CAPSULE PO PRN (19:34)
[2017-01-18] MEDS: HYDRALAZINE 10 MG TABLET PO SCH ×3 (03:12→20:37)
[2017-01-18] MEDS: HYDROCODONE/APAP 5mg/325mg TABLET PO PRN ×5 (04:55→18:34)
[2017-01-18] MEDS: FOLIC ACID 1 MG TABLET PO SCH (08:40)
[2017-01-18] MEDS: HYOSCYAMINE 0.375 MG PO SCH (08:40)
[2017-01-18] MEDS: LOSARTAN 100 MG TABLET PO SCH (08:41)
[2017-01-18] MEDS: PRIMIDONE 50 MG TABLET PO SCH ×3 (08:41→20:37)
[2017-01-18] MEDS: ASPIRIN *EC* 81 MG TABLET PO SCH (08:41)
[2017-01-18] MEDS: AMLODIPINE 10 MG TABLET PO SCH (08:41)
[2017-01-18] MEDS: ATENOLOL 100 MG TABLET PO SCH ×2 (08:42→20:37)
--- NOTE | 2017-01-18 13:57 | XRay Report ---
Indication: evaluate fracture PROCEDURE: XR pelvis min 3V: Encounter: Initial Comparison: Pelvis MRI and CT dated January 17, 2017 Findings: The known nondisplaced right superior and inferior pubic ramus fractures seen on MRI are essentially not visible radiographically. No radiographically apparent fracture. Deformity of the left pubic symphysis again noted. Degenerative change in the lumbar spine and hips. Impression: Findings as above .
--- NOTE | 2017-01-18 19:18 | Progress Note ---
Subjective: The patient states that her pain is little bit better today. She was able to walk to the bathroom with a walker and assist today which is an improvement from yesterday. She states she does not have pain at rest but has significant pain when she gets up to walk. She denies any headache or chest pain. She is eating and drinking well. She denies any shortness of breath. She denies any anxiety or confusion. Objective Vital signs: Temp Pulse Resp BP Pulse Ox 97.2 F 67 20 147/71 H 93 01/18/17 15:16 01/18/17 16:00 01/18/17 15:16 01/18/17 15:16 01/18/17 15:16 Weight: 72.5 kg Comments: GEN-alert, oriented, no acute distress HEENT-sclera anicteric, oropharynx is moist NECK-supple CV-regular rate and rhythm without murmur CHEST-clear to auscultation bilaterally ABD-soft, nontender, nondistended with positive bowel sounds -no [place] EXT-no edema NEURO-no focal deficits, she has a chronic tremor that it is very minimal on my exam today, less tremulous than yesterday SKIN-warm and dry and without rashes - Constitutional Present: mild distress, well nourished, well developed, average body habitus, cooperative Results - Labs CBC & Chem 7: 01/17/17 20:08 01/17/17 20:08 Assessment and Plan (1) Contusion of right hip Current visit: Yes Status: Acute 01/17/17 03:44 patient's exam would suggest an occult right hip fx. plain xray neg. ct neg. radiology r/c MR if pain continues. reassess in am. PT and OT conslted. have not yet contacted ortho in the middle of the night (2) Fall from ground level Current visit: Yes Status: Acute 01/17/17 03:44 patient lost her balance. no evidence of syncope. probable to a degree related to alcohol ingestion. no neuro workup indicated. CT head and neck negative. EKG non ischemic. Troponin negative. (3) Chronic alcohol abuse Current visit: Yes Status: Acute 01/17/17 03:45 At this time no withdrawl issues. will not cover with CIWA. obviously if in hospital greater than 24 hours will need to consider adding (4) Hypertension Current visit: Yes Status: Acute 01/17/17 03:46 on mulitiple agents. continue and adjust as indicated Assessment and Plan: Impression Fall, likely secondary to orthostasis. Right inferior and superior pubic rami fracture with associated muscle tearing seen on MRI Excessive alcohol use-monitoring for alcohol withdrawal. No signs at all of alcohol withdrawal at this time. Chronic tremors Hypertension-improved control today. Patient states she was scheduled to see Dr. Zarate next week for difficult to control hypertension. She states she was not missing any of her medications. It's possible that her excessive alcohol use is contributing to blood pressure issues. I did recommend cessation of alcohol. Plan The patient had a post ambulation x-ray which showed no dislocation of fracture. Dr. Betts recommended weightbearing as tolerated. We are waiting to hear back from the patient's insurance to see if [facility] can [facility] Insurance did not approve inpatient rehabilitation. Recommend alcohol cessation. I think this likely contributed to her fall. Monitor for alcohol withdrawal. Continue thiamine and folate. I did speak with a physician from [facility] who recommended continued observation status. Sepsis Assessment - Evaluation Sepsis screening result: No Definite Risk - Focused Exam Vital Signs Temp Pulse Resp BP Pulse Ox 01/18/17 16:00 67 01/18/17 15:16 97.2 F 63 20 147/71 H 93 01/18/17 08:00 97.6 F 55 L 16 185/98 H 94 Respiratory exam: Present: CTA bilaterally, distant breath sounds. Absent: prolonged expiratory phase, rales, respiratory distress, rhonchi, wheezes Cardiovascular exam: Present: RRR, no murmur Capillary refill: < 2-3 Seconds Hospital Course Summary Disclaimer: The visit summary below is not to be considered part of the above Progress Note. Hospital Course: 01/17/2017-Dr. Sotomayor I reviewed the H&P above dictated by Dr. Quinonez. I did independently seen and examined the patient. Please see my additions to the H&P below. Patient is a very pleasant 76-year-old female who fell last night when she got up to go to the bathroom. She states she occasionally feels orthostatic if she stands up too quickly and she thinks she just got up too quickly. She fell and has had pain in the left medial upper thigh/pelvic area since her fall. She is not able to walk. Plain x-ray and CT were obtained and did not show any acute fracture. The patient states otherwise she feels well. She was feeling fine during the day prior to her fall. She denied any fevers, chills or sweats. She denies any acute infections. She is not hurting anywhere else after her fall. She denied any head pain or loss of consciousness. She does drink 2-3 large glasses of scotch every night. She states sometimes she does go a day or 2 without drinking and does not have symptoms of withdrawal. She states she is uncertain if she took her medications last night. Comprehensive review of systems is significant for chronic tremors. She feels very tired today because she did not sleep last night. Otherwise comprehensive review of systems is negative other than the above in history of present illness. Past medical history is significant for hypertension, irritable bowel syndrome, and benign tremor for which she sees Dr. Tapia. Past surgical history includes tonsillectomy and adenoidectomy, bilateral carpal tunnel surgery, LUPIS, and right ankle fracture repair. Social history includes patient being a former smoker. She drinks 3 alcoholic drinks per day. 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 Family history is significant for her father having diabetes and heart rhythm abnormalities. She had a grandmother and brother with tremors. Physical exam Patient is alert and oriented 3 and in no acute distress. She has minimal tremors. HEENT reveals sclerae to be anicteric and pupils are equal round and reactive. Extraocular movements are intact. Or fax is moist. Neck is supple. Chest is clear to auscultation. Cardiovascular reveals a regular rate and rhythm without murmur S3 or S4. Abdomen is soft and nontender. Extremities reveal no edema. Skin is warm and dry and without rashes. Lab shows essentially normal CBC. Comprehensive metabolic is normal other than mildly elevated sodium of 145, BUN 19, creatinine 0.6, calculated osmolality 281. Troponin is less than 0.012. Urinalysis is negative. Radiology is reviewed and I agree with assessment above. Impression Fall, likely secondary to orthostasis. Right hip pain with inability to walk without assist. She is only able to take 1 step and pivoted to the bedside commode. Excessive alcohol use Chronic tremors Hypertension-currently with elevated blood pressure Plan Dr. Betts was consulted regarding hip pain. DC IV fluids Restart patient's usual home medications especially blood pressure medications for elevated blood pressure. We'll recheck blood pressure after medications have been given. Recommend alcohol cessation. I think this likely contributed to her fall. Monitor for alcohol withdrawal. Continue thiamine and folate. Add telemetry
[2017-01-18] MEDS: HYDROMORPHONE 2 MG/ML INJECTION IVP PRN (22:33)
[2017-01-19] MEDS: HYDROCODONE/APAP 5mg/325mg TABLET PO PRN ×2 (04:37→14:06)
[2017-01-19] MEDS: HYDROMORPHONE 2 MG/ML INJECTION IVP PRN (06:53)
[2017-01-19] MEDS: HYDRALAZINE 10 MG TABLET PO SCH (08:59)
[2017-01-19] MEDS: LOSARTAN 100 MG TABLET PO SCH (08:59)
[2017-01-19] MEDS: ATENOLOL 100 MG TABLET PO SCH (09:00)
[2017-01-19] MEDS: AMLODIPINE 10 MG TABLET PO SCH (09:00)
[2017-01-19] MEDS: FOLIC ACID 1 MG TABLET PO SCH (09:00)
[2017-01-19] MEDS: PRIMIDONE 50 MG TABLET PO SCH ×2 (09:00→14:03)
[2017-01-19] MEDS: HYOSCYAMINE 0.375 MG PO SCH (09:00)
[2017-01-19] MEDS: ASPIRIN *EC* 81 MG TABLET PO SCH (10:00)
--- NOTE | 2017-01-19 13:23 | Progress Note ---
Subjective: F/U: Pubic Ramus fracture Doing okay. Pain controlled at rest, but does become uncomfortable with ambulation-needs assistance when active and moving. Pain medications are helping ; pt feels she is tolerating them well. Bowels are moving. No nausea or ab pain. Breathing well. No chest pressure or pain. Urinating without difficulty. No fever or chills. Objective Vital signs: Temp Pulse Resp BP Pulse Ox 98.2 F 64 17 162/76 H 93 01/19/17 07:27 01/19/17 07:27 01/19/17 07:27 01/19/17 07:27 01/19/17 07:27 Weight: 71.9 kg - Constitutional Present: well nourished, well developed, average body habitus, cooperative - Routine HEENT Exam Head: Present: normocephalic, atraumatic Eye: Present: EOMI, PERRL. Absent: conjunctival icterus, nystagmus ENT: Present: mucous membranes moist - Routine Respiratory Exam Present: CTA bilaterally. Absent: rales, respiratory distress, wheezes - Routine Cardiovascular Exam Present: RRR - Routine Abdominal Exam Present: soft, normoactive bowel sounds, non distended, non tender - Routine Extremities Exam Present: no edema, pulses intact. Absent: cyanosis, clubbing - Routine Musculoskeletal Exam Musculoskeletal: no clubbing or cyanosis, normal strength - Routine Skin Exam Present: intact, warm. Absent: erythema, mottling - Routine Neurological Exam Present: alert, oriented X3, CN II-XII intact. Absent: motor deficit - Routine Psychiatric Exam Present: normal affect, normal thought process, cooperative, good insight, good judgment. Absent: agitated Results - Labs CBC & Chem 7: 01/17/17 20:08 01/17/17 20:08 Assessment and Plan (1) Pubic ramus fracture Current visit: Yes Status: Acute closed right fracture (2) Contusion of right hip Current visit: Yes Status: Acute 01/17/17 03:44 patient's exam would suggest an occult right hip fx. plain xray neg. ct neg. PT and OT conslted. (3) Fall from ground level Current visit: Yes Status: Acute 01/17/17 03:44 patient lost her balance. no evidence of syncope. probable to a degree related to alcohol ingestion. no neuro workup indicated. CT head and neck negative. EKG non ischemic. Troponin negative. (4) Chronic alcohol abuse Current visit: Yes Status: Chronic 01/17/17 03:45 At this time no withdrawl issues. will not cover with CIWA. obviously if in hospital greater than 24 hours will need to consider adding (5) Hypertension Current visit: Yes Status: Chronic 01/17/17 03:46 on mulitiple agents. continue and adjust as indicated (6) Osteoporosis Current visit: Yes Status: Chronic (7) Osteoarthritis Current visit: Yes Status: Chronic (8) Irritable bowel syndrome Current visit: Yes Status: Chronic Assessment and Plan: BP stable. No evidence of ETOH withdrawal. Will add Miacalcin and Calcium with Vitamin D due to fracture. Continue [place] as needed for pain control - discussed side effects. Colace, MOM, and Dulcolax suppositories as needed for constipation. Continue with PT/OT to help maximize functional status. CM working on discharge disposition; arrangements made at [facility]. Will d/c to [facility] for skilled care-pt medically stable for discharge. See orders for details. Cased discussed with CM. Time spent with pt care and discharge greater than 35 minutes. Sepsis Assessment - Evaluation Sepsis screening result: No Definite Risk - Focused Exam Vital Signs Temp Pulse Resp BP Pulse Ox 01/19/17 07:27 98.2 F 64 17 162/76 H 93 Respiratory exam: Present: CTA bilaterally, distant breath sounds. Absent: prolonged expiratory phase, rales, respiratory distress, rhonchi, wheezes Cardiovascular exam: Present: RRR, no murmur Capillary refill: < 2-3 Seconds Hospital Course Summary Disclaimer: The visit summary below is not to be considered part of the above Progress Note. Hospital Course: 01/17/2017-Dr. Sotomayor OBS Dr. Betts was consulted regarding hip pain. DC IV fluids Restart patient's usual home medications especially blood pressure medications for elevated blood pressure. We'll recheck blood pressure after medications have been given. Recommend alcohol cessation. I think this likely contributed to her fall. Monitor for alcohol withdrawal. Continue thiamine and folate. Add telemetry MRI of pelvis showing closed right pubic ramus fracture. 01/18 The patient had a post ambulation x-ray which showed no dislocation of fracture. Dr. Betts recommended weightbearing as tolerated. We are waiting to hear back from the patient's insurance to see if [facility]. Insurance did not approve inpatient rehabilitation. Recommend alcohol cessation. I think this likely contributed to her fall. Monitor for alcohol withdrawal. Continue thiamine and folate. I did speak with a physician from [facility] who recommended continued observation status. 01/19 BP stable. No evidence of ETOH withdrawal. Will add Miacalcin and Calcium with Vitamin D due to fracture. Continue [place] as needed for pain control - discussed side effects. Colace, MOM, and Dulcolax suppositories as needed for constipation. Continue with PT/OT to help maximize functional status. CM working on discharge disposition - hope for d/c in near future.
[2017-01-19] MEDS ORDERED: DOCUSATE SODIUM 100 MG CAPSULE PO PRN (14:25)
[2017-01-19] MEDS ORDERED: BISACODYL 10 MG SUPPOSITORY RECTALLY PRN (14:26)
--- NOTE | 2017-01-19 14:30 | Extended Care Facility Orders ---
Admission Orders Admit to:: Alf Allergies/Adverse Reactions: Allergies lisinopril Allergy (Severe, Verified 01/16/17 21:37) uncontrolled coughing Admitting Diagnosis: Right hip pain,s/p fall - Right pubic ramus fracture Admitting Physician: Jo Ann Sotomayor MD Attending Physician: Dr Neri Code Status: Full Code Anticiapted Length of Stay: 30 days or less Rehab Potential: good Rehab Prognosis: good Diet: No added salt Wound/Incision Care: N/A May use Facility Protocol or Standing Orders: Yes May have flu vaccine: Yes Evaluations/Treatment: PT, OT Alf Certification: I certify that SNF services are required to be given on an Inpatient basis because of the patients need for snf care on a continuing basis for the condition(s) for which he/she received inpatient hospital services prior to his/her transfer to the SNF. SNF inpatient care is necessary for the following reasons Indication for Alf: Other (Skilled PT/OT to maximize functional status. ) - Additional Information Referrals: Mari Neri DO [Physician] - Additional Orders: F/U with Dr Neri in 1 week. F/U with Dr Betts in 2 -4 weeks. WBAT. Walker for assistance.
--- NOTE | 2017-01-19 14:35 | Discharge Summary ---
Discharge Information Date of admission: 01/17/17 02:50 Anticipated date of discharge: 01/19/17 Attending Physician: Jo Ann Sotomayor MD Primary care physician: Dr Neri Consults: 01/17/17 09:28 Physician Consult [CONS] Routine Consulting Provider: Sandeep Betts Reason For Exam: hip pain post fall Ordering Provider has Notified Rabbit Breeder: Yes 01/18/17 07:19 Doctor [Physician Consult] [CONS] Routine Consulting Provider: Danielle Sylvester Reason For Exam: CONTINUED CARE Ordering Provider has Notified Rabbit Breeder: Yes - Discharge Diagnosis (1) Pubic ramus fracture Qualifiers: Encounter type: initial encounter Fracture type: closed Laterality: right Qualified Code(s): S32.591A - Other specified fracture of right pubis, initial encounter for closed fracture Status: Acute (2) Contusion of right hip Qualifiers: Encounter type: initial encounter Qualified Code(s): S70.01XA - Contusion of right hip, initial encounter Status: Acute (3) Fall from ground level Status: Acute (4) Chronic alcohol abuse Status: Chronic (5) Hypertension Status: Chronic (6) Osteoporosis Status: Chronic (7) Osteoarthritis Qualifiers: Osteoarthritis location: unspecified site Osteoarthritis type: primary Qualified Code(s): M19.91 - Primary osteoarthritis, unspecified site Status: Chronic (8) Irritable bowel syndrome Qualifiers: Irritable bowel syndrome type: unspecified Qualified Code(s): K58.9 - Irritable bowel syndrome without diarrhea Status: Chronic - Laboratory Labs: 01/17/17 20:08 01/17/17 20:08 History of Present Illness HPI: This is a very nice 76 year old female who lives independently at home with her disabled . 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 The patient was getting out of bed this evening and fell. Non syncopal. increased pain right hip. Patient unable to put weight on right hip. In the ED the patient's metabolic workup is unremarkable. The patient had a plain x ray that was unremarkable. The patient had a CT that did not demonstrate a new fx but old fx. The patient continues to be unable to bear weight Radiology suggested MrI in am if pain persisted. AT this time the patient will be an observation admission to further assess for occult right hip fx. Note that the patient drinks every evening 2 to 3 2 finger scotch. For complete details of the H&P, refer to that document. Hospital Course Hospital course: 01/17/2017-Dr. Sotomayor OBS Dr. Betts was consulted regarding hip pain. DC IV fluids Restart patient's usual home medications especially blood pressure medications for elevated blood pressure. We'll recheck blood pressure after medications have been given. Recommend alcohol cessation. I think this likely contributed to her fall. Monitor for alcohol withdrawal. Continue thiamine and folate. Add telemetry MRI of pelvis showing closed right pubic ramus fracture. 01/18 The patient had a post ambulation x-ray which showed no dislocation of fracture. Dr. Betts recommended weightbearing as tolerated. We are waiting to hear back from the patient's insurance to see if she can go to retirement. Insurance did not approve inpatient rehabilitation. Recommend alcohol cessation. I think this likely contributed to her fall. Monitor for alcohol withdrawal. Continue thiamine and folate. I did speak with a physician from [facility] who recommended continued observation status. 01/19 BP stable. No evidence of ETOH withdrawal. Will add Miacalcin and Calcium with Vitamin D due to fracture. Continue [place] as needed for pain control - discussed side effects. Colace, MOM, and Dulcolax suppositories as needed for constipation. Continue with PT/OT to help maximize functional status. Arrangements made for skilled care at [facility] - will discharge as medically stable Above narrative is a brief summary of patient's hospitalization; for complete details of the hospital course, refer to the medical record Case discussed with CM. Time spent with patient's care and discharge 35 minutes. Discharge Plan - Med Rec/Dispo Referrals/Follow Up: Mari Neri DO [Physician] - 1 Week Sandeep Betts MD [Physician] - 2 Weeks Additional Instructions: WBAT Prescriptions: New Bisacodyl Supp [Dulcolax] 10 mg RECTALLY DAILY PRN supp PRN Reason: Constipation Calcium 600 + D [Caltrate + D] 1 tab PO BID Docusate Sodium [Colace] 100 mg PO BID PRN cap PRN Reason: Constipation Hydrocodone/APAP 5/325 [[place] 5/325] 1 tab PO Q6H PRN #30 PRN Reason: Pain Milk of Magnesia [Mom] 30 ml PO DAILY PRN PRN Reason: Constipation Thiamine HCl 100 mg PO DAILY Calcitonin Nasal [place] [Miacalcin Maljamar] 1 spray NS DAILY bottle Folic Acid [Folate] 1 mg PO DAILY Oxazepam [Serax] 15 mg PO TID PRN #20 cap PRN Reason: Agitation Continue Primidone 100 mg PO TID #0 tab Hyoscyamine Sulfate [Hyoscyamine Sulfate ER] 1 tab PO DAILY #0 tab Aspirin [Aspir 81] 1 tab PO DAILY #0 tab CloNIDine [Catapres] 1 tab PO TID Hydralazine [Apresoline] 10 mg PO BID Multivitamins W-Minerals (Multiple Vitamin) 1 tab PO DAILY #0 Atenolol 100 mg PO BID #0 Amlodipine Besylate 10 mg PO DAILY #0 tab Losartan Potassium 100 mg PO DAILY #0 tab Discontinued Calcium Citrate 600 mg PO BID - Disposition 03 To SNU Not [facility] ([facility])
[2017-01-19] MEDS ORDERED: CALCIUM 600 + VIT D 400 TABLET PO SCH (21:00)
[2017-01-20] MEDS ORDERED: CALCITONIN NASAL SPRAY 3.7ml NS SCH (09:00)
== END 2017-01-19 15:40 ==
LOC: SRG 21:23 → ED 21:23 → MED 21:23 → ED 01-17 02:30 → SRG 01-17 02:30 → UNDODISOB 01-19 15:40
PROVIDERS: ADMIT Emergency Medicine; ATTEND Internal Medicine